=== PATIENT | male | born 1940 | race Caucasian/White ===

== ENCOUNTER 2016-11-08 19:07 | Inpatient (IN) ==
[2016-11-08] MEDS ORDERED: GI Cocktail 40 ML EACH PO ONE (19:20)
[2016-11-08] MEDS ORDERED: Aspirin 325 MG TABLET PO ONE (19:20)
--- NOTE | 2016-11-08 19:23 | Emergency Department Note ---
Disposition Clinical Impression: Epigastric pain, Diabetes mellitus, new onset, Acute kidney injury Chest pain Qualifiers: Chest pain type: unspecified Qualified Code(s): R07.9 - Chest pain, unspecified DKA (diabetic ketoacidoses) Qualifiers: Diabetes mellitus type: type 2 Diabetes mellitus complication detail: without coma Qualified Code(s): E13.10 - Other specified diabetes mellitus with ketoacidosis without coma Disposition: Admitted As Inpatient Condition: Serious Time of Disposition: 21:02 Chest Pain HPI - General Chief Complaint: ED Chest Pain Stated Complaint: CP Time Seen by Provider: 11/08/16 19:14 Source: patient, EMS Mode of arrival: ambulatory Limitations: no limitations Vital Signs Reviewed: Yes Nursing Notes Reviewed: Yes - History of Present Illness HPI Narrative: Patient is a 76-year-old male with past medical history of CVA, 2 previous MIs, previous bypass, previous stenting 4, skin cancer with mets and on chemo. He presents today due to 2 different complaints. First complaint is chest pain that has been occurring for the past 2-3 weeks. He states that it is left sided , sharp in nature, occurs for maybe 1-2 minutes and then goes away. It happens while at rest. Does not occur during exertion. He also complains of some mild right-sided jaw pain at the same time the left chest pain occurs. He has a second complaint of epigastric pain and burning. He said that this began today , he has mild burning pain in the epigastric region that radiates up into his chest. Denies having any history of GERD. Has not taken any medication home, has not taken aspirin, nitroglycerin, and antacids. As any other nausea, vomiting, fevers, change in bowel or bladder habits. Severity scale (1-10): 0 - Related Data Home Medications Medication Instructions Recorded Confirmed Clopidogrel [Plavix] 75 mg PO DAILY 07/23/15 11/08/16 Cyclobenzaprine [Flexeril] 10 mg PO HS 07/23/15 11/08/16 Metoprolol [Lopressor] 50 mg PO BID 07/23/15 11/08/16 Simvastatin [Zocor] 40 mg PO HS 07/23/15 11/08/16 Cetirizine HCl [Zyrtec] 10 mg PO DAILY PRN 06/14/16 11/07/16 Cyanocobalamin (Vitamin B-12) 1,000 mcg PO DAILY 06/14/16 11/07/16 [Vitamin B12] FLUoxetine HCl [Prozac] 20 mg PO DAILY 09/17/16 11/08/16 Albuterol Sulfate [Ventolin Hfa] 2 puff IH Q4H PRN 11/08/16 11/08/16 Isosorbide MONOnitrate (24 HR) 30 mg PO DAILY 11/08/16 11/08/16 [Imdur] Previous Rx's Medication Instructions Recorded Budesonide/Formoterol 160/4.5 1 puff IH BIDR #1 hfa.aer.ad 07/23/15 [Symbicort] Lidocaine/Prilocaine CREAM [Emla] 1 appl TP AD PRN #1 tube 04/12/16 Prochlorperazine Maleate 10 mg PO Q6HR PRN #60 tablet 04/12/16 [Compazine] Magic Mouthwash 5 ml PO Q4H PRN #240 ml 05/14/16 Megestrol Acetate [Megace] 10 ml PO BID #400 mls 11/07/16 Allergies Allergy/AdvReac Type Severity Reaction Status Date / Time shellfish derived Allergy Rash Verified 10/05/16 13:36 tree and shrub pollen Allergy Rash Verified 10/05/16 13:36 All systems ED: reviewed and negative except as stated. Chest Pain PMH - Past Medical History Medical history: Reports: arthritis, cancer, COPD, coronary artery disease, CVA , GERD, hyperlipidemia, hypertension, malignancy, myocardial infarction, osteoporosis, TIA Surgical history: Reports: cancer surgery, coronary bypass (CABG), other Psychiatric history: Reports: anxiety, depression - Social History Smoking Status: Former smoker Alcohol use: Reports: rarely Drug use: Reports: none Physical Exam - General Limitations: no limitations General appearance: alert, other (Slow speech due to previous CVA) - Head Head exam: atraumatic, normocephalic, normal inspection - Eye Eye exam: Present: normal appearance, PERRL, EOMI - ENT ENT exam: normal exam, normal oropharynx, mucous membranes moist - Neck Neck exam: Present: normal inspection, full ROM, trachea midline - Chest Chest inspection: Present: normal inspection, symmetric chest wall rise. Absent : tenderness, rash - Respiratory Respiratory exam: Present: normal lung sounds bilaterally. Absent: respiratory distress, wheezes, stridor, accessory muscle use - Cardiovascular Cardiovascular exam: Present: regular rate, normal rhythm, normal heart sounds - Abdominal Exam Abdominal exam: Present: soft, tenderness (Mild tenderness in the epigastric region when palpated.). Absent: distention, guarding, rebound, rigidity - Extremities Exam Extremities exam: Present: normal inspection, full ROM. Absent: tenderness, pedal edema - Back Exam Back exam: Present: normal inspection, full ROM. Absent: tenderness - Neurological Exam Neurological exam: Present: alert, oriented X3, CN II-XII intact. Absent: motor sensory deficit - Psychiatric Psychiatric exam: Present: normal affect, normal mood - Skin Skin exam: Present: warm, dry, intact, normal color Course Course Narrative: Mildly hypertensive on presentation. Rest of vitals within normal limits. Physical exam shows no chest tenderness, lungs clear to auscultation, epigastric tenderness that is mild when palpated. Patient currently denies any left-sided chest pain. He does admit to some mild burning and epigastric region. We will give the patient aspirin, GI cocktail, obtain cardiac workup, obtain lipase. Concern for GERD versus pancreatitis. Also concern for ME due to previous cardiac history. 20:58 . Patient had blood sugars and 700s. Sodium and chloride are low. Bicarbonate is low. Potassium 5.5. Patient also has acute kidney injury. Patient has no history of diabetes in the past. His fluids started, insulin drip started as well. Additional DKA labs including VBG and a bit abducted butyrate. ABG pending. Beta hydroxybutyrate greater than 2.0. EKG shows normal sinus rhythm with no acute changes, chest x-ray negative, troponin negative. We will admit for new onset diabetes, DKA, acute kidney injury, chest pain rule out. 21:16 Dr. Coker accepted and requested blood cultures and a flu A, B, H1N1. Vital Signs Temperature 97.5 F L 11/08/16 19:10 Pulse Rate 91 11/08/16 19:10 Respiratory Rate 18 11/08/16 19:10 Blood Pressure 153/75 11/08/16 19:10 O2 Sat by Pulse Oximetry 97 11/08/16 19:10 Temperature 97.5 F L 11/08/16 19:10 Pulse Rate 80 11/08/16 20:45 Respiratory Rate 16 11/08/16 20:45 Blood Pressure 137/63 02/02/17 20:45 O2 Sat by Pulse Oximetry 97 11/08/16 20:45 Oxygen Delivery Oxygen Delivery Room Air Chest Pain - MDM Narrative Medical decision making narrative: Mildly hypertensive on presentation. Rest of vitals within normal limits. Physical exam shows no chest tenderness, lungs clear to auscultation, epigastric tenderness that is mild when palpated. Patient currently denies any left-sided chest pain. He does admit to some mild burning and epigastric region. We will give the patient aspirin, GI cocktail, obtain cardiac workup, obtain lipase. Concern for GERD versus pancreatitis. Also concern for ME due to previous cardiac history. 20:58 . Patient had blood sugars and 700s. Sodium and chloride are low. Bicarbonate is low. Potassium 5.5. Patient also has acute kidney injury. Patient has no history of diabetes in the past. His fluids started, insulin drip started as well. Additional DKA labs including VBG and a bit abducted butyrate. ABG pending. Beta hydroxybutyrate greater than 2.0. EKG shows normal sinus rhythm with no acute changes, chest x-ray negative, troponin negative. We will admit for new onset diabetes, DKA, acute kidney injury, chest pain rule out. 21:16 Dr. Coker accepted and requested blood cultures and a flu A, B, H1N1. - Medical Records Medical records reviewed: Yes I reviewed the patient's medical records. - Lab Data Lab results reviewed: Yes I reviewed the patient's lab results. Result diagrams: 11/08/16 19:43 11/08/16 19:43 Lab Results 11/08/16 11/08/16 11/08/16 Range/Units 19:43 19:43 19:43 WBC 17.6 H (4.3-11.1) K/mcL RBC 5.54 H (4.19-5.50) M/mcL Hgb 17.0 H (12.9-16.9) g/dL Hct 51.1 H (37.5-50.1) % MCV 92.2 (83.0-100.0) fL MCH 30.7 (28.0-33.3) pg MCHC 33.3 (31.6-35.5) g/dL RDW 12.3 (11.5-14.5) % Plt Count 300 (140-400) K/mcL MPV 10.2 (9.4-12.4) fL Immature Gran % 0.6 (0-4) % Seg Neutrophils % 87.9 % Lymphocytes % 4.5 % Monocytes % 6.8 % Eosinophils % 0.0 % Basophils % 0.2 % Neutrophils # 15.5 H (1.6-8.9) K/mcL Lymphocytes # 0.8 (0.6-4.6) K/mcL Monocytes # 1.2 (0.0-1.3) K/mcL Eosinophils # 0.0 (0.0-0.6) K/mcL Basophils # 0.0 (0.0-0.2) K/mcL PT 10.7 (9.4-12.1) Seconds INR 1.0 APTT 25.7 L (26.0-36.0) Seconds VBG pH (7.32-7.42) pH Units VBG pCO2 (41-51) mmHg VBG pO2 (25-40) mmHg VBG HCO3 (21-27) mEq/L Sodium (136-145) mEq/L Potassium (3.5-4.5) mEq/L Chloride (98-109) mEq/L Carbon Dioxide (19-29) mEq/L BUN (8-26) mg/dL Creatinine (0.72-1.25) mg/dL Est GFR ( Amer) (> 60) Est GFR (Non-Af Amer) (> 60) BUN/Creatinine Ratio (6-26) Glucose (70-99) mg/dL Calculated Osmolality (280-300) Calcium (8.6-10.8) mg/dL Phosphorus (2.3-4.7) mg/dL Magnesium (1.6-2.6) mg/dL Troponin I (0-0.03) ng/mL Lipase 25 (8-78) Units/L Beta-Hydroxybutyric Acd (0.02-0.27) mmol/L Urine Color (Yellow) Urine Clarity (Clear) Urine pH (5.0-8.0) pH Units Ur Specific [place] (1.010-1.025) Urine Protein (Neg-Trace) mg/dL Urine Glucose (UA) (Normal) mg/dL Urine Ketones (Negative) mg/dL Urine Blood (Negative) Urine Nitrite (Negative) Urine Bilirubin (Negative) Urine Urobilinogen (Normal) mg/dL Ur Leukocyte Esterase (Negative) Urine Microscopic RBC (0-3) per hpf Urine Microscopic WBC (0-3) per hpf Ur Squamous Epith Cells (None-Few) per lpf Urine Bacteria (None-Few) per hpf Hyaline Casts (None-Few) per lpf Ur Culture Indicated? (NO) 11/08/16 11/08/16 11/08/16 Range/Units 19:43 19:43 19:43 WBC (4.3-11.1) K/mcL RBC (4.19-5.50) M/mcL Hgb (12.9-16.9) g/dL Hct (37.5-50.1) % MCV (83.0-100.0) fL MCH (28.0-33.3) pg MCHC (31.6-35.5) g/dL RDW (11.5-14.5) % Plt Count (140-400) K/mcL MPV (9.4-12.4) fL Immature Gran % (0-4) % Seg Neutrophils % % Lymphocytes % % Monocytes % % Eosinophils % % Basophils % % Neutrophils # (1.6-8.9) K/mcL Lymphocytes # (0.6-4.6) K/mcL Monocytes # (0.0-1.3) K/mcL Eosinophils # (0.0-0.6) K/mcL Basophils # (0.0-0.2) K/mcL PT (9.4-12.1) Seconds INR APTT (26.0-36.0) Seconds VBG pH (7.32-7.42) pH Units VBG pCO2 (41-51) mmHg VBG pO2 (25-40) mmHg VBG HCO3 (21-27) mEq/L Sodium 128 L (136-145) mEq/L Potassium 5.5 H (3.5-4.5) mEq/L Chloride 94 L (98-109) mEq/L Carbon Dioxide 7 L* (19-29) mEq/L BUN 29 H (8-26) mg/dL Creatinine 1.92 H (0.72-1.25) mg/dL Est GFR ( Amer) 41 L (> 60) Est GFR (Non-Af Amer) 34 L (> 60) BUN/Creatinine Ratio 15 (6-26) Glucose 778 H* (70-99) mg/dL Calculated Osmolality 310 H (280-300) Calcium 10.0 (8.6-10.8) mg/dL Phosphorus 5.5 H (2.3-4.7) mg/dL Magnesium 2.2 (1.6-2.6) mg/dL Troponin I 0.00 (0-0.03) ng/mL Lipase (8-78) Units/L Beta-Hydroxybutyric Acd > 2.00 H (0.02-0.27) mmol/L Urine Color (Yellow) Urine Clarity (Clear) Urine pH (5.0-8.0) pH Units Ur Specific [place] (1.010-1.025) Urine Protein (Neg-Trace) mg/dL Urine Glucose (UA) (Normal) mg/dL Urine Ketones (Negative) mg/dL Urine Blood (Negative) Urine Nitrite (Negative) Urine Bilirubin (Negative) Urine Urobilinogen (Normal) mg/dL Ur Leukocyte Esterase (Negative) Urine Microscopic RBC (0-3) per hpf Urine Microscopic WBC (0-3) per hpf Ur Squamous Epith Cells (None-Few) per lpf Urine Bacteria (None-Few) per hpf Hyaline Casts (None-Few) per lpf Ur Culture Indicated? (NO) 11/08/16 11/08/16 Range/Units 20:32 20:51 WBC (4.3-11.1) K/mcL RBC (4.19-5.50) M/mcL Hgb (12.9-16.9) g/dL Hct (37.5-50.1) % MCV (83.0-100.0) fL MCH (28.0-33.3) pg MCHC (31.6-35.5) g/dL RDW (11.5-14.5) % Plt Count (140-400) K/mcL MPV (9.4-12.4) fL Immature Gran % (0-4) % Seg Neutrophils % % Lymphocytes % % Monocytes % % Eosinophils % % Basophils % % Neutrophils # (1.6-8.9) K/mcL Lymphocytes # (0.6-4.6) K/mcL Monocytes # (0.0-1.3) K/mcL Eosinophils # (0.0-0.6) K/mcL Basophils # (0.0-0.2) K/mcL PT (9.4-12.1) Seconds INR APTT (26.0-36.0) Seconds VBG pH 7.10 L* (7.32-7.42) pH Units VBG pCO2 37 L (41-51) mmHg VBG pO2 26 (25-40) mmHg VBG HCO3 11.5 L (21-27) mEq/L Sodium (136-145) mEq/L Potassium (3.5-4.5) mEq/L Chloride (98-109) mEq/L Carbon Dioxide (19-29) mEq/L BUN (8-26) mg/dL Creatinine (0.72-1.25) mg/dL Est GFR ( Amer) (> 60) Est GFR (Non-Af Amer) (> 60) BUN/Creatinine Ratio (6-26) Glucose (70-99) mg/dL Calculated Osmolality (280-300) Calcium (8.6-10.8) mg/dL Phosphorus (2.3-4.7) mg/dL Magnesium (1.6-2.6) mg/dL Troponin I (0-0.03) ng/mL Lipase (8-78) Units/L Beta-Hydroxybutyric Acd (0.02-0.27) mmol/L Urine Color Yellow (Yellow) Urine Clarity Clear (Clear) Urine pH 5.5 (5.0-8.0) pH Units Ur Specific [place] 1.030 H (1.010-1.025) Urine Protein 30 H (Neg-Trace) mg/dL Urine Glucose (UA) >=1000 H (Normal) mg/dL Urine Ketones 80 H (Negative) mg/dL Urine Blood Small H (Negative) Urine Nitrite Negative (Negative) Urine Bilirubin Negative (Negative) Urine Urobilinogen Normal (Normal) mg/dL Ur Leukocyte Esterase Negative (Negative) Urine Microscopic RBC 0-3 (0-3) per hpf Urine Microscopic WBC 0-3 (0-3) per hpf Ur Squamous Epith Cells Many H (None-Few) per lpf Urine Bacteria None Seen (None-Few) per hpf Hyaline Casts None Seen (None-Few) per lpf Ur Culture Indicated? NO (NO) - Radiology Data Radiology results reviewed: Yes I reviewed the patient's radiology results. Chest X-Ray 11/08/16 19:20 IMPRESSION: 1. No focal airspace disease. D/ / Vidal Gonzalez MD / Vidal Gonzalez MD Interpreting Provider: Vidal Gonzalez MD - EKG Data EKG attestation: Yes I reviewed and interpreted this EKG. EKG results narrative: 11/08/2016 at 19:12. Normal sinus rhythm. Rate 89. QTC 402. Normal axis. T- wave inversions in aVR, V1. No acute ST elevation or depression. Q waves in 2 , 3, aVF from old ME. No acute changes from previous EKG on 09/16/2016 Heart Score - Score History: Moderately Suspicious EKG: Normal Age: Greater than 65 Risk Factors: Equal/Greater than 3 risk factor or history of atherosclerotic disease Troponin: Less than normal limit HEART Score Total: 5
[2016-11-08 20:02] LABS: Basophils % 0.2 %; Hematocrit 51.1 % (37.5-50.1); Immature Granulocytes % 0.6 % (0-4); Lymphocytes # 0.8 K/mcL (0.6-4.6); Lymphocytes % 4.5 %; Mean Corpuscular HGB Conc 33.3 g/dL (31.6-35.5); Mean Corpuscular Hemoglobin 30.7 pg (28.0-33.3); Mean Corpuscular Volume 92.2 fL (83.0-100.0); Mean Platelet Volume 10.2 fL (9.4-12.4); Monocytes # 1.2 K/mcL (0.0-1.3); Monocytes % 6.8 %; Neutrophils # 15.5 K/mcL (1.6-8.9); Platelet Count 300 K/mcL (140-400); Red Blood Count 5.54 M/mcL (4.19-5.50); Red Cell Distribution Width 12.3 % (11.5-14.5); Segmented Neutrophils % 87.9 %
[2016-11-08 20:08] LABS: Prothrombin Time 10.7 Seconds (9.4-12.1)
[2016-11-08 20:11] LABS: Activated Partial Thrombo Time 25.7 Seconds (26.0-36.0)
[2016-11-08 20:15] LABS: Potassium 5.5 mEq/L (3.5-4.5)
[2016-11-08] MEDS ORDERED: 0.9 % Sodium Chloride 1,000 ML IVC ONE ×2 (20:26→20:29)
[2016-11-08] MEDS ORDERED: *HR* Dextrose 50 % in Water (Syg) 50 ML SYRINGE IVP PRN ×2 (20:30→21:40)
[2016-11-08] MEDS ORDERED: Insulin Human Regular 100 UNIT in 0.9 % Sodium Chloride 100 ML IVC SCH ×2 (20:30→21:45)
[2016-11-08 20:46] LABS: Bilirubin,Urine Negative (Negative); Blood,Urine Small (Negative); Clarity,Urine Clear (Clear); Color,Urine Yellow (Yellow); Glucose,Urine (UA) >=1000 mg/dL (Normal); Ketones,Urine 80 mg/dL (Negative); Leukocyte Esterase,Urine Negative (Negative); Nitrite,Urine Negative (Negative); PH,Urine 5.5 pH Units (5.0-8.0); Protein,Urine 30 mg/dL (Neg-Trace); Urobilinogen,Urine Normal (Normal)
[2016-11-08 20:46] LABS: Magnesium 2.2 mg/dL (1.6-2.6); Phosphorous 5.5 mg/dL (2.3-4.7)
[2016-11-08 20:49] LABS: Bacteria,Urine None Seen per hpf (None-Few); Hyaline Casts,Urine None Seen per lpf (None-Few); RBC,Urine 0-3 per hpf (0-3); Squamous Epithelial Cell,Urine Many per lpf (None-Few); WBC,Urine 0-3 per hpf (0-3)
[2016-11-08 20:59] LABS: VBG HCO3 11.5 mEq/L (21-27)
[2016-11-08 21:01] LABS: VBG PH 7.1 pH Units (7.32-7.42)
--- NOTE | 2016-11-08 21:13 | Emergency Department Note ---
Disposition Clinical Impression: Epigastric pain, Diabetes mellitus, new onset, Acute kidney injury Chest pain Qualifiers: Chest pain type: unspecified Qualified Code(s): R07.9 - Chest pain, unspecified DKA (diabetic ketoacidoses) Qualifiers: Diabetes mellitus type: type 2 Diabetes mellitus complication detail: without coma Qualified Code(s): E13.10 - Other specified diabetes mellitus with ketoacidosis without coma Disposition: Admitted As Inpatient Condition: Serious General Adult HPI - General Chief complaint: ED Chest Pain Stated complaint: CP Time Seen by Provider: 11/08/16 19:14 Source: patient, EMS Mode of arrival: ambulatory Limitations: no limitations - History of Present Illness Pain Scale: 0 - Related Data Home Medications Medication Instructions Recorded Confirmed Clopidogrel [Plavix] 75 mg PO DAILY 07/23/15 11/08/16 Cyclobenzaprine [Flexeril] 10 mg PO HS 07/23/15 11/08/16 Metoprolol [Lopressor] 50 mg PO BID 07/23/15 11/08/16 Simvastatin [Zocor] 40 mg PO HS 07/23/15 11/08/16 Cetirizine HCl [Zyrtec] 10 mg PO DAILY PRN 06/14/16 11/07/16 Cyanocobalamin (Vitamin B-12) 1,000 mcg PO DAILY 06/14/16 11/07/16 [Vitamin B12] FLUoxetine HCl [Prozac] 20 mg PO DAILY 09/17/16 11/08/16 Albuterol Sulfate [Ventolin Hfa] 2 puff IH Q4H PRN 11/08/16 11/08/16 Isosorbide MONOnitrate (24 HR) 30 mg PO DAILY 11/08/16 11/08/16 [Imdur] Previous Rx's Medication Instructions Recorded Budesonide/Formoterol 160/4.5 1 puff IH BIDR #1 hfa.aer.ad 07/23/15 [Symbicort] Lidocaine/Prilocaine CREAM [Emla] 1 appl TP AD PRN #1 tube 04/12/16 Prochlorperazine Maleate 10 mg PO Q6HR PRN #60 tablet 04/12/16 [Compazine] Magic Mouthwash 5 ml PO Q4H PRN #240 ml 05/14/16 Megestrol Acetate [Megace] 10 ml PO BID #400 mls 11/07/16 Allergies Allergy/AdvReac Type Severity Reaction Status Date / Time shellfish derived Allergy Rash Verified 10/05/16 13:36 tree and shrub pollen Allergy Rash Verified 10/05/16 13:36 Past Medical History - Past Medical History Medical history: Reports: arthritis, cancer, COPD, coronary artery disease, CVA , GERD, hyperlipidemia, hypertension, malignancy, myocardial infarction, osteoporosis, TIA Surgical history: Reports: cancer surgery, coronary bypass (CABG), other Psychiatric history: Reports: anxiety, depression - Social History Smoking Status: Former smoker Smokeless Tobacco Status: No Alcohol use: Reports: rarely Drug use: Reports: none Physical Exam - General Limitations: no limitations General appearance: alert, other (Slow speech due to previous CVA) Course - Reevaluation(s) Reevaluation #1: I saw the patient with the resident, Dr. Chan. Patient presents with 2-3 days of weakness and nausea. He has also been coughing over the past 24 hours. He is had no appetite and is not eating. On examination he has a frequent cough that produces a thick sputum. Lab workup shows diabetic ketoacidosis with a glucose of 700 and a bicarbonate of 7. We are hydrating the patient and will get an insulin drip started. He will need to be admitted to the hospital. Time: 21:12 Vital Signs Temperature 97.5 F L 11/08/16 19:10 Pulse Rate 91 11/08/16 19:10 Respiratory Rate 18 11/08/16 19:10 Blood Pressure 153/75 11/08/16 19:10 O2 Sat by Pulse Oximetry 97 11/08/16 19:10 Temperature 97.5 F L 11/08/16 19:10 Pulse Rate 80 11/08/16 20:45 Respiratory Rate 16 11/08/16 20:45 Blood Pressure 137/63 11/08/16 20:45 O2 Sat by Pulse Oximetry 97 11/08/16 20:45 Oxygen Delivery Oxygen Delivery Room Air Medical Decision Making - Lab Data Result diagrams: 11/08/16 19:43 11/08/16 19:43 Lab Results 11/08/16 11/08/16 11/08/16 Range/Units 19:43 19:43 19:43 WBC 17.6 H (4.3-11.1) K/mcL RBC 5.54 H (4.19-5.50) M/mcL Hgb 17.0 H (12.9-16.9) g/dL Hct 51.1 H (37.5-50.1) % MCV 92.2 (83.0-100.0) fL MCH 30.7 (28.0-33.3) pg MCHC 33.3 (31.6-35.5) g/dL RDW 12.3 (11.5-14.5) % Plt Count 300 (140-400) K/mcL MPV 10.2 (9.4-12.4) fL Immature Gran % 0.6 (0-4) % Seg Neutrophils % 87.9 % Lymphocytes % 4.5 % Monocytes % 6.8 % Eosinophils % 0.0 % Basophils % 0.2 % Neutrophils # 15.5 H (1.6-8.9) K/mcL Lymphocytes # 0.8 (0.6-4.6) K/mcL Monocytes # 1.2 (0.0-1.3) K/mcL Eosinophils # 0.0 (0.0-0.6) K/mcL Basophils # 0.0 (0.0-0.2) K/mcL PT 10.7 (9.4-12.1) Seconds INR 1.0 APTT 25.7 L (26.0-36.0) Seconds VBG pH (7.32-7.42) pH Units VBG pCO2 (41-51) mmHg VBG pO2 (25-40) mmHg VBG HCO3 (21-27) mEq/L Sodium (136-145) mEq/L Potassium (3.5-4.5) mEq/L Chloride (98-109) mEq/L Carbon Dioxide (19-29) mEq/L BUN (8-26) mg/dL Creatinine (0.72-1.25) mg/dL Est GFR ( Amer) (> 60) Est GFR (Non-Af Amer) (> 60) BUN/Creatinine Ratio (6-26) Glucose (70-99) mg/dL Calculated Osmolality (280-300) Calcium (8.6-10.8) mg/dL Phosphorus (2.3-4.7) mg/dL Magnesium (1.6-2.6) mg/dL Troponin I (0-0.03) ng/mL Lipase 25 (8-78) Units/L Beta-Hydroxybutyric Acd (0.02-0.27) mmol/L Urine Color (Yellow) Urine Clarity (Clear) Urine pH (5.0-8.0) pH Units Ur Specific [place] (1.010-1.025) Urine Protein (Neg-Trace) mg/dL Urine Glucose (UA) (Normal) mg/dL Urine Ketones (Negative) mg/dL Urine Blood (Negative) Urine Nitrite (Negative) Urine Bilirubin (Negative) Urine Urobilinogen (Normal) mg/dL Ur Leukocyte Esterase (Negative) Urine Microscopic RBC (0-3) per hpf Urine Microscopic WBC (0-3) per hpf Ur Squamous Epith Cells (None-Few) per lpf Urine Bacteria (None-Few) per hpf Hyaline Casts (None-Few) per lpf Ur Culture Indicated? (NO) 11/08/16 11/08/16 11/08/16 Range/Units 19:43 19:43 19:43 WBC (4.3-11.1) K/mcL RBC (4.19-5.50) M/mcL Hgb (12.9-16.9) g/dL Hct (37.5-50.1) % MCV (83.0-100.0) fL MCH (28.0-33.3) pg MCHC (31.6-35.5) g/dL RDW (11.5-14.5) % Plt Count (140-400) K/mcL MPV (9.4-12.4) fL Immature Gran % (0-4) % Seg Neutrophils % % Lymphocytes % % Monocytes % % Eosinophils % % Basophils % % Neutrophils # (1.6-8.9) K/mcL Lymphocytes # (0.6-4.6) K/mcL Monocytes # (0.0-1.3) K/mcL Eosinophils # (0.0-0.6) K/mcL Basophils # (0.0-0.2) K/mcL PT (9.4-12.1) Seconds INR APTT (26.0-36.0) Seconds VBG pH (7.32-7.42) pH Units VBG pCO2 (41-51) mmHg VBG pO2 (25-40) mmHg VBG HCO3 (21-27) mEq/L Sodium 128 L (136-145) mEq/L Potassium 5.5 H (3.5-4.5) mEq/L Chloride 94 L (98-109) mEq/L Carbon Dioxide 7 L* (19-29) mEq/L BUN 29 H (8-26) mg/dL Creatinine 1.92 H (0.72-1.25) mg/dL Est GFR ( Amer) 41 L (> 60) Est GFR (Non-Af Amer) 34 L (> 60) BUN/Creatinine Ratio 15 (6-26) Glucose 778 H* (70-99) mg/dL Calculated Osmolality 310 H (280-300) Calcium 10.0 (8.6-10.8) mg/dL Phosphorus 5.5 H (2.3-4.7) mg/dL Magnesium 2.2 (1.6-2.6) mg/dL Troponin I 0.00 (0-0.03) ng/mL Lipase (8-78) Units/L Beta-Hydroxybutyric Acd > 2.00 H (0.02-0.27) mmol/L Urine Color (Yellow) Urine Clarity (Clear) Urine pH (5.0-8.0) pH Units Ur Specific [place] (1.010-1.025) Urine Protein (Neg-Trace) mg/dL Urine Glucose (UA) (Normal) mg/dL Urine Ketones (Negative) mg/dL Urine Blood (Negative) Urine Nitrite (Negative) Urine Bilirubin (Negative) Urine Urobilinogen (Normal) mg/dL Ur Leukocyte Esterase (Negative) Urine Microscopic RBC (0-3) per hpf Urine Microscopic WBC (0-3) per hpf Ur Squamous Epith Cells (None-Few) per lpf Urine Bacteria (None-Few) per hpf Hyaline Casts (None-Few) per lpf Ur Culture Indicated? (NO) 11/08/16 11/08/16 Range/Units 20:32 20:51 WBC (4.3-11.1) K/mcL RBC (4.19-5.50) M/mcL Hgb (12.9-16.9) g/dL Hct (37.5-50.1) % MCV (83.0-100.0) fL MCH (28.0-33.3) pg MCHC (31.6-35.5) g/dL RDW (11.5-14.5) % Plt Count (140-400) K/mcL MPV (9.4-12.4) fL Immature Gran % (0-4) % Seg Neutrophils % % Lymphocytes % % Monocytes % % Eosinophils % % Basophils % % Neutrophils # (1.6-8.9) K/mcL Lymphocytes # (0.6-4.6) K/mcL Monocytes # (0.0-1.3) K/mcL Eosinophils # (0.0-0.6) K/mcL Basophils # (0.0-0.2) K/mcL PT (9.4-12.1) Seconds INR APTT (26.0-36.0) Seconds VBG pH 7.10 L* (7.32-7.42) pH Units VBG pCO2 37 L (41-51) mmHg VBG pO2 26 (25-40) mmHg VBG HCO3 11.5 L (21-27) mEq/L Sodium (136-145) mEq/L Potassium (3.5-4.5) mEq/L Chloride (98-109) mEq/L Carbon Dioxide (19-29) mEq/L BUN (8-26) mg/dL Creatinine (0.72-1.25) mg/dL Est GFR ( Amer) (> 60) Est GFR (Non-Af Amer) (> 60) BUN/Creatinine Ratio (6-26) Glucose (70-99) mg/dL Calculated Osmolality (280-300) Calcium (8.6-10.8) mg/dL Phosphorus (2.3-4.7) mg/dL Magnesium (1.6-2.6) mg/dL Troponin I (0-0.03) ng/mL Lipase (8-78) Units/L Beta-Hydroxybutyric Acd (0.02-0.27) mmol/L Urine Color Yellow (Yellow) Urine Clarity Clear (Clear) Urine pH 5.5 (5.0-8.0) pH Units Ur Specific [place] 1.030 H (1.010-1.025) Urine Protein 30 H (Neg-Trace) mg/dL Urine Glucose (UA) >=1000 H (Normal) mg/dL Urine Ketones 80 H (Negative) mg/dL Urine Blood Small H (Negative) Urine Nitrite Negative (Negative) Urine Bilirubin Negative (Negative) Urine Urobilinogen Normal (Normal) mg/dL Ur Leukocyte Esterase Negative (Negative) Urine Microscopic RBC 0-3 (0-3) per hpf Urine Microscopic WBC 0-3 (0-3) per hpf Ur Squamous Epith Cells Many H (None-Few) per lpf Urine Bacteria None Seen (None-Few) per hpf Hyaline Casts None Seen (None-Few) per lpf Ur Culture Indicated? NO (NO) Attestation Statement - Attestation Attestation: I, Dr. Lackey, examined this patient [id number] and my medical decision- making was reviewed with Dr. Chan, Resident Physician. I agree with the documented findings, disposition and treatment plan as described except to the extent set forth below. Please see my progress notes for details.
[2016-11-08] MEDS ORDERED: D5% in 0.45% NACL 1,000 ML IVC PRN (21:40)
[2016-11-08] MEDS ORDERED: MOM Conc 10 ML UD.LIQ PO PRN (21:40)
[2016-11-08] MEDS ORDERED: Insulin LISPRO 300 UNITS/3 ML VIAL SQ PRN ×2 (21:40)
[2016-11-08] MEDS ORDERED: Ondansetron 4 MG/2 ML VIAL IVP PRN (21:40)
[2016-11-08] MEDS ORDERED: *HR* HYDROmorphone (PF) 1 MG/ML SYRINGE IVP PRN (21:40)
[2016-11-08] MEDS ORDERED: Acetaminophen 325 MG TABLET PO PRN (21:40)
[2016-11-08] MEDS ORDERED: *HR* OxyCODONE Immed Rel 5 MG TABLET PO PRN (21:40)
[2016-11-08] MEDS ORDERED: Insulin LISPRO 300 UNITS/3 ML VIAL SQ ONE (21:40)
[2016-11-08] MEDS ORDERED: Pantoprazole 40 MG VIAL IVP STA (21:40)
[2016-11-08] MEDS ORDERED: Naloxone 0.4 MG/ML INJ IVP PRN (21:40)
[2016-11-08] MEDS ORDERED: Mag Hydrox/Al Hydrox/Simeth 30 ML UDC PO PRN (21:40)
[2016-11-08] MEDS ORDERED: 0.45 % Sodium Chloride w/KCl 20 MEQ/1,000 ML MLS IVC SCH ×2 (21:45)
[2016-11-08] MEDS ORDERED: 0.9 % Sodium Chloride w KCl 20 MEQ/1,000 ML MLS IVC SCH (21:45)
[2016-11-08 23:15] LABS: VBG HCO3 13.6 mEq/L (21-27)
[2016-11-08 23:23] LABS: VBG PH 7.15 pH Units (7.32-7.42)
[2016-11-08 23:26] LABS: Magnesium 2.2 mg/dL (1.6-2.6)
[2016-11-08 23:28] LABS: Calcium 9.1 mg/dL (8.6-10.8); Potassium 4.1 mEq/L (3.5-4.5)
--- NOTE | 2016-11-09 00:20 | Pulmonology History & Physical ---
Date of Encounter: 11/09/16 Time of Encounter: 20:00 History of Present Illness Chief complaint: weakness HPI: PCP: Elmo Nawafselena Mr. Dubon is a 76 year old male with PMHx of lymphoepithelial carcinoma (s/p chemotherapy, in remission), SCC of head and neck, COPD (not on home oxygen), Hx of TIA, HTN, Hx of AK, CAD (s/p CABG x2). History was obtained from patient and his two sisters, who were present at bedside. Patient states that he went to his PCP office today and got blood work done. His blood work showed glucose over 750, but he was not called or informed about the results of his bloodwork until he came to the ED. Patient states he had never been diagnosed with diabetes previously. He complains of polyphagia and polydipsia, polyuria that started back in June, which was also the time he was undergoing chemotherapy. Patient also complains of weakness that started about three days ago. He says he cannot walk across the room properly, and has to move very slowly. He also complains of dry mouth, fatigue, occasional SOB. Family members state that his speech has been a lot more slow than usual and he has been lethargic. He also complains of occasional blurred vision that started yesterday. He reports nausea but denies vomiting, diarrhea, fever, chills. He has a productive cough with white sputum, denies hemoptysis. Patient has had chest pain that radiates to jaw for the past couple weeks that sometimes wakes him up in the middle of the night. He currently denies having chest pain. His sister states he has lost 15 pounds since September. Social Hx: lives by himself at home. His sister lives within one block of him. CUrrent smoker. has smoked about 2.5 PPD for the past 66 years. Denies alcohol or illicit drug use. Family Hx: father of AK at 57, mother at 97 of CHF (also had HTN, uterine cancer, stroke). His siblings have Afib, COPD, DUNN, arthritis. surgical hx: CABGx2 in 1997 and 2002. Mohs procedure for BCC in 1950s. Past Med Surg Social Fam HX - Past Medical History Medical history: arthritis, cancer, COPD, coronary artery disease, CVA, GERD, hyperlipidemia, hypertension, malignancy, myocardial infarction, osteoporosis, TIA Psychiatric history: anxiety, depression - Past Surgical History Surgical History: cancer surgery, coronary bypass (CABG), other - Social History Smoking Status: Current every day smoker Smokeless Tobacco Status: No Alcohol use: rarely Drug use: none - Family History Father Living Status: Age at : 57 Cause of : AK Hx Family Cardiac Disorders: Yes Mother History Unknown: Yes Living Status: Age at : 97 Cause of : stroke Hx Family Neuromuscular Disorders: Yes Hx Family Neurologic Disorders: Yes Medications and Allergies Budesonide/Formoterol 160/4.5 [Symbicort] 1 puff IH BIDR #1 hfa.aer.ad 07/23/15 [Rx] Clopidogrel [Plavix] 75 mg PO DAILY 07/23/15 [History] Cyclobenzaprine [Flexeril] 10 mg PO HS 07/23/15 [History] Metoprolol [Lopressor] 50 mg PO BID 07/23/15 [History] Simvastatin [Zocor] 40 mg PO HS 07/23/15 [History] Lidocaine/Prilocaine CREAM [Emla] 1 appl TP AD PRN #1 tube 04/12/16 [Rx] Prochlorperazine Maleate [Compazine] 10 mg PO Q6HR PRN #60 tablet 04/12/16 [Rx] Magic Mouthwash 5 ml PO Q4H PRN #240 ml 05/14/16 [Rx] Cetirizine HCl [Zyrtec] 10 mg PO DAILY PRN 06/14/16 [History] Cyanocobalamin (Vitamin B-12) [Vitamin B12] 1,000 mcg PO DAILY 06/14/16 [History ] FLUoxetine HCl [Prozac] 20 mg PO DAILY 09/17/16 [History] Megestrol Acetate [Megace] 10 ml PO BID #400 mls 11/07/16 [Rx] Albuterol Sulfate [Ventolin Hfa] 2 puff IH Q4H PRN 11/08/16 [History] Isosorbide MONOnitrate (24 HR) [Imdur] 30 mg PO DAILY 11/08/16 [History] Allergies shellfish derived Allergy (Verified 10/05/16 13:36) Rash tree and shrub pollen Allergy (Verified 10/05/16 13:36) Rash All Systems: A 10-system review of systems was performed and is negative for pertinent findings except as documented above in the HPI. - Constitutional Constitutional: chills, fever(s), lethargy, weakness, weight loss (15 pound weight loss since September. ), no anorexia, no frequent falls - Cardiovascular Cardiovascular: chest pain, dyspnea, radiating jaw, neck or arm pain (reports chest pain that radiates to the jaw), no leg edema, no lightheadedness, no syncope - Respiratory Respiratory: cough (with white sputum production. ), dyspnea on exertion, no hemoptysis - Gastrointestinal Gastrointestinal: nausea, no diarrhea, no vomiting - Genitourinary Genitourinary: urinary frequency - Neurological Neurological: abnormal gait, abnormal speech, no burning sensations Physical Examination Vital Signs: Vital Signs, Last 4 Hours Temp Pulse Resp BP Pulse Ox 11/08/16 23:34 97.6 F 67 18 126/62 98 Results - Laboratory Findings CBC and BMP: 11/08/16 19:43 11/08/16 22:58 PT/INR, D-dimer PT 10.7 Seconds (9.4-12.1) 11/08/16 19:43 Abnormal lab findings: Abnormal lab results WBC 17.6 K/mcL (4.3-11.1) H 11/08/16 19:43 RBC 5.54 M/mcL (4.19-5.50) H 11/08/16 19:43 Hgb 17.0 g/dL (12.9-16.9) H 11/08/16 19:43 Hct 51.1 % (37.5-50.1) H 11/08/16 19:43 Neutrophils # 15.5 K/mcL (1.6-8.9) H 11/08/16 19:43 APTT 25.7 Seconds (26.0-36.0) L 11/08/16 19:43 VBG pH 7.15 pH Units (7.32-7.42) L* 11/08/16 22:58 VBG pCO2 39 mmHg (41-51) L 11/08/16 22:58 VBG pO2 22 mmHg (25-40) L 11/08/16 22:58 VBG HCO3 13.6 mEq/L (21-27) L 11/08/16 22:58 Sodium 132 mEq/L (136-145) L 11/08/16 22:58 Carbon Dioxide 11 mEq/L (19-29) L 11/08/16 22:58 BUN 29 mg/dL (8-26) H 11/08/16 22:58 Creatinine 1.64 mg/dL (0.72-1.25) H 11/08/16 22:58 Est GFR ( Amer) 49 (> 60) L 11/08/16 22:58 Est GFR (Non-Af Amer) 41 (> 60) L 11/08/16 22:58 Glucose 530 mg/dL (70-99) H* 11/08/16 22:58 Serum Osmolality 321 mOsm/kg (280-300) H 11/08/16 22:58 Calculated Osmolality 304 (280-300) H 11/08/16 22:58 Beta-Hydroxybutyric Acd > 2.00 mmol/L (0.02-0.27) H 11/08/16 19:43 Ur Specific [place] 1.030 (1.010-1.025) H 11/08/16 20:32 Urine Protein 30 mg/dL (Neg-Trace) H 11/08/16 20:32 Urine Glucose (UA) >=1000 mg/dL (Normal) H 11/08/16 20:32 Urine Ketones 80 mg/dL (Negative) H 11/08/16 20:32 Urine Blood Small (Negative) H 11/08/16 20:32 Ur Squamous Epith Cells Many per lpf (None-Few) H 11/08/16 20:32
[2016-11-09] MEDS: 0.9 % Sodium Chloride w KCl 20 MEQ/1,000 ML MLS IVC SCH ×3 (00:38→06:36)
--- NOTE | 2016-11-09 01:03 | Internal Med History&Physical ---
<Luis Antonio Young - Last Filed: 11/09/16 01:44> Date of Encounter: 11/09/16 Time of Encounter: 21:00 Assessment and Plan (1) DKA (diabetic ketoacidoses) Status: Acute patient came in complaining of weakness and fatigue x3 days, with hx of polyphagia, polydipsia, numbness and tingling of LE bilaterally. He states that he is not on any home medications for diabetes, and that he has never been diagnosed with it before. blood glucose on presentation was 778, with presence of ketones, chemistry positive for beta hydroxybutyric acid. Patient had anion gap metabolic acidosis with GAP of 27 Following DKA protocol. Patient's sugars have improved to 370. Will slowly transition to SQ insulin once sugars below 250 and gap closes. Consult to diabetes clinical manager A1C pending consult to PT/OT, consult to nutrition Strongly recommend regular follow up with PCP after discharge for newly diagnosed DM. Qualifiers: Diabetes mellitus type: type 2 Diabetes mellitus complication detail: without coma Qualified Code(s): E13.10 - Other specified diabetes mellitus with ketoacidosis without coma (2) Diabetes mellitus, new onset Status: Acute plan as above. (3) SIRS (systemic inflammatory response syndrome) Status: Acute Patient has white count of 17.6, HR 91 CXR showed no acute process, but inconclusive in setting of dehydration. Source of infection unclear at this time. CT chest pending lactate pending blood and sputum cultures pending. influenza swab pending. (4) Chest pain Status: Acute Patient has hx of CAD s/p CABG x2 patient complains of intermittent chest pain with radiation to the jaw. He denies chest pain during exam. EKG did not show any sT elevation or depression, some t wave inversions noted. Tropes x2 negative. Consider stress test outpatient. Qualifiers: Chest pain type: unspecified Qualified Code(s): R07.9 - Chest pain, unspecified; R07.8 - Other chest pain (5) COPD (chronic obstructive pulmonary disease) Status: Chronic DuoNebs scheduled with albuterol prn methylprednisolone daily. EKG consistent with chronic lung disease. consider six minute walk test before discharge. Qualifiers: COPD type: unspecified COPD Qualified Code(s): J44.9 - Chronic obstructive pulmonary disease, unspecified (6) CAD (coronary artery disease) Status: Chronic s/p CABG x2. Continue home med statin, BB, Imdur, plavix Qualifiers: Coronary Disease-Associated Artery/Lesion type: unspecified vessel or lesion type [place] vs. transplanted heart: unspecified whether [place] or transplanted heart Associated angina: with unspecified angina Qualified Code (s): I25.119 - Atherosclerotic heart disease of [place] coronary artery with unspecified angina pectoris (7) Weakness Status: Acute likely due to DKA Continue to monitor. (8) Tobacco use Status: Chronic nicotine patch PRN (9) Hypertension Status: Acute continue lopressor, Qualifiers: Hypertension type: essential hypertension Qualified Code(s): I10 - Essential (primary) hypertension (10) DVT prophylaxis Status: Acute Heparin 5,000 units SQ BID Internal Medicine - H&P: HPI Chief complaint: weakness Admitted From: Emergency Dept Plans for Post Hospital Care: Home History of present illness: PCP: Elmo Arriaga Mr. Dubon is a 76 year old male with PMHx of lymphoepithelial carcinoma (s/p chemotherapy, in remission), SCC of head and neck, COPD (not on home oxygen), Hx of TIA, HTN, Hx of [place], CAD (s/p CABG x2). History was obtained from patient and his two sisters, who were present at bedside. Patient states that he went to his PCP office today and got blood work done. His blood work showed glucose over 750, but he was not called or informed about the results of his bloodwork until he came to the ED. Patient states he had never been diagnosed with diabetes previously. He complains of polyphagia and polydipsia, polyuria that started back in June, which was also the time he was undergoing chemotherapy. Patient also complains of weakness that started about three days ago. He says he cannot walk across the room properly, and has to move very slowly. He also complains of dry mouth, fatigue, occasional SOB. Family members state that his speech has been a lot more slow than usual and he has been lethargic. He also complains of occasional blurred vision that started yesterday. He reports nausea but denies vomiting, diarrhea, fever, chills. He has a productive cough with white sputum, denies hemoptysis. Patient has had chest pain that radiates to jaw for the past couple weeks that sometimes wakes him up in the middle of the night. He currently denies having chest pain. His sister states he has lost 15 pounds since September. Social Hx: lives by himself at home. His sister lives within one block of him. CUrrent smoker. has smoked about 2.5 PPD for the past 66 years. Denies alcohol or illicit drug use. Family Hx: father of NV at 57, mother at 97 of CHF (also had HTN, uterine cancer, stroke). His siblings have Afib, COPD, DUNN, arthritis. surgical hx: CABGx2 in 1997 and 2002. 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 Past Med Surg Social Fam HX - Past Medical History Medical history: arthritis, cancer, COPD, coronary artery disease, CVA, GERD, hyperlipidemia, hypertension, malignancy, myocardial infarction, osteoporosis, TIA Psychiatric history: anxiety, depression - Past Surgical History Surgical History: cancer surgery, coronary bypass (CABG), other - Social History Smoking Status: Current every day smoker Smokeless Tobacco Status: No Alcohol use: rarely Drug use: none - Family History Father Living Status: Age at : 57 Cause of : NV Hx Family Cardiac Disorders: Yes Mother History Unknown: Yes Living Status: Age at : 97 Cause of : stroke Hx Family Neuromuscular Disorders: Yes Hx Family Neurologic Disorders: Yes Internal Medicine - H&P: Meds Budesonide/Formoterol 160/4.5 [Symbicort] 1 puff IH BIDR #1 hfa.aer.ad 07/23/15 [Rx] Clopidogrel [Plavix] 75 mg PO DAILY 07/23/15 [History] Cyclobenzaprine [Flexeril] 10 mg PO HS 07/23/15 [History] Metoprolol [Lopressor] 50 mg PO BID 07/23/15 [History] Simvastatin [Zocor] 40 mg PO HS 07/23/15 [History] Lidocaine/Prilocaine CREAM [Emla] 1 appl TP AD PRN #1 tube 04/12/16 [Rx] Prochlorperazine Maleate [Compazine] 10 mg PO Q6HR PRN #60 tablet 04/12/16 [Rx] Magic Mouthwash 5 ml PO Q4H PRN #240 ml 05/14/16 [Rx] Cetirizine HCl [Zyrtec] 10 mg PO DAILY PRN 06/14/16 [History] Cyanocobalamin (Vitamin B-12) [Vitamin B12] 1,000 mcg PO DAILY 06/14/16 [History ] FLUoxetine HCl [Prozac] 20 mg PO DAILY 09/17/16 [History] Megestrol Acetate [Megace] 10 ml PO BID #400 mls 11/07/16 [Rx] Albuterol Sulfate [Ventolin Hfa] 2 puff IH Q4H PRN 11/08/16 [History] Isosorbide MONOnitrate (24 HR) [Imdur] 30 mg PO DAILY 11/08/16 [History] Blood Sugar Diagnostic [Glucose Test Strip] 1 each ACHS #180 strip 11/11/16 [ Rx] Blood-Glucose Meter, Drum-Type [Accu-Chek] 1 each ACHS #1 kit 11/11/16 [Rx] Insulin ASPART [Novolog Flexpen] 5 unit SQ TIDAC #1 insuln.pen 11/11/16 [Rx] Insulin DETEMIR [Levemir Flextouch] 20 unit SQ BID #1 insuln.pen 11/11/16 [Rx] Lancets [Accu-Chek Safe-T-Pro] 1 each ACHS #180 each 11/11/16 [Rx] Metformin [Glucophage] 500 mg PO BIDWM #60 tablet 11/11/16 [Rx] Allergies shellfish derived Allergy (Verified 10/05/16 13:36) Rash tree and shrub pollen Allergy (Verified 10/05/16 13:36) Rash All Systems PM: A 10-system review of systems was performed and is negative for pertinent findings except as documented above in the HPI. - Constitutional Constitutional: fatigue, lethargy, weakness, weight loss (fifteen pound weight loss since September. ), no chills, no falls - EENT Eyes: change in vision - Cardiovascular Cardiovascular ROS IM: chest pain (had intermittent chest pain the past couple weeks that radiates to his jaw. ) - Respiratory Respiratory: cough (cough with white sputum production) - Gastrointestinal Gastrointestinal: abdominal pain, no vomiting - Genitourinary Genitourinary ROS male: no hematuria - Neurological Neurological ROS: weakness, no focal weakness, no frequent falls, no headache(s) - Endocrine Endocrine IM: fatigue, polydipsia, polyuria - Constitutional Vitals: Temp Pulse Resp BP Pulse Ox 97.6 F 67 18 126/62 98 11/08/16 23:34 11/08/16 23:34 11/08/16 23:34 11/08/16 23:34 11/08/16 23:34 General appearance: Present: A&O X 3, pleasant, no acute distress, answers questions appropriately - Head Head exam: Present: atraumatic, normocephalic - Cardiovascular Cardiovascular exam: Present: distant heart sounds. Absent: JVD - GI/Abdominal GI/Abdominal exam: Present: normal bowel sounds, soft, tenderness (left lower quadrant tenderness. ). Absent: distended, guarding - Extremities Exam Extremities exam: Present: radial pulses palpable and symetrical. Absent: cyanotic, pedal edema Additional comments: clubbing noted on upper extremities. No diabetic ulcers noted on foot exam. - Neurological Exam Neurological exam: Present: alert, oriented X3, no focal deficits Internal Med - H&P Results - Labs CBC & Chem 7: 11/08/16 19:43 11/08/16 22:58 <Daquan Harris - Last Filed: 11/14/16 00:39> Date of Encounter: 11/08/16 Internal Medicine - H&P: HPI History of present illness: Mr. Dubon is a 76 year old male admitted to [facility] with a chief complaint of generalized weakness of uncertain etiology. The patient was visited and interviewed and examined. I examined this patient and my medical decision-making was reviewed with the Resident Physician. I agree with the documented findings, disposition and treatment plan as described except to the extent set forth below. Cumulative laboratory and radiographic database was reviewed and considered and discussed. Pertinent ancillary medical records including ECW and PCI documentation when available was reviewed and considered. Given the patient's presenting concerns, past medical history, clinical findings and symptoms, he is admitted this time to undergo further evaluation and disposition. Orders were written as per the computerized physician order worker system.............................. All Systems PM: A 10-system review of systems was performed and is negative for pertinent findings except as documented above in the HPI. - Constitutional Vitals: Temp Pulse Resp BP Pulse Ox 97.5 F L 66 18 128/92 97 11/11/16 11:24 11/11/16 12:15 11/11/16 11:24 11/11/16 11:24 11/11/16 11:24 Internal Med - H&P Results - Labs CBC & Chem 7: 11/11/16 06:58 11/11/16 06:58 - ABG Interpretation ABG results: 11/09/16 11/09/16 11/09/16 01:38 06:06 11:06 VBG pH 7.17 L* 7.27 L 7.23 L VBG pCO2 42 38 L 45 VBG pO2 28 33 24 L VBG HCO3 15.3 L 17.4 L 18.8 L - Impressions ITS Impressions Chest CT 11/09/16 09:45 IMPRESSION: Increased interstitial markings at both lung bases which may be seen with interstitial lung disease or interstitial infiltrate. Stable pulmonary nodules which may represent metastatic disease Stable possible skeletal metastasis in the left 5th rib COPD D/ / Jomar Diana MD / Jomar Diana MD Interpreting Provider: Jomar Diana MD Abnormal lab results RBC 4.09 M/mcL (4.19-5.50) L 11/11/16 06:58 Hgb 12.6 g/dL (12.9-16.9) L 11/11/16 06:58 Hct 35.7 % (37.5-50.1) L 11/11/16 06:58 APTT 25.7 Seconds (26.0-36.0) L 11/08/16 19:43 VBG pH 7.23 pH Units (7.32-7.42) L 11/09/16 11:06 VBG pO2 24 mmHg (25-40) L 11/09/16 11:06 VBG HCO3 18.8 mEq/L (21-27) L 11/09/16 11:06 Sodium 131 mEq/L (136-145) L 11/11/16 06:58 Glucose 325 mg/dL (70-99) H 11/11/16 06:58 POC Glucose 180 (58-89) H 11/11/16 11:26 Hemoglobin A1c 8.3 % (-5.6) H 11/09/16 01:38 C-Peptide 0.2 ng/mL (0.8-3.5) L 11/08/16 22:58 Serum Osmolality 321 mOsm/kg (280-300) H 11/08/16 22:58 Calcium 8.3 mg/dL (8.6-10.8) L 11/11/16 06:58 Magnesium 1.5 mg/dL (1.6-2.6) L 11/10/16 05:06 Alkaline Phosphatase 156 Units/L (38-126) H 11/09/16 01:38 Serum Total Protein 5.3 g/dL (6.0-8.3) L D 11/09/16 01:38 Albumin 3.4 g/dL (3.5-5.0) L D 11/09/16 01:38 Globulin 1.9 g/dL (2.4-3.5) L 11/09/16 01:38 HDL Cholesterol 22 mg/dL (40-59) L 11/09/16 01:38 Amylase 15 Units/L (25-125) L 11/09/16 01:38 Beta-Hydroxybutyric Acd > 2.00 mmol/L (0.02-0.27) H 11/09/16 01:38 Free T3 1.21 pg/mL (1.71-3.71) L 11/09/16 01:38 Ur Specific [place] 1.030 (1.010-1.025) H 11/08/16 20:32 Urine Protein 30 mg/dL (Neg-Trace) H 11/08/16 20:32 Urine Glucose (UA) >=1000 mg/dL (Normal) H 11/08/16 20:32 Urine Ketones 80 mg/dL (Negative) H 11/08/16 20:32 Urine Blood Small (Negative) H 11/08/16 20:32 Ur Squamous Epith Cells Many per lpf (None-Few) H 11/08/16 20:32 Laboratory Results WBC 6.2 K/mcL (4.3-11.1) D 11/11/16 06:58 RBC 4.09 M/mcL (4.19-5.50) L 11/11/16 06:58 Hgb 12.6 g/dL (12.9-16.9) L 11/11/16 06:58 Hct 35.7 % (37.5-50.1) L 11/11/16 06:58 MCV 87.3 fL (83.0-100.0) 11/11/16 06:58 MCH 30.8 pg (28.0-33.3) 11/11/16 06:58 MCHC 35.3 g/dL (31.6-35.5) 11/11/16 06:58 RDW 12.5 % (11.5-14.5) 11/11/16 06:58 Plt Count 155 K/mcL (140-400) 11/11/16 06:58 MPV 10.6 fL (9.4-12.4) 11/11/16 06:58 Immature Gran % 0.3 % (0-4) 11/11/16 06:58 Seg Neutrophils % 66.0 % 11/11/16 06:58 Lymphocytes % 21.0 % 11/11/16 06:58 Monocytes % 12.2 % 11/11/16 06:58 Eosinophils % 0.2 % 11/11/16 06:58 Basophils % 0.3 % 11/11/16 06:58 Neutrophils # 4.1 K/mcL (1.6-8.9) 11/11/16 06:58 Lymphocytes # 1.3 K/mcL (0.6-4.6) 11/11/16 06:58 Monocytes # 0.8 K/mcL (0.0-1.3) 11/11/16 06:58 Eosinophils # 0.0 K/mcL (0.0-0.6) 11/11/16 06:58 Basophils # 0.0 K/mcL (0.0-0.2) 11/11/16 06:58 Immature Plt Fraction 4.3 % (1.1-6.1) 11/09/16 01:38 PT 10.7 Seconds (9.4-12.1) 11/08/16 19:43 INR 1.0 11/08/16 19:43 APTT 25.7 Seconds (26.0-36.0) L 11/08/16 19:43 VBG pH 7.23 pH Units (7.32-7.42) L 11/09/16 11:06 VBG pCO2 45 mmHg (41-51) 11/09/16 11:06 VBG pO2 24 mmHg (25-40) L 11/09/16 11:06 VBG HCO3 18.8 mEq/L (21-27) L 11/09/16 11:06 Sodium 131 mEq/L (136-145) L 11/11/16 06:58 Potassium 3.7 mEq/L (3.5-4.5) 11/11/16 06:58 Chloride 102 mEq/L (98-109) 11/11/16 06:58 Carbon Dioxide 19 mEq/L (19-29) 11/11/16 06:58 BUN 10 mg/dL (8-26) 11/11/16 06:58 Creatinine 0.77 mg/dL (0.72-1.25) 11/11/16 06:58 Est GFR ( Amer) > 60 (> 60) 11/11/16 06:58 Est GFR (Non-Af Amer) > 60 (> 60) 11/11/16 06:58 BUN/Creatinine Ratio 13 (6-26) 11/11/16 06:58 Glucose 325 mg/dL (70-99) H 11/11/16 06:58 POC Glucose 180 (58-89) H 11/11/16 11:26 Est Mean Plasma Glucose 192 mg/dl 11/09/16 01:38 Hemoglobin A1c 8.3 % (-5.6) H 11/09/16 01:38 C-Peptide 0.2 ng/mL (0.8-3.5) L 11/08/16 22:58 Serum Osmolality 321 mOsm/kg (280-300) H 11/08/16 22:58 Calculated Osmolality 284 (280-300) 11/11/16 06:58 Lactic Acid 1.2 mmol/L (0.5-2.2) 11/09/16 01:38 Calcium 8.3 mg/dL (8.6-10.8) L 11/11/16 06:58 Phosphorus 2.3 mg/dL (2.3-4.7) D 11/10/16 05:06 Magnesium 1.5 mg/dL (1.6-2.6) L 11/10/16 05:06 Total Bilirubin 0.4 mg/dL (0.2-1.2) 11/09/16 01:38 AST 20 Units/L (5-34) 11/09/16 01:38 ALT 25 Units/L (0-55) 11/09/16 01:38 Alkaline Phosphatase 156 Units/L (38-126) H 11/09/16 01:38 Troponin I 0.01 ng/mL (0-0.03) 11/09/16 11:06 Serum Total Protein 5.3 g/dL (6.0-8.3) L D 11/09/16 01:38 Albumin 3.4 g/dL (3.5-5.0) L D 11/09/16 01:38 Globulin 1.9 g/dL (2.4-3.5) L 11/09/16 01:38 Albumin/Globulin Ratio 1.8 (1.1-2.2) 11/09/16 01:38 Triglycerides 95 mg/dL (< 150) 11/09/16 01:38 Cholesterol 76 mg/dL (< 200) 11/09/16 01:38 LDL Cholesterol, Calc 35 mg/dL (0-99) 11/09/16 01:38 VLDL Cholesterol, Calc 19 mg/dL (< 31) 11/09/16 01:38 HDL Cholesterol 22 mg/dL (40-59) L 11/09/16 01:38 Cholesterol/HDL Ratio 3.5 (0-4.9) 11/09/16 01:38 Amylase 15 Units/L (25-125) L 11/09/16 01:38 Lipase 25 Units/L (8-78) 11/08/16 19:43 Beta-Hydroxybutyric Acd > 2.00 mmol/L (0.02-0.27) H 11/09/16 01:38 TSH 0.372 mcIU/mL (0.350-4.840) 11/08/16 22:58 Free T4 1.03 ng/dl (0.70-1.48) 11/09/16 01:38 Free T3 1.21 pg/mL (1.71-3.71) L 11/09/16 01:38 Urine Color Yellow (Yellow) 11/08/16 20:32 Urine Clarity Clear (Clear) 11/08/16 20:32 Urine pH 5.5 pH Units (5.0-8.0) 11/08/16 20:32 Ur Specific [place] 1.030 (1.010-1.025) H 11/08/16 20:32 Urine Protein 30 mg/dL (Neg-Trace) H 11/08/16 20:32 Urine Glucose (UA) >=1000 mg/dL (Normal) H 11/08/16 20:32 Urine Ketones 80 mg/dL (Negative) H 11/08/16 20:32 Urine Blood Small (Negative) H 11/08/16 20:32 Urine Nitrite Negative (Negative) 11/08/16 20:32 Urine Bilirubin Negative (Negative) 11/08/16 20:32 Urine Urobilinogen Normal mg/dL (Normal) 11/08/16 20:32 Ur Leukocyte Esterase Negative (Negative) 11/08/16 20:32 Urine Microscopic RBC 0-3 per hpf (0-3) 11/08/16 20:32 Urine Microscopic WBC 0-3 per hpf (0-3) 11/08/16 20:32 Ur Squamous Epith Cells Many per lpf (None-Few) H 11/08/16 20:32 Urine Bacteria None Seen per hpf (None-Few) 11/08/16 20:32 Hyaline Casts None Seen per lpf (None-Few) 11/08/16 20:32 Ur Culture Indicated? NO (NO) 11/08/16 20:32 Impressions Chest X-Ray 11/08/16 19:20 IMPRESSION: 1. No focal airspace disease. D/ / Vidal Gonzalez MD / Vidal Gonzalez MD Interpreting Provider: Vidal Gonzalez MD Chest CT 11/09/16 09:45 IMPRESSION: Increased interstitial markings at both lung bases which may be seen with interstitial lung disease or interstitial infiltrate. Stable pulmonary nodules which may represent metastatic disease Stable possible skeletal metastasis in the left 5th rib COPD D/ / Jomar Diana MD / Jomar Diana MD Interpreting Provider: Jomar Diana MD - Attending Attestation My signature below is to certify that this patient is under my care and that I, or the Resident Physician working with me, has had a [id number] encounter with this patient. Plan of care has been reviewed and discussed in detail with the patient. Questions addressed. Advance care directive discussion briefly addressed. The patient does not declare any healthcare restrictions at this time. Outpatient medications schedules will be reviewed and confirmed and facilitated as appropriate. Reconciliation of home treatments including adjustments, substitutions and reintroduction into the treatment regimen as necessary maintenance therapies for chronic pre-existing medical conditions. Smoke cessation counseling briefly addressed. The patient accepts nicotine substitution during this hospitalization. Hospital course will be dependent on clinical findings, treatment response and potential consultative interventions. The patient is at risk for acute clinical decline and morbidity given the presenting chief complaint, findings and associated comorbidities. Condition is serious. Prognosis is guarded. CODE STATUS is full.
[2016-11-09] MEDS ORDERED: Nicotine 14 MG PATCH.TD24 TD PRN (01:33)
[2016-11-09] MEDS ORDERED: Ipratropium/Albuterol Neb 3 ML IH PRN (01:49)
[2016-11-09 01:53] LABS: Basophils % 0.2 %; Hematocrit 39.9 % (37.5-50.1); Hemoglobin 13.5 g/dL (12.9-16.9); Immature Granulocytes % 0.7 % (0-4); Immature Platelets 4.3 % (1.1-6.1); Lymphocytes % 7.9 %; Mean Corpuscular HGB Conc 33.8 g/dL (31.6-35.5); Mean Corpuscular Hemoglobin 30.4 pg (28.0-33.3); Mean Corpuscular Volume 89.9 fL (83.0-100.0); Mean Platelet Volume 9.7 fL (9.4-12.4); Monocytes # 1.3 K/mcL (0.0-1.3); Monocytes % 10.1 %; Neutrophils # 10.2 K/mcL (1.6-8.9); Platelet Count 226 K/mcL (140-400); Red Blood Count 4.44 M/mcL (4.19-5.50); Red Cell Distribution Width 12.2 % (11.5-14.5); Segmented Neutrophils % 81.1 %
[2016-11-09 01:55] LABS: VBG HCO3 15.3 mEq/L (21-27)
[2016-11-09 02:01] LABS: VBG PH 7.17 pH Units (7.32-7.42)
[2016-11-09 02:06] LABS: Beta-Hydroxybutyric Acid > 2.00 mmol/L (0.02-0.27)
[2016-11-09 02:08] LABS: Hemoglobin A1C 8.3 %
[2016-11-09 02:13] LABS: Alanine Aminotransferase 25 Units/L (0-55); Albumin/Globulin Ratio 1.8 (1.1-2.2); Alkaline Phosphatase 156 Units/L (38-126); Aspartate Amino Transferase 20 Units/L (5-34); BUN/Creatinine Ratio 18 (6-26); BUN/Creatinine Ratio 19 (6-26); Bilirubin,Total 0.4 mg/dL (0.2-1.2); Blood Urea Nitrogen 25 mg/dL (8-26); Blood Urea Nitrogen 26 mg/dL (8-26); Calcium 8.4 mg/dL (8.6-10.8); Calcium 8.5 mg/dL (8.6-10.8); Carbon Dioxide 14 mEq/L (19-29); Chloride 104 mEq/L (98-109); Chloride 105 mEq/L (98-109); Chol/HDL Ratio 3.5 (0-4.9); Globulin 1.9 g/dL (2.4-3.5); Glucose 394 mg/dL (70-99); Glucose 396 mg/dL (70-99); HDL Cholesterol 22 mg/dL (40-59); LDL Cholesterol,Calculated 35 mg/dL (0-99); Osmolality,Calculated 291 (280-300); Osmolality,Calculated 293 (280-300); Potassium 4.2 mEq/L (3.5-4.5); Potassium 4.3 mEq/L (3.5-4.5); Sodium 130 mEq/L (136-145); Sodium 131 mEq/L (136-145); Triglycerides 95 mg/dL (< 150); eGFR For African Americans 59 (> 60); eGFR For African Americans > 60 (> 60); eGFR For Non-African Americans 49 (> 60); eGFR For Non-African Americans 52 (> 60)
[2016-11-09 02:15] LABS: Magnesium 1.9 mg/dL (1.6-2.6); Phosphorous 2.7 mg/dL (2.3-4.7)
[2016-11-09 02:21] LABS: Albumin 3.4 g/dL (3.5-5.0); Cholesterol 76 mg/dL (< 200); Total Protein 5.3 g/dL (6.0-8.3)
[2016-11-09 02:29] LABS: Triiodothyronine (T3) Free 1.21 pg/mL (1.71-3.71)
[2016-11-09] MEDS: Ipratropium/Albuterol Neb 3 ML IH SCH ×4 (04:26→23:06)
[2016-11-09] MEDS: D5% in 0.45% NACL w KCl 20 MEQ/1,000 ML MLS IVC PRN ×2 (04:50→10:10)
[2016-11-09] MEDS: *HR* Heparin 5,000 UNIT/ML VIAL SQ SCH ×2 (06:39→17:04)
[2016-11-09 06:47] LABS: VBG HCO3 17.4 mEq/L (21-27); VBG PH 7.27 pH Units (7.32-7.42)
[2016-11-09 07:02] LABS: BUN/Creatinine Ratio 19 (6-26); Blood Urea Nitrogen 21 mg/dL (8-26); Calcium 8.1 mg/dL (8.6-10.8); Carbon Dioxide 16 mEq/L (19-29); Chloride 111 mEq/L (98-109); Glucose 240 mg/dL (70-99); Magnesium 1.6 mg/dL (1.6-2.6); Osmolality,Calculated 287 (280-300); Potassium 3.7 mEq/L (3.5-4.5); Sodium 133 mEq/L (136-145); eGFR For African Americans > 60 (> 60); eGFR For Non-African Americans > 60 (> 60)
[2016-11-09 07:05] LABS: Phosphorous 1.1 mg/dL (2.3-4.7)
[2016-11-09] MEDS: Insulin Human Regular 100 UNIT in 0.9 % Sodium Chloride 100 ML IVC SCH ×2 (07:52→12:34)
[2016-11-09] MEDS: FLUoxetine 20 MG CAPSULE PO SCH (08:01)
[2016-11-09] MEDS: Isosorbide MONOnitrate (24 HR) 30 MG TAB.ER.24H PO SCH (08:02)
[2016-11-09] MEDS: Famotidine 20 MG TABLET PO SCH ×2 (08:02→21:36)
[2016-11-09] MEDS: MethylPREDNISolone 40 MG/ML VIAL IVP SCH (08:03)
[2016-11-09] MEDS: Megestrol Acetate 400 MG/10 ML UDC PO SCH ×2 (08:08→21:35)
--- NOTE | 2016-11-09 11:06 | Internal Med Progress Note ---
Date of Encounter: 11/09/16 Time of Encounter: 09:50 - Assessment and plan (1) DKA (diabetic ketoacidoses) Current Visit: Yes Status: Acute Assessment and plan: Improving. Continue IV hydration and insulin. Follow BMP. High risk for complications Qualifiers: Diabetes mellitus type: type 2 Diabetes mellitus complication detail: without coma Qualified Code(s): E13.10 - Other specified diabetes mellitus with ketoacidosis without coma (2) Chest pain Current Visit: Yes Status: Acute Assessment and plan: Intermittent. Improved. Troponins are negative. Qualifiers: Chest pain type: other chest pain Qualified Code(s): R07.89 - Other chest pain; R07.8 - Other chest pain (3) DVT prophylaxis Current Visit: Yes Status: Acute (4) Diabetes mellitus, new onset Current Visit: Yes Status: Acute Assessment and plan: Diabetes education. Will start diabetic diet once DKA resolves. (5) Hypertension Current Visit: Yes Status: Acute Assessment and plan: Controlled Qualifiers: Hypertension type: essential hypertension Qualified Code(s): I10 - Essential (primary) hypertension (6) CAD (coronary artery disease) Current Visit: Yes Status: Chronic Assessment and plan: Continue Plavix, statin and beta debbie. Qualifiers: Coronary Disease-Associated Artery/Lesion type: [place] artery [place] vs. transplanted heart: unspecified whether [place] or transplanted heart Associated angina: with unspecified angina Qualified Code(s): I25.119 - Atherosclerotic heart disease of [place] coronary artery with unspecified angina pectoris - Subjective Interval history: Patient is feeling better today. Has been having cough which is chronic. Denies any abdominal pain. No fevers or chills reported overnight. - Constitutional Vitals: Temp Pulse Resp BP Pulse Ox 97.5 F L 68 18 115/49 98 11/09/16 07:50 11/09/16 07:50 11/09/16 07:50 11/09/16 07:50 11/09/16 07:50 General appearance: Present: cooperative, A&O X 3, pleasant, no acute distress, answers questions appropriately - Neck Neck exam general surgery: Present: supple, trachea midline. Absent: lymphadenopathy - Respiratory Respiratory exam: Present: CTAB. Absent: accessory muscle use, rales, rhonchi, wheezes - Cardiovascular Cardiovascular exam: Present: RRR, +S1, +S2. Absent: diastolic murmur, gallop, rubs, systolic murmur - GI/Abdominal GI/Abdominal exam: Present: normal bowel sounds, soft, no peritoneal signs. Absent: distended, tenderness - Neurological Exam Neurological exam: Present: alert, oriented X3, no focal deficits. Absent: facial droop, speech deficit Internal Medicine: Result - Labs CBC & Chem 7: 11/09/16 01:38 11/09/16 06:06 Labs: Short CBC 11/09/16 Range/Units 01:38 WBC 12.6 H (4.3-11.1) K/mcL Hgb 13.5 D (12.9-16.9) g/dL Hct 39.9 (37.5-50.1) % Plt Count 226 (140-400) K/mcL Neutrophils # 10.2 H (1.6-8.9) K/mcL BMP 11/09/16 11/09/16 11/09/16 01:38 01:38 06:06 Sodium 131 L 130 L 133 L Potassium 4.3 4.2 3.7 Chloride 105 104 111 H Carbon Dioxide 14 L 14 L 16 L BUN 26 25 21 Creatinine 1.41 H 1.32 H 1.09 Glucose 396 H 394 H 240 H Calcium 8.5 L 8.4 L 8.1 L Cardiac Enzymes 11/09/16 Range/Units 01:38 Troponin I 0.01 (0-0.03) ng/mL Liver Function 11/09/16 Range/Units 01:38 Total Bilirubin 0.4 (0.2-1.2) mg/dL AST 20 (5-34) Units/L ALT 25 (0-55) Units/L Alkaline Phosphatase 156 H (38-126) Units/L Albumin 3.4 L D (3.5-5.0) g/dL - ABG Interpretation ABG results: PT/INR, D-dimer PT 10.7 Seconds (9.4-12.1) 11/08/16 19:43 - Impressions Impressions Chest CT 11/09/16 09:45 IMPRESSION: Increased interstitial markings at both lung bases which may be seen with interstitial lung disease or interstitial infiltrate. Stable pulmonary nodules which may represent metastatic disease Stable possible skeletal metastasis in the left 5th rib COPD D/ / Jomar Diana MD / Jomar Diana MD Interpreting Provider: Jomar Diana MD - VTE Documentation of Mechanical Device: Intermittent pneumatic compression device Consult Discharge Plan - Plan Referrals: Elmo Arriaga Jr, MD [Primary Care Provider] - Michaela Ruiz CNP [Advanced Practice Nurse] - 11/13/16 9:40 am - Attending Attestation This document has been at least partially created by [employer] recognition technology by Dr. Wooten. Errors in grammar, wording or other phrases may exist. If errors are found after the documentation is signed, they will be addressed individually in the addendum section of this document when appropriate.
[2016-11-09 11:22] LABS: VBG HCO3 18.8 mEq/L (21-27); VBG PH 7.23 pH Units (7.32-7.42)
[2016-11-09 11:33] LABS: BUN/Creatinine Ratio 19 (6-26); Blood Urea Nitrogen 17 mg/dL (8-26); Calcium 8.6 mg/dL (8.6-10.8); Carbon Dioxide 17 mEq/L (19-29); Chloride 111 mEq/L (98-109); Glucose 89 mg/dL (70-99); Magnesium 1.4 mg/dL (1.6-2.6); Osmolality,Calculated 277 (280-300); Potassium 3.4 mEq/L (3.5-4.5); Sodium 133 mEq/L (136-145); eGFR For African Americans > 60 (> 60); eGFR For Non-African Americans > 60 (> 60)
[2016-11-09 11:39] LABS: Phosphorous 0.7 mg/dL (2.3-4.7)
[2016-11-09] MEDS ORDERED: D5% in Water 1,000 ML IV PRN (12:15)
[2016-11-09] MEDS ORDERED: Dextrose Gel 15 GM PO PRN ×2 (12:15)
[2016-11-09] MEDS ORDERED: Insulin DETEMIR 100 UNIT/ML X5UNITS SQ SCH (12:30)
[2016-11-09] MEDS: 0.45 % Sodium Chloride w/KCl 20 MEQ/1,000 ML MLS IVC SCH ×2 (12:53→21:39)
--- NOTE | 2016-11-09 14:57 | Electrocardiograph Report ---
[place] [id number] Test Date: 2016-11-08 Pat Name: José Miguel Dubon Department: 103 Room: 2N13 Gender: M A P Supervisor: : [id number] Requested By: Primo Chan Order Number: [id number] Reading MD: Yamilex Bazan Measurements Intervals [place] Rate: 89 P: 75 LA: 179 QRS: 105 QRSD: 101 T: 60 QT: 355 QTc: 402 Interpretive Statements SINUS RHYTHM PATTERN CONSISTENT WITH PULMONARY DISEASE Electronically Signed On 11-09-2016 14:55:19 EST by Yamilex Bazan
[2016-11-09 15:57] LABS: BUN/Creatinine Ratio 16 (6-26); Blood Urea Nitrogen 15 mg/dL (8-26); Calcium 8.7 mg/dL (8.6-10.8); Carbon Dioxide 17 mEq/L (19-29); Chloride 109 mEq/L (98-109); Glucose 187 mg/dL (70-99); Osmolality,Calculated 282 (280-300); Potassium 4.1 mEq/L (3.5-4.5); Sodium 133 mEq/L (136-145); eGFR For African Americans > 60 (> 60); eGFR For Non-African Americans > 60 (> 60)
[2016-11-09] MEDS ORDERED: Insulin LISPRO 300 UNITS/3 ML VIAL SQ SCH ×2 (16:30→21:00)
[2016-11-10] MEDS: Ipratropium/Albuterol Neb 3 ML IH SCH ×4 (04:30→22:03)
[2016-11-10 05:52] LABS: BUN/Creatinine Ratio 13 (6-26); Blood Urea Nitrogen 12 mg/dL (8-26); Calcium 8.5 mg/dL (8.6-10.8); Carbon Dioxide 13 mEq/L (19-29); Chloride 105 mEq/L (98-109); Glucose 290 mg/dL (70-99); Magnesium 1.5 mg/dL (1.6-2.6); Osmolality,Calculated 278 (280-300); Potassium 4.5 mEq/L (3.5-4.5); Sodium 129 mEq/L (136-145); eGFR For African Americans > 60 (> 60); eGFR For Non-African Americans > 60 (> 60)
[2016-11-10 06:02] LABS: Phosphorous 2.3 mg/dL (2.3-4.7)
[2016-11-10] MEDS: *HR* Heparin 5,000 UNIT/ML VIAL SQ SCH ×2 (06:48→17:30)
[2016-11-10] MEDS ORDERED: Insulin LISPRO 300 UNITS/3 ML VIAL SQ SCH ×2 (07:47)
[2016-11-10] MEDS: Megestrol Acetate 400 MG/10 ML UDC PO SCH ×2 (08:03→21:43)
[2016-11-10] MEDS: Famotidine 20 MG TABLET PO SCH ×2 (08:04→21:45)
[2016-11-10] MEDS: FLUoxetine 20 MG CAPSULE PO SCH (08:05)
[2016-11-10] MEDS: Isosorbide MONOnitrate (24 HR) 30 MG TAB.ER.24H PO SCH (08:06)
[2016-11-10] MEDS: MethylPREDNISolone 40 MG/ML VIAL IVP SCH (08:08)
[2016-11-10] MEDS: Insulin DETEMIR 100 UNIT/ML X5UNITS SQ SCH ×2 (08:15→21:43)
[2016-11-10] MEDS: Insulin LISPRO 300 UNITS/3 ML VIAL SQ SCH ×6 (08:15→17:31)
[2016-11-10] MEDS ORDERED: *HR* Labetalol 20 MG/4 ML SYRINGE IVP PRN (09:06)
--- NOTE | 2016-11-10 14:08 | Internal Med Progress Note ---
Date of Encounter: 11/10/16 Time of Encounter: 14:05 - Assessment and plan (1) DKA (diabetic ketoacidoses) Current Visit: Yes Status: Acute Assessment and plan: Blood sugars are better controlled. Patient's bicarbonate is low today. We will gently hydrate. If persistently low, patient will need oral bicarbonate supplements. Qualifiers: Diabetes mellitus type: type 2 Diabetes mellitus complication detail: without coma Qualified Code(s): E13.10 - Other specified diabetes mellitus with ketoacidosis without coma (2) Chest pain Current Visit: Yes Status: Acute Assessment and plan: Related to cough. This is improved. Qualifiers: Chest pain type: other chest pain Qualified Code(s): R07.89 - Other chest pain; R07.8 - Other chest pain (3) Diabetes mellitus, new onset Current Visit: Yes Status: Acute Assessment and plan: Remains uncontrolled. Blood sugars were well controlled yesterday but since last night there have been severely elevated. Increased insulin regimen. Likely due to IV steroid use. Stopped IV steroids. We will continue to monitor blood sugars closely. Will start metformin. Moderate risk for complications due to uncontrolled diabetes. (4) Hypertension Current Visit: Yes Status: Acute Assessment and plan: This is well controlled. Qualifiers: Hypertension type: essential hypertension Qualified Code(s): I10 - Essential (primary) hypertension (5) CAD (coronary artery disease) Current Visit: Yes Status: Chronic Assessment and plan: Continue Plavix, metoprolol. Qualifiers: Coronary Disease-Associated Artery/Lesion type: [place] artery [place] vs. transplanted heart: unspecified whether [place] or transplanted heart Associated angina: with unspecified angina Qualified Code(s): I25.119 - Atherosclerotic heart disease of [place] coronary artery with unspecified angina pectoris (6) DVT prophylaxis Current Visit: Yes Status: Acute Assessment and plan: On subcutaneous heparin - Subjective Interval history: Patient continues to do well. Tolerating diet well. Denies any headaches. No nausea or vomiting. - Constitutional Vitals: Temp Pulse Resp BP Pulse Ox 97.4 F L 78 18 121/61 98 11/10/16 11:42 11/10/16 12:00 11/10/16 11:42 11/10/16 11:42 11/10/16 11:42 General appearance: Present: cooperative, A&O X 3, pleasant, no acute distress, answers questions appropriately - Respiratory Respiratory exam: Present: CTAB. Absent: accessory muscle use, rales, rhonchi, wheezes - Cardiovascular Cardiovascular exam: Present: RRR, +S1, +S2. Absent: diastolic murmur, gallop, rubs, systolic murmur - GI/Abdominal GI/Abdominal exam: Present: normal bowel sounds, soft, no peritoneal signs. Absent: distended, tenderness - Extremities Exam Extremities exam: Present: warm, radial pulses palpable and symetrical. Absent : calf tenderness, cyanotic, pedal edema - Neurological Exam Neurological exam: Present: alert, oriented X3, no focal deficits. Absent: pronater drift, facial droop, speech deficit Internal Medicine: Result - Labs CBC & Chem 7: 11/09/16 01:38 11/10/16 05:06 Labs: BMP 11/09/16 11/10/16 15:34 05:06 Sodium 133 L 129 L Potassium 4.1 4.5 Chloride 109 105 Carbon Dioxide 17 L 13 L BUN 15 12 Creatinine 0.94 0.91 Glucose 187 H 290 H Calcium 8.7 8.5 L - ABG Interpretation ABG results: PT/INR, D-dimer PT 10.7 Seconds (9.4-12.1) 11/08/16 19:43 - VTE Documentation of Mechanical Device: Intermittent pneumatic compression device Consult Discharge Plan - Plan Referrals: Elmo Arriaga Jr, MD [Primary Care Provider] - Michaela Ruiz CNP [Advanced Practice Nurse] - 11/13/16 9:40 am - Attending Attestation This document has been at least partially created by [employer] voice recognition technology by Dr. Wooten. Errors in grammar, wording or other phrases may exist. If errors are found after the documentation is signed, they will be addressed individually in the addendum section of this document when appropriate.
[2016-11-10] MEDS: 0.9 % Sodium Chloride 1,000 ML IVC SCH (14:36)
[2016-11-10] MEDS: *HR* Metformin 500 MG TABLET PO SCH (17:27)
[2016-11-11] MEDS: 0.9 % Sodium Chloride 1,000 ML IVC SCH (04:00)
[2016-11-11] MEDS: Ipratropium/Albuterol Neb 3 ML IH SCH ×2 (04:57→10:54)
[2016-11-11] MEDS: *HR* Heparin 5,000 UNIT/ML VIAL SQ SCH (06:22)
[2016-11-11 07:29] LABS: Basophils % 0.3 %; Eosinophils % 0.2 %; Hematocrit 35.7 % (37.5-50.1); Hemoglobin 12.6 g/dL (12.9-16.9); Immature Granulocytes % 0.3 % (0-4); Lymphocytes # 1.3 K/mcL (0.6-4.6); Mean Corpuscular HGB Conc 35.3 g/dL (31.6-35.5); Mean Corpuscular Hemoglobin 30.8 pg (28.0-33.3); Mean Corpuscular Volume 87.3 fL (83.0-100.0); Mean Platelet Volume 10.6 fL (9.4-12.4); Monocytes # 0.8 K/mcL (0.0-1.3); Monocytes % 12.2 %; Neutrophils # 4.1 K/mcL (1.6-8.9); Platelet Count 155 K/mcL (140-400); Red Blood Count 4.09 M/mcL (4.19-5.50); Red Cell Distribution Width 12.5 % (11.5-14.5)
[2016-11-11 07:43] LABS: BUN/Creatinine Ratio 13 (6-26); Blood Urea Nitrogen 10 mg/dL (8-26); Calcium 8.3 mg/dL (8.6-10.8); Carbon Dioxide 19 mEq/L (19-29); Chloride 102 mEq/L (98-109); Glucose 325 mg/dL (70-99); Osmolality,Calculated 284 (280-300); Potassium 3.7 mEq/L (3.5-4.5); Sodium 131 mEq/L (136-145); eGFR For African Americans > 60 (> 60); eGFR For Non-African Americans > 60 (> 60)
[2016-11-11] MEDS: Famotidine 20 MG TABLET PO SCH (07:58)
[2016-11-11] MEDS: *HR* Metformin 500 MG TABLET PO SCH (07:58)
[2016-11-11] MEDS: Isosorbide MONOnitrate (24 HR) 30 MG TAB.ER.24H PO SCH (07:59)
[2016-11-11] MEDS: FLUoxetine 20 MG CAPSULE PO SCH (07:59)
[2016-11-11] MEDS: Megestrol Acetate 400 MG/10 ML UDC PO SCH (08:00)
[2016-11-11] MEDS: Insulin LISPRO 300 UNITS/3 ML VIAL SQ SCH ×4 (08:01→12:09)
[2016-11-11] MEDS: Insulin DETEMIR 100 UNIT/ML X5UNITS SQ SCH (08:01)
[2016-11-11] MEDS ORDERED: Insulin DETEMIR 100 UNIT/ML X5UNITS SQ ONE (08:20)
[2016-11-11 11:27] VITALS: BP 128/92
--- NOTE | 2016-11-11 11:45 | Discharge Summary ---
Date of Encounter: 11/11/16 Time of Encounter: 11:38 - Discharge Diagnosis (1) DKA (diabetic ketoacidoses) Priority: Primary Status: Acute Qualifiers: Diabetes mellitus type: type 2 Diabetes mellitus complication detail: without coma Qualified Code(s): E13.10 - Other specified diabetes mellitus with ketoacidosis without coma (2) Chest pain Priority: Secondary Status: Acute Qualifiers: Chest pain type: other chest pain Qualified Code(s): R07.89 - Other chest pain; R07.8 - Other chest pain (3) Diabetes mellitus, new onset Priority: Secondary Status: Acute (4) Hypertension Priority: Secondary Status: Acute Qualifiers: Hypertension type: essential hypertension Qualified Code(s): I10 - Essential (primary) hypertension (5) CAD (coronary artery disease) Priority: Secondary Status: Chronic Qualifiers: Coronary Disease-Associated Artery/Lesion type: [place] artery [place] vs. transplanted heart: unspecified whether [place] or transplanted heart Associated angina: with unspecified angina Qualified Code(s): I25.119 - Atherosclerotic heart disease of [place] coronary artery with unspecified angina pectoris (6) DVT prophylaxis Priority: Secondary Status: Acute - Discharge Medications Prescriptions: Blood Sugar Diagnostic [Glucose Test Strip] 1 each ACHS #180 strip Blood-Glucose Meter, Drum-Type [Accu-Chek] 1 each ACHS #1 kit Insulin ASPART [Novolog Flexpen] 5 unit SQ TIDAC #1 insuln.pen Insulin DETEMIR [Levemir Flextouch] 20 unit SQ BID #1 insuln.pen Lancets [Accu-Chek Safe-T-Pro] 1 each ACHS #180 each Metformin [Glucophage] 500 mg PO BIDWM #60 tablet Home Medications: Budesonide/Formoterol 160/4.5 [Symbicort] 1 puff IH BIDR #1 hfa.aer.ad 07/23/15 [Rx] Clopidogrel [Plavix] 75 mg PO DAILY 07/23/15 [History] Cyclobenzaprine [Flexeril] 10 mg PO HS 07/23/15 [History] Metoprolol [Lopressor] 50 mg PO BID 07/23/15 [History] Simvastatin [Zocor] 40 mg PO HS 07/23/15 [History] Lidocaine/Prilocaine CREAM [Emla] 1 appl TP AD PRN #1 tube 04/12/16 [Rx] Prochlorperazine Maleate [Compazine] 10 mg PO Q6HR PRN #60 tablet 04/12/16 [Rx] Magic Mouthwash 5 ml PO Q4H PRN #240 ml 05/14/16 [Rx] Cetirizine HCl [Zyrtec] 10 mg PO DAILY PRN 06/14/16 [History] Cyanocobalamin (Vitamin B-12) [Vitamin B12] 1,000 mcg PO DAILY 06/14/16 [History ] FLUoxetine HCl [Prozac] 20 mg PO DAILY 09/17/16 [History] Megestrol Acetate [Megace] 10 ml PO BID #400 mls 11/07/16 [Rx] Albuterol Sulfate [Ventolin Hfa] 2 puff IH Q4H PRN 11/08/16 [History] Isosorbide MONOnitrate (24 HR) [Imdur] 30 mg PO DAILY 11/08/16 [History] Blood Sugar Diagnostic [Glucose Test Strip] 1 each [facility] #180 strip 11/11/16 [ Rx] Blood-Glucose Meter, Drum-Type [Accu-Chek] 1 each ACHS #1 kit 11/11/16 [Rx] Insulin ASPART [Novolog Flexpen] 5 unit SQ TIDAC #1 insuln.pen 11/11/16 [Rx] Insulin DETEMIR [Levemir Flextouch] 20 unit SQ BID #1 insuln.pen 11/11/16 [Rx] Lancets [Accu-Chek Safe-T-Pro] 1 each ACHS #180 each 11/11/16 [Rx] Metformin [Glucophage] 500 mg PO BIDWM #60 tablet 11/11/16 [Rx] Allergies/Adverse Reactions: Allergies shellfish derived Allergy (Verified 10/05/16 13:36) Rash tree and shrub pollen Allergy (Verified 10/05/16 13:36) Rash Procedures/tests Complete & Pending: Procedures Performed prior 72 hours Category Date Time Status CT chest wo con [CT] Routine Cat Scan 11/09/16 09:45 Completed Date of admission: 11/08/16 23:11 Primary care physician: Elmo Arriaga Jr, MD Consults: 11/09/16 06:00 Consult to Telemarketer Supervisor [CONS] Routine Reason for SW Consult: newly diagnosed diabetic. may need assistance at home. 11/09/16 10:25 Consult to Upholsterer Inside [CONS] Routine Comment: Discharging clinician: Meagan Wooten Anticipated date of discharge: 11/11/16 - Patient Status Disposition: Home, Self-Care Condition: Good Functional capacity at discharge: independent ambulation Overall status at discharge: patient is progressing back to baseline - Discharge Instructions Instructions: Diabetes Mellitus Type 2 in Adults (DC) Follow Up With: Michaela Ruiz CNP [Advanced Practice Nurse] - 11/13/16 9:40 am Elmo Arriaga Jr, MD [Primary Care Provider] - - Diet and Activity Activity: resume usual activities as tolerated Diet: diabetic diet, low fat, low cholesterol, low salt diet Hospital course: Mr. Dubon is a 76 year old male with history of lymphoid epithelial carcinoma , squamous cell carcinoma., COPD, [place] and CAD was admitted here with diabetic ketoacidosis. No previous diagnosis of diabetes. He was started on treatment for this with intravenous insulin and IV fluids and his acidosis was corrected. Since then he has been tolerating more alert and has been on a diabetic diet. He has been receiving subcutaneous insulin. His blood sugars have been difficult to control but are not much better. At this time, his going to be discharged home on Levemir 20 units twice daily and NovoLog 5 units 3 times a day before meals. His hemoglobin A1c level was 8.3. He did receive intravenous Solu-Medrol during his stay here initially but this has now been stopped. He does not require a steroid taper. He is stable to be discharged home and will follow up with his primary care provider for further management of diabetes. He received diabetes education here and will be on a diabetic diet. He did have some chest pain on presentation but that has improved. A CT scan of the chest was done which showed some increased interstitial markings and stable pulmonary nodules. Patient did not have any signs or symptoms of pneumonia. As such he did not receive any IV antibiotics. He did have leukocytosis on presentation but this has since improved. Most likely this was due to his diabetic ketoacidosis. His blood cultures have been negative here. - Time Spent with Patient Total time spent providing and/or coordinating discharge services: - Constitutional Vitals: Temp Pulse Resp BP Pulse Ox 97.5 F L 71 18 128/92 97 11/11/16 11:24 11/11/16 11:24 11/11/16 11:24 11/11/16 11:24 11/11/16 11:24 General appearance: Present: cooperative, A&O X 3, pleasant, no acute distress, answers questions appropriately - Respiratory Respiratory exam: Present: CTAB. Absent: accessory muscle use, rales, rhonchi, wheezes - Cardiovascular Cardiovascular exam: Present: RRR, +S1, +S2. Absent: diastolic murmur, gallop, rubs, systolic murmur - GI/Abdominal GI/Abdominal exam: Present: normal bowel sounds, soft, no peritoneal signs. Absent: distended, tenderness - Extremities Exam Extremities exam: Present: warm, radial pulses palpable and symetrical. Absent : calf tenderness, cyanotic, pedal edema - VTE Documentation of Mechanical Device: Intermittent pneumatic compression device - Attending Attestation This document has been at least partially created by [employer] recognition technology by Dr. Wooten. Errors in grammar, wording or other phrases may exist. If errors are found after the documentation is signed, they will be addressed individually in the addendum section of this document when appropriate.
[2016-11-11] MEDS ORDERED: Insulin DETEMIR 100 UNIT/ML X5UNITS SQ SCH (21:00)
== END 2016-11-11 15:22 | disposition home or self-care (01) | DRG 638 ==
LOC: EMEROO 19:07 → 2NNU 19:07 → SUATTDRO 23:11
PROVIDERS: ADMIT Internal Medicine; ATTEND Internal Medicine

== ENCOUNTER 2016-12-19 12:20 | Observation (INO) ==
--- NOTE | 2016-12-19 12:37 | Emergency Department Note ---
Disposition Clinical Impression: Frail elderly, Head injury, Syncope and collapse, CAD (coronary artery disease) , Abrasion, Diabetes, Lactic acidosis, Neck injury Disposition: Admitted As Inpatient Referrals: Elmo Arriaga Jr, MD [Primary Care Provider] - Forms: ED Satisfaction Letter General Adult HPI - General Chief complaint: ED Syncope Stated complaint: Syncopal episode/ Time Seen by Provider: 12/19/16 12:27 Source: family Limitations: no limitations - History of Present Illness HPI Narrative: 76-year-old male comes in by EMS with concerns for passing out. The patient was sitting down. He got up to answer the phone. Once he got the phone he reports he passed out. There are concerns that the patient hit his head and hurt his neck. The patient damaged the wall and there is "a hole" in the wall where he hit his head. The patient reports he was in his usual state of health prior to the event was feeling well, he did note a high blood sugar but did not seem to have symptoms at that time. He denies chest pain before after the event no abdominal pain vomiting or diarrhea. No shortness of breath or coughing of blood no leg swelling or pain no upper or lower extremity pain described. No back pain. He does report neck pain associated with movement and head pain. The patient takes Plavix but no other blood thinning medication. He reports he was recently diagnosed with diabetes and takes oral and injectable medication. He reports his sugar was somewhat high this morning and the 470 range. There is no history of fever or cough. No leg swelling or pain. Patient is not sure exactly when his last tetanus shot was. Onset (ago): Just [employer] Pain Scale: 4 - Related Data Home Medications Medication Instructions Recorded Confirmed Clopidogrel [Plavix] 75 mg PO DAILY 07/23/15 12/19/16 Cyclobenzaprine [Flexeril] 10 mg PO HS 07/23/15 12/19/16 Metoprolol [Lopressor] 50 mg PO BID 07/23/15 12/19/16 Simvastatin [Zocor] 40 mg PO HS 07/23/15 12/19/16 Cetirizine HCl [Zyrtec] 10 mg PO DAILY PRN 06/14/16 12/19/16 Cyanocobalamin (Vitamin B-12) 1,000 mcg PO DAILY 06/14/16 12/19/16 [Vitamin B12] FLUoxetine HCl [Prozac] 20 mg PO DAILY 09/17/16 12/19/16 Albuterol Sulfate [Ventolin Hfa] 2 puff IH Q4H PRN 11/08/16 12/19/16 Isosorbide MONOnitrate (24 HR) 30 mg PO DAILY 11/08/16 12/19/16 [Imdur] Insulin ASPART [Novolog Flexpen] 8 - 12 unit SQ TIDAC 12/17/16 12/19/16 Previous Rx's Medication Instructions Recorded Budesonide/Formoterol 160/4.5 1 puff IH BIDR #1 hfa.aer.ad 07/23/15 [Symbicort] Lidocaine/Prilocaine CREAM [Emla] 1 appl TP AD PRN #1 tube 04/12/16 Prochlorperazine Maleate 10 mg PO Q6HR PRN #60 tablet 04/12/16 [Compazine] Magic Mouthwash 5 ml PO Q4H PRN #240 ml 05/14/16 Insulin DETEMIR [Levemir Flextouch] 20 unit SQ BID #1 insuln.pen 11/11/16 Metformin [Glucophage] 500 mg PO BIDWM #60 tablet 11/11/16 Allergies Allergy/AdvReac Type Severity Reaction Status Date / Time shellfish derived Allergy Rash Verified 12/17/16 13:29 tree and shrub pollen Allergy Rash Verified 12/17/16 13:29 All systems ED: reviewed and negative except as stated. Past Medical History - Past Medical History Medical history: Reports: cancer, diabetes, hypertension, myocardial infarction Surgical history: Reports: cancer surgery, coronary bypass (CABG), other Psychiatric history: Reports: anxiety, depression - Social History Smoking Status: Current every day smoker Smokeless Tobacco Status: No Alcohol use: Reports: rarely Drug use: Reports: none Physical Exam - General Limitations: no limitations General appearance: alert, in no apparent distress - Head Head exam: other (There are abrasions on the right temporal right upper eyelid and forehead area. No depressed skull fracture the head neck and face are otherwise intact without evidence of trauma.) - Eye Eye exam: Present: normal appearance, PERRL, EOMI. Absent: conjunctival injection, miosis, mydriasis - ENT ENT exam: normal exam, normal oropharynx, mucous membranes moist, TM's normal bilaterally, normal external ear exam - Neck Neck exam: Present: normal inspection, full ROM, trachea midline, tenderness - Chest Chest inspection: Present: normal inspection, symmetric chest wall rise. Absent : tenderness - Respiratory Respiratory exam: Present: normal lung sounds bilaterally. Absent: respiratory distress - Cardiovascular Cardiovascular exam: Present: regular rate, normal rhythm, normal heart sounds - Abdominal Exam Abdominal exam: Present: soft, Non-Tender, normal bowel sounds. Absent: tenderness, distention, guarding, rebound, rigidity, trauma, pulsatile mass - Extremities Exam Extremities exam: Present: normal inspection, full ROM, normal capillary refill. Absent: tenderness, pedal edema, joint swelling, calf tenderness - Expanded Lower Extremity Exam Lower leg exam: Absent: Homans' sign Neurovascular/Tendon exam: Absent: motor deficit, sensory deficit, tendon deficit, extremity cold to touch, pallor - Back Exam Back exam: Present: normal inspection, full ROM. Absent: tenderness, CVA tenderness (R), CVA tenderness (L), vertebral tenderness - Neurological Exam Neurological exam: Present: alert, oriented X3, CN II-XII intact. Absent: motor sensory deficit - Psychiatric Psychiatric exam: Present: normal affect, normal mood - Skin Skin exam: Present: warm, dry, intact, normal color. Absent: rash, cyanosis, diaphoresis, erythema, pallor, mottled Course Vital Signs Temperature 97.4 F L 12/19/16 12:28 Pulse Rate 64 12/19/16 12:28 Respiratory Rate 16 12/19/16 12:28 Blood Pressure 123/72 12/19/16 12:28 O2 Sat by Pulse Oximetry 97 12/19/16 12:28 Temperature 97.4 F L 12/19/16 12:28 Pulse Rate 56 12/19/16 14:41 Respiratory Rate 14 12/19/16 14:41 Blood Pressure 131/73 12/19/16 14:41 O2 Sat by Pulse Oximetry 94 L 12/19/16 14:41 Oxygen Delivery Oxygen Delivery Room Air Medical Decision Making - MDM Narrative Medical decision making narrative: The patient's testing shows no evidence of acute intracranial or cervical pathology. The patient describes a syncopal event, the family showed us pictures of the wall of the house where the patient had struck his head. The pictures clearly demonstrate a significant mechanism of injury, the drywall it shattered through out and is shaped the size of a human skull with damage below that as well. The patient does not recall the event. His [place] Coma Scale is 15. The patient is elderly, frail, and on antiplatelet agents, has external evidence of trauma to the head, and had a significant mechanism of injury. Based on his age, comorbidities, antiplatelet medications, and demonstrated physical injury as well as picture evidence of significant wall damage indicating more than a minor head injury, I felt CT scan of the head was certainly indicated. The patient had a syncopal event, he has a history of coronary disease, diabetes, and is frail and elderly at age 76, he has demonstrated injuries, based on multiple comorbidities and significant acute event, I thought the patient would be best served being admitted to the hospital. I discussed case with the hospitalist on-call who is except the patient to his care. - Lab Data Lab results reviewed: Yes I reviewed the patient's lab results. Result diagrams: 12/19/16 12:49 12/19/16 12:49 Lab Results 12/19/16 12/19/16 12/19/16 Range/Units 12:49 12:49 12:49 WBC 12.5 H (4.3-11.1) K/mcL RBC 4.73 (4.19-5.50) M/mcL Hgb 14.5 (12.9-16.9) g/dL Hct 42.9 (37.5-50.1) % MCV 90.7 (83.0-100.0) fL MCH 30.7 (28.0-33.3) pg MCHC 33.8 (31.6-35.5) g/dL RDW 12.7 (11.5-14.5) % Plt Count 323 (140-400) K/mcL MPV 9.5 (9.4-12.4) fL Immature Gran % 1.4 (0-4) % Seg Neutrophils % 76.8 % Lymphocytes % 10.3 % Monocytes % 10.7 % Eosinophils % 0.3 % Basophils % 0.5 % Neutrophils # 9.6 H (1.6-8.9) K/mcL Lymphocytes # 1.3 (0.6-4.6) K/mcL Monocytes # 1.3 (0.0-1.3) K/mcL Eosinophils # 0.0 (0.0-0.6) K/mcL Basophils # 0.1 (0.0-0.2) K/mcL PT 11.4 (9.4-12.1) Seconds INR 1.1 APTT 28.9 (26.0-36.0) Seconds Sodium 131 L (136-145) mEq/L Potassium 4.5 (3.5-4.5) mEq/L Chloride 96 L (98-109) mEq/L Carbon Dioxide 23 (19-29) mEq/L BUN 22 (8-26) mg/dL Creatinine 0.93 (0.72-1.25) mg/dL Est GFR ( Amer) > 60 (> 60) Est GFR (Non-Af Amer) > 60 (> 60) BUN/Creatinine Ratio 24 (6-26) Glucose 236 H (70-99) mg/dL Calculated Osmolality 283 (280-300) Lactic Acid (0.5-2.2) mmol/L Calcium 9.2 (8.6-10.8) mg/dL Total Bilirubin (0.2-1.2) mg/dL Direct Bilirubin (0.0-0.5) mg/dL Indirect Bilirubin (0.0-1.2) mg/dL AST (5-34) Units/L ALT (0-55) Units/L Alkaline Phosphatase (38-126) Units/L Creatine Kinase 138 (30-200) Units/L Troponin I (0-0.03) ng/mL C-Reactive Protein (Less than 5) mg/L Serum Total Protein (6.0-8.3) g/dL Albumin (3.5-5.0) g/dL Globulin (2.4-3.5) g/dL Albumin/Globulin Ratio (1.1-2.2) Urine Color (Yellow) Urine Clarity (Clear) Urine pH (5.0-8.0) pH Units Ur Specific [place] (1.010-1.025) Urine Protein (Neg-Trace) mg/dL Urine Glucose (UA) (Normal) mg/dL Urine Ketones (Negative) mg/dL Urine Blood (Negative) Urine Nitrite (Negative) Urine Bilirubin (Negative) Urine Urobilinogen (Normal) mg/dL Ur Leukocyte Esterase (Negative) 12/19/16 12/19/16 12/19/16 Range/Units 12:49 12:49 12:49 WBC (4.3-11.1) K/mcL RBC (4.19-5.50) M/mcL Hgb (12.9-16.9) g/dL Hct (37.5-50.1) % MCV (83.0-100.0) fL MCH (28.0-33.3) pg MCHC (31.6-35.5) g/dL RDW (11.5-14.5) % Plt Count (140-400) K/mcL MPV (9.4-12.4) fL Immature Gran % (0-4) % Seg Neutrophils % % Lymphocytes % % Monocytes % % Eosinophils % % Basophils % % Neutrophils # (1.6-8.9) K/mcL Lymphocytes # (0.6-4.6) K/mcL Monocytes # (0.0-1.3) K/mcL Eosinophils # (0.0-0.6) K/mcL Basophils # (0.0-0.2) K/mcL PT (9.4-12.1) Seconds INR APTT (26.0-36.0) Seconds Sodium (136-145) mEq/L Potassium (3.5-4.5) mEq/L Chloride (98-109) mEq/L Carbon Dioxide (19-29) mEq/L BUN (8-26) mg/dL Creatinine (0.72-1.25) mg/dL Est GFR ( Amer) (> 60) Est GFR (Non-Af Amer) (> 60) BUN/Creatinine Ratio (6-26) Glucose (70-99) mg/dL Calculated Osmolality (280-300) Lactic Acid 2.5 H (0.5-2.2) mmol/L Calcium (8.6-10.8) mg/dL Total Bilirubin (0.2-1.2) mg/dL Direct Bilirubin (0.0-0.5) mg/dL Indirect Bilirubin (0.0-1.2) mg/dL AST (5-34) Units/L ALT (0-55) Units/L Alkaline Phosphatase (38-126) Units/L Creatine Kinase (30-200) Units/L Troponin I 0.00 (0-0.03) ng/mL C-Reactive Protein 2 (Less than 5) mg/L Serum Total Protein (6.0-8.3) g/dL Albumin (3.5-5.0) g/dL Globulin (2.4-3.5) g/dL Albumin/Globulin Ratio (1.1-2.2) Urine Color (Yellow) Urine Clarity (Clear) Urine pH (5.0-8.0) pH Units Ur Specific [place] (1.010-1.025) Urine Protein (Neg-Trace) mg/dL Urine Glucose (UA) (Normal) mg/dL Urine Ketones (Negative) mg/dL Urine Blood (Negative) Urine Nitrite (Negative) Urine Bilirubin (Negative) Urine Urobilinogen (Normal) mg/dL Ur Leukocyte Esterase (Negative) 12/19/16 12/19/16 Range/Units 12:49 15:42 WBC (4.3-11.1) K/mcL RBC (4.19-5.50) M/mcL Hgb (12.9-16.9) g/dL Hct (37.5-50.1) % MCV (83.0-100.0) fL MCH (28.0-33.3) pg MCHC (31.6-35.5) g/dL RDW (11.5-14.5) % Plt Count (140-400) K/mcL MPV (9.4-12.4) fL Immature Gran % (0-4) % Seg Neutrophils % % Lymphocytes % % Monocytes % % Eosinophils % % Basophils % % Neutrophils # (1.6-8.9) K/mcL Lymphocytes # (0.6-4.6) K/mcL Monocytes # (0.0-1.3) K/mcL Eosinophils # (0.0-0.6) K/mcL Basophils # (0.0-0.2) K/mcL PT (9.4-12.1) Seconds INR APTT (26.0-36.0) Seconds Sodium (136-145) mEq/L Potassium (3.5-4.5) mEq/L Chloride (98-109) mEq/L Carbon Dioxide (19-29) mEq/L BUN (8-26) mg/dL Creatinine (0.72-1.25) mg/dL Est GFR ( Amer) (> 60) Est GFR (Non-Af Amer) (> 60) BUN/Creatinine Ratio (6-26) Glucose (70-99) mg/dL Calculated Osmolality (280-300) Lactic Acid (0.5-2.2) mmol/L Calcium (8.6-10.8) mg/dL Total Bilirubin 1.0 (0.2-1.2) mg/dL Direct Bilirubin 0.4 (0.0-0.5) mg/dL Indirect Bilirubin 0.6 (0.0-1.2) mg/dL AST 24 (5-34) Units/L ALT 27 (0-55) Units/L Alkaline Phosphatase 115 (38-126) Units/L Creatine Kinase (30-200) Units/L Troponin I (0-0.03) ng/mL C-Reactive Protein (Less than 5) mg/L Serum Total Protein 7.0 (6.0-8.3) g/dL Albumin 3.9 (3.5-5.0) g/dL Globulin 3.1 (2.4-3.5) g/dL Albumin/Globulin Ratio 1.3 (1.1-2.2) Urine Color Yellow (Yellow) Urine Clarity Clear (Clear) Urine pH 7.0 (5.0-8.0) pH Units Ur Specific [place] 1.025 (1.010-1.025) Urine Protein Negative (Neg-Trace) mg/dL Urine Glucose (UA) >=1000 H (Normal) mg/dL Urine Ketones 15 H (Negative) mg/dL Urine Blood Negative (Negative) Urine Nitrite Negative (Negative) Urine Bilirubin Negative (Negative) Urine Urobilinogen Normal (Normal) mg/dL Ur Leukocyte Esterase Negative (Negative) - Radiology Data Radiology results reviewed: Yes I reviewed the patient's radiology results.
[2016-12-19] MEDS ORDERED: Tdap (Boostrix) Vaccine 0.5 ML SYRINGE IM ONE (12:51)
[2016-12-19 13:02] LABS: Basophils # 0.1 K/mcL (0.0-0.2); Basophils % 0.5 %; Eosinophils % 0.3 %; Hematocrit 42.9 % (37.5-50.1); Hemoglobin 14.5 g/dL (12.9-16.9); Immature Granulocytes % 1.4 % (0-4); Lymphocytes # 1.3 K/mcL (0.6-4.6); Lymphocytes % 10.3 %; Mean Corpuscular HGB Conc 33.8 g/dL (31.6-35.5); Mean Corpuscular Hemoglobin 30.7 pg (28.0-33.3); Mean Corpuscular Volume 90.7 fL (83.0-100.0); Mean Platelet Volume 9.5 fL (9.4-12.4); Monocytes # 1.3 K/mcL (0.0-1.3); Monocytes % 10.7 %; Neutrophils # 9.6 K/mcL (1.6-8.9); Platelet Count 323 K/mcL (140-400); Red Blood Count 4.73 M/mcL (4.19-5.50); Red Cell Distribution Width 12.7 % (11.5-14.5); Segmented Neutrophils % 76.8 %
[2016-12-19 13:07] LABS: INR 1.1; Prothrombin Time 11.4 Seconds (9.4-12.1)
[2016-12-19 13:10] LABS: Activated Partial Thrombo Time 28.9 Seconds (26.0-36.0)
[2016-12-19 13:25] LABS: Albumin 3.9 g/dL (3.5-5.0); Albumin/Globulin Ratio 1.3 (1.1-2.2); BUN/Creatinine Ratio 24 (6-26); Bilirubin,Direct 0.4 mg/dL (0.0-0.5); Bilirubin,Indirect 0.6 mg/dL (0.0-1.2); Blood Urea Nitrogen 22 mg/dL (8-26); Calcium 9.2 mg/dL (8.6-10.8); Carbon Dioxide 23 mEq/L (19-29); Chloride 96 mEq/L (98-109); Creatine Kinase 138 Units/L (30-200); Globulin 3.1 g/dL (2.4-3.5); Glucose 236 mg/dL (70-99); Osmolality,Calculated 283 (280-300); Potassium 4.5 mEq/L (3.5-4.5); Sodium 131 mEq/L (136-145); eGFR For African Americans > 60 (> 60); eGFR For Non-African Americans > 60 (> 60)
[2016-12-19 15:58] LABS: Bilirubin,Urine Negative (Negative); Blood,Urine Negative (Negative); Clarity,Urine Clear (Clear); Color,Urine Yellow (Yellow); Glucose,Urine (UA) >=1000 mg/dL (Normal); Ketones,Urine 15 mg/dL (Negative); Leukocyte Esterase,Urine Negative (Negative); Nitrite,Urine Negative (Negative); Protein,Urine Negative (Neg-Trace); Specific Gravity,Urine 1.025 (1.010-1.025); Urobilinogen,Urine Normal (Normal)
[2016-12-19] MEDS ORDERED: 0.9 % Sodium Chloride 1,000 ML IVC ONE (16:04)
[2016-12-19] MEDS ORDERED: Naloxone 0.4 MG/ML INJ IVP PRN (20:34)
[2016-12-19] MEDS ORDERED: Ondansetron 4 MG/2 ML VIAL IVP PRN (20:34)
[2016-12-19] MEDS ORDERED: *HR* OxyCODONE Immed Rel 5 MG TABLET PO PRN (20:34)
[2016-12-19] MEDS ORDERED: Acetaminophen 325 MG TABLET PO PRN (20:34)
[2016-12-19] MEDS ORDERED: Dextrose Gel 15 GM PO PRN ×6 (20:34→22:09)
[2016-12-19] MEDS ORDERED: *HR* Dextrose 50 % in Water (Syg) 50 ML SYRINGE IVP PRN ×3 (20:34→22:09)
[2016-12-19] MEDS ORDERED: D5% in Water 1,000 ML IV PRN ×3 (20:34→22:09)
[2016-12-19] MEDS ORDERED: Loratadine 10 MG TABLET PO PRN (20:38)
--- NOTE | 2016-12-19 20:46 | Internal Med History&Physical ---
Date of Encounter: 12/19/16 Time of Encounter: 19:55 Assessment and Plan (1) Syncope and collapse Current visit: Yes Status: Acute 1. I suspect this is due to symptomatic bradycardia. 2. Decrease Metoprolol dose and start it in the morning with hold parameters. 3. Will cycle troponins, EKG's, Check ECHO, and carotid Dopplers. 4. Monitor glucose closely for hypoglycemia. 5. Neurochecks. (2) IDDM (insulin dependent diabetes mellitus) Current visit: Yes Status: Chronic 1. Hold Metformin. 2. Continue basal insulin and SSI. 3. Monitor glucose closely and adjust as necessary. (3) Lactic acidosis Current visit: Yes Status: Acute 1. I suspect this is due to syncope, bradycardia, and Metformin. 2. Recheck Lactacte level. 3. Hydrate with IVF. 4. Do not suspect sepsis based upon history and exam. (4) DVT prophylaxis Current visit: Yes Status: Acute 1. Heparin SQ. Internal Medicine - H&P: HPI Chief complaint: syncope Admitted From: Emergency Dept Plans for Post Hospital Care: Home History of present illness: Mr. Dubon is a 76 year old male who presents to the ER today with complaints of passing out. He lives at home alone and cares for himself. He was in his usual state of health and feeling well today. He stood up suddenly to answer the phone that was ringing and then he passed out, hitting his forehead on the drywall. He does not remember the event, but he remembers waking up on the ground. He was brought to ER and worked up. Other than some bradycardia, he had no significant findings. CT of the head and neck were negative. He did sustain a contusion to his right frontal forehead area. He was subsequently admitted to hospitalist service. I saw patient in the ER, and he was feeling well and had no complaints at the present time. He denies any chest pain, shortness of breath, shakes, jitteriness, vomiting, nausea, or diarrhea. He states he was feeling well and had no complaints prior to the syncopal event. His 2 sisters are present and confirm the history. He has never had a syncopal event before. He has coronary disease and has had CABG twice before. 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 He denies any chest pain, angina, exertional dyspnea, or ongoing cardiac symptoms prior to today's event. Presently he feels well and has no complaints. Past Med Surg Social Fam HX - Past Medical History Attestation: Yes The following information was validated with the patient. Source: patient, old records reviewed, obtained from family Medical history: cancer, coronary artery disease, diabetes, hypertension, myocardial infarction Psychiatric history: anxiety, depression - Past Surgical History Surgical History: cancer surgery, coronary bypass (CABG), other - Social History Smoking Status: Current every day smoker Smokeless Tobacco Status: No Alcohol use: rarely Drug use: none Current living situation: Home - Independent Activity Level: Independent ambulation Recent Out of Country Travel Within the Last 8 Weeks: No - Family History Father Living Status: Hx Family Cardiac Disorders: Yes Mother Living Status: Hx Family Neuromuscular Disorders: Yes Hx Family Neurologic Disorders: Yes Internal Medicine - H&P: Meds Budesonide/Formoterol 160/4.5 [Symbicort] 1 puff IH BIDR #1 hfa.aer.ad 07/23/15 [Rx] Clopidogrel [Plavix] 75 mg PO DAILY 07/23/15 [History] Cyclobenzaprine [Flexeril] 10 mg PO HS 07/23/15 [History] Metoprolol [Lopressor] 50 mg PO BID 07/23/15 [History] Simvastatin [Zocor] 40 mg PO HS 07/23/15 [History] Lidocaine/Prilocaine CREAM [Emla] 1 appl TP AD PRN #1 tube 04/12/16 [Rx] Prochlorperazine Maleate [Compazine] 10 mg PO Q6HR PRN #60 tablet 04/12/16 [Rx] Magic Mouthwash 5 ml PO Q4H PRN #240 ml 05/14/16 [Rx] Cetirizine HCl [Zyrtec] 10 mg PO DAILY PRN 06/14/16 [History] Cyanocobalamin (Vitamin B-12) [Vitamin B12] 1,000 mcg PO DAILY 06/14/16 [History ] FLUoxetine HCl [Prozac] 20 mg PO DAILY 09/17/16 [History] Albuterol Sulfate [Ventolin Hfa] 2 puff IH Q4H PRN 11/08/16 [History] Isosorbide MONOnitrate (24 HR) [Imdur] 30 mg PO DAILY 11/08/16 [History] Insulin DETEMIR [Levemir Flextouch] 20 unit SQ BID #1 insuln.pen 11/11/16 [Rx] Metformin [Glucophage] 500 mg PO BIDWM #60 tablet 11/11/16 [Rx] Insulin ASPART [Novolog Flexpen] 8 - 12 unit SQ TIDAC 12/17/16 [History] Allergies shellfish derived Allergy (Verified 12/17/16 13:29) Rash tree and shrub pollen Allergy (Verified 12/17/16 13:29) Rash - Constitutional Constitutional: no chills, no fever(s), no night sweats - EENT Eyes: no blurry vision, no change in vision, no diplopia Ears: no ear pain, no tinnitus Nose, mouth and throat: no nasal congestion, no sinus pain, no sinus pressure, no sore throat - Cardiovascular Cardiovascular ROS IM: syncope, no chest pain, no dyspnea, no dyspnea on exertion, no edema, no irregular heart rhythm, no lightheadedness, no orthopnea , no palpitations - Respiratory Respiratory: no cough, no dyspnea, no hemoptysis, no dyspnea on exertion, no wheezing, no chest congestion, no excessive phlegm production, no change in phlegm color - Gastrointestinal Gastrointestinal: no abdominal pain, no diarrhea, no hematemesis, no hematochezia, no melena, no nausea, no vomiting - Genitourinary Genitourinary ROS male: no dysuria, no flank pain, no hematuria - Musculoskeletal Musculoskeletal ROS IM: no arthralgias, no back pain - Integumentary Integumentary IM: no rash, no jaundice - Neurological Neurological ROS: no disequilibrium, no dizziness, no focal weakness, no frequent falls, no headache(s), no loss of vision, no vertigo, no weakness, no other visual disturbances - Psychiatric Psychiatric: no anxiety, no depression - Endocrine Endocrine IM: no cold intolerance, no heat intolerance, no polydipsia, no polyphagia, no polyuria - Hematologic/Lymphatic Hematologic/Lymphatic: easy bruising (Plavix), no lymphadenopathy - Allergic/Immunologic Allergic/Immunologic: no wheezing, no GI upset with certain foods - Constitutional Vitals: Temp Pulse Resp BP Pulse Ox 97.4 F L 68 16 117/60 90 L 12/19/16 12:28 12/19/16 18:08 12/19/16 18:23 12/19/16 18:23 12/19/16 18:08 General appearance: Present: cooperative, A&O X 3, pleasant, no acute distress, answers questions appropriately - Head Head exam: Absent: atraumatic (forhead contusion on right side just above his orbit), normal inspection - Expanded Head Exam Head exam expanded: Present: contusion (right forehead). Absent: general tenderness, raccoon eyes - Eye Eye exam: Present: EOMI, normal appearance, PERRL. Absent: scleral icterus Pupils: Present: normal accommodation - ENT ENT exam: Present: mucous membranes dry, normal exam, normal oropharynx - Neck Neck exam general surgery: Present: full ROM, supple, trachea midline. Absent: lymphadenopathy, tenderness, thyromegaly - Expanded Neck Exam Neck exam: Absent: carotid bruit - Respiratory Respiratory exam: Present: CTAB, prolonged expiratory phase. Absent: chest wall tenderness, rales, respiratory distress, rhonchi, wheezes - Cardiovascular Cardiovascular exam: Present: distant heart sounds, RRR, +S1, +S2. Absent: diastolic murmur, systolic murmur Additional comments: HR currently in the 60's; previously it was in the 50's. - GI/Abdominal GI/Abdominal exam: Present: soft. Absent: guarding, hepatomegaly, mass, rebound , splenomegaly, tenderness - Extremities Exam Extremities exam: Present: full ROM, warm. Absent: calf tenderness, joint swelling, pedal edema - Back Exam Back exam: Present: normal inspection. Absent: CVA tenderness (L), CVA tenderness (R) - Neurological Exam Neurological exam: Present: alert, CN II-XII intact, oriented X3, no focal deficits, strengths equal and symetr throughout - Psychiatric Psychiatric exam: Present: normal affect, normal mood - Skin Skin exam: Present: abrasion (right forehead), dry, warm Internal Med - H&P Results - Labs CBC & Chem 7: 12/19/16 12:49 12/19/16 12:49 - EKG Data -: EKG Interpreted by Myself EKG shows normal: sinus rhythm Rate: bradycardia - EKG Data Prior EKG available for review: no EKG comments: 12/19/16 20:54 HR 50's; bradycardic; otherwise no acute changes. - Diagnostic Studies Chest x-ray Status: image reviewed by me (negative)
[2016-12-19] MEDS ORDERED: NON-FORMULARY MEDICATION 1 EACH EACH (Insulin Detemir [Levemir Flextouch] 20 UNIT) SQ SCH (21:00)
[2016-12-19] MEDS ORDERED: Insulin LISPRO 300 UNITS/3 ML VIAL SQ SCH ×2 (21:15→21:45)
[2016-12-19 22:09] LABS: Hemoglobin A1C 9.7 %
[2016-12-19] MEDS: Insulin LISPRO 300 UNITS/3 ML VIAL SQ SCH (22:27)
[2016-12-19] MEDS: Insulin DETEMIR 100 UNIT/ML X5UNITS SQ SCH (22:27)
[2016-12-19] MEDS: 0.9 % Sodium Chloride 1,000 ML IVC SCH (22:28)
[2016-12-19] MEDS: Budesonide/Formoterol 160/4.5 MDI IH SCH (22:40)
[2016-12-20] MEDS: *HR* Heparin 5,000 UNIT/ML VIAL SQ SCH ×2 (05:38→17:38)
[2016-12-20] MEDS: 0.9 % Sodium Chloride 1,000 ML IVC SCH ×3 (05:44→23:38)
[2016-12-20 06:54] LABS: Basophils # 0.1 K/mcL (0.0-0.2); Basophils % 0.5 %; Eosinophils # 0.1 K/mcL (0.0-0.6); Eosinophils % 0.6 %; Hematocrit 36.6 % (37.5-50.1); Immature Granulocytes % 1.6 % (0-4); Immature Platelets 3.3 % (1.1-6.1); Lymphocytes # 1.8 K/mcL (0.6-4.6); Lymphocytes % 17.2 %; Mean Corpuscular HGB Conc 34.7 g/dL (31.6-35.5); Mean Corpuscular Hemoglobin 31.4 pg (28.0-33.3); Mean Corpuscular Volume 90.6 fL (83.0-100.0); Mean Platelet Volume 9.5 fL (9.4-12.4); Monocytes # 1.7 K/mcL (0.0-1.3); Monocytes % 15.6 %; Neutrophils # 6.8 K/mcL (1.6-8.9); Platelet Count 270 K/mcL (140-400); Red Blood Count 4.04 M/mcL (4.19-5.50); Red Cell Distribution Width 12.7 % (11.5-14.5); Segmented Neutrophils % 64.5 %
[2016-12-20 06:55] LABS: Hemoglobin 12.7 g/dL (12.9-16.9)
[2016-12-20 07:08] LABS: Alanine Aminotransferase 20 Units/L (0-55); Albumin 3.3 g/dL (3.5-5.0); Albumin/Globulin Ratio 1.3 (1.1-2.2); Alkaline Phosphatase 87 Units/L (38-126); Aspartate Amino Transferase 22 Units/L (5-34); BUN/Creatinine Ratio 17 (6-26); Bilirubin,Total 0.6 mg/dL (0.2-1.2); Blood Urea Nitrogen 14 mg/dL (8-26); Calcium 8.1 mg/dL (8.6-10.8); Carbon Dioxide 27 mEq/L (19-29); Chloride 101 mEq/L (98-109); Chol/HDL Ratio 4.3 (0-4.9); Cholesterol 121 mg/dL (< 200); Globulin 2.5 g/dL (2.4-3.5); Glucose 77 mg/dL (70-99); HDL Cholesterol 28 mg/dL (40-59); LDL Cholesterol,Calculated 68 mg/dL (0-99); Magnesium 1.6 mg/dL (1.6-2.6); Osmolality,Calculated 275 (280-300); Potassium 3.8 mEq/L (3.5-4.5); Sodium 133 mEq/L (136-145); Total Protein 5.8 g/dL (6.0-8.3); Triglycerides 123 mg/dL (< 150); eGFR For African Americans > 60 (> 60); eGFR For Non-African Americans > 60 (> 60)
[2016-12-20] MEDS: Isosorbide MONOnitrate (24 HR) 30 MG TAB.ER.24H PO SCH (08:10)
[2016-12-20] MEDS: Insulin LISPRO 300 UNITS/3 ML VIAL SQ SCH ×4 (08:13→21:29)
[2016-12-20] MEDS ORDERED: Perflutren Lipid Microsphere 1.3 ML in 0.9 % Sodium Chloride 8.7 ML IVP ONE (09:09)
[2016-12-20] MEDS: Insulin DETEMIR 100 UNIT/ML X5UNITS SQ SCH (10:19)
--- NOTE | 2016-12-20 10:33 | ECHO - Doppler Report ---
Echo with Imaging Enhancement Agent Name: José Miguel Dubon Date of Study: 12/20/2016 Date: 1940 Ht: 70.0 in Medical Record#: [id number] Age: 76 Wt: 153.0 lb Gender: Male BSA: 1.86 Order #: [id number] Location: [facility] Room #: 2A32 Reading Physician: Latesha Hall DO Batch Room Technician: Franky Kerns RN Ordering Physician: Noah Coker MD Primary Physician: Elmo Arriaga MD Indications: Syncope Impressions: LVEF 60%. Normal left ventricular size and systolic function. There is evidence of mild diastolic dysfunction of the left ventricle. RV is not well visualized. No significant valvular dysfunction. No pulmonary hypertension. Left Ventricular Wall Motion: Rest Echo Findings All wall segments showed normal motion. Findings: Study Quality * Technically adequate exam. ECG Findings * Normal sinus rhythm. Left Ventricle * LVEF 60%. * Normal LV chamber size, wall thickness and function. * Mild left ventricular diastolic dysfunction. * Definity echo contrast was used. Aortic Valve * No aortic regurgitation. * Aortic valve not well visualized. * No aortic stenosis. Mitral Valve * Normal mitral valve structure. * No mitral regurgitation. * No mitral stenosis. Tricuspid Valve * Tricuspid valve not well visualized. * No tricuspid regurgitation. * Estimated RA pressure is 3 mmHg. Pulmonic Valve * Pulmonic valve is not well visualized. * No pulmonic stenosis. * No pulmonic regurgitation. Pulmonary Artery * Pulmonary artery not well visualized. Left Atrium * Normal left atrial size. Right Ventricle * RV is not well visualized. Right Atrium * Right atrium is not well visualized. Interatrial Septum * No evidence of PFO by color Doppler. IVC * Normal IVC dimensions and inspiratory collapse. Pericardium * There is no pericardial effusion present. Aorta * Not well visualized. History Hypertension Diabetes Hypercholesteremia History of Smoking Years 66 Packs 1 Family History of CAD History of CAD/PTCA Myocardial Infarction Coronary Artery Bypass Graft Congestive Heart Failure Contrast: Definity 1.3 ml in 8.7 ml of saline 2 ml. Measurements: BP: 135/ 67 2D Normal Values IVSd: .90 cm 0.6 - 1.0 cm LVIDd: 4.30 cm 3.7 - 5.6 cm LVPWd: .90 cm 0.6 - 1.1 cm LVIDs: 2.50 cm 1.5 - 3.6 cm LA: 3.10 cm 2.0 - 4.0cm %FS: 41.90 cm >25 % LVOT Diam: 2.00 cm LA volume: 52 Mitral Valve Peak E:.86 m/sec Peak A:.79 m/sec E/A Ratio:1.1 Peak E' Lat Jose:10.3 cm/s Peak E' Med Jose:12.3 cm/s E/E' Lat Ratio:8.3 E/E' Med Ratio:7 Updated by Latesha Hall on 12/20/2016 10:26:55 AM electronically signed on 12/20/2016 10:27:48 AM with status of Final Wall Motion [place]: 1=Normal, 2=Hypokinesis, 3=Akinesis, 4=Dyskinesis, 5=Aneurysmal, 6=Hyperkinetic, X=Not Visualized (Blank)=Missing
[2016-12-20] MEDS: Budesonide/Formoterol 160/4.5 MDI IH SCH ×2 (10:50→20:24)
--- NOTE | 2016-12-20 12:10 | Electrocardiograph Report ---
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
[2016-12-20] MEDS: Cyanocobalamin (B-12) 1,000 MCG TABLET PO SCH (15:27)
[2016-12-20] MEDS: FLUoxetine 20 MG CAPSULE PO SCH (15:27)
--- NOTE | 2016-12-20 16:23 | Internal Med Progress Note ---
<Raul Curiel - Last Filed: 12/20/16 16:16> Date of Encounter: 12/20/16 Time of Encounter: 09:30 - Assessment and plan (1) Syncope and collapse Current Visit: Yes Status: Acute Assessment and plan: Acute onset syncopal episode. No previous episodes of syncope. No significant cardiac history. Patient denies history of arrhythmias or cardiology follow- ups. Relevant history: recently treated for metastatic skin cancer with completion of chemotherapy in September. Chest x-ray demonstrates no acute cardiac or pulmonary disease. Cervical CT demonstrates severe degenerative changes, osteopenia with mild mottled appearance of vertebral bodies. No acute abnormality of the cervical spine. Head CT demonstrates stable appearance of brain with no acute intracranial abnormality. Echocardiogram demonstrates LVEF 60%, normal left ventricular size and systolic function. Mild diastolic dysfunction of left ventricle. RV is not well visualized. No significant valvular dysfunction. No pulmonary hypertension. Preliminary bilateral carotid duplex showed nonstenotic plaques Cardiology consulted for cardiac evaluation of syncopal event. Patient may need outpatient holter monitor if work up is negative. Troponin levels not elevated. Given patient's history syncopal event may be secondary to hypoglycemia. Plan: - Final carotid duplex scan results pending - Orthostatics - Continue cardiac monitoring - Cardiology follow-up. (2) Diabetes mellitus, new onset Current Visit: No Status: Acute Assessment and plan: Patient was diagnosed with type 2 diabetes in November of this year. Suspect onset secondary to chemotherapy. Patient's echo episode may be secondary to hypoglycemic events. Plan: - Continue inpatient monitoring of glucose levels - Continue Levemir 10 units subcutaneous at bedtime, Levemir 20 units subcutaneous daily - Continue medium dose inpatient sliding scale - Consult to diabetic education placed. (3) Squamous cell carcinoma of head and neck Current Visit: No Status: Chronic Assessment and plan: History of squamous cell carcinoma. Patient recently completed chemotherapy in September. Continues to have port in right upper chest. (4) DVT prophylaxis Current Visit: No Status: Acute Assessment and plan: Subcutaneous heparin 5000 units every 12 hours. - Subjective Interval history: Mr. Dubon 76 yo male has been seen and evaluated at patient bedside this am. In re discussing the events that led up to his syncopal episode he said that he woke up and his glucoses were in the upper 400s he took his Levemir, preprandial insulin and metformin and then decided not to eat breakfast and drinking coffee because he wanted his glucoses to improve. He was talking on the phone with his sister when he had the feeling that he is going to pass out and then woke up on the floor. He said he rechecked his glucose was 350. He said at some point he fell and put his head into the wall. He denies any trouble thinking, headaches, change in vision or loss of vision, weakness, chest pain, palpitations, diaphoresis or fevers. He denies any abdominal pains , nausea, vomiting, diarrhea or constipation. He denies any episodes of chest pain, palpitations leading up to the syncopal event. He denies any history of syncopal events. Significant medical history he recently completed chemotherapy in September and continues to have a poor access in his right upper thorax. He denies any significant cardiac history, neurologic history or orthostatic history. - Constitutional Vitals: Temp Pulse Resp BP Pulse Ox 97.5 F L 61 18 127/56 90 L 12/20/16 11:31 12/20/16 11:31 12/20/16 11:31 12/20/16 11:31 12/20/16 11:31 General appearance: Present: cooperative, A&O X 3, pleasant, no acute distress, answers questions appropriately - Head Head exam: Present: atraumatic, normocephalic - Eye Eye exam: Present: PERRL, conjuntiva pink, sclera anicteric Pupils: Present: PERRL - ENT ENT exam: Present: mucous membranes moist - Neck Neck exam general surgery: Present: supple, trachea midline. Absent: lymphadenopathy - Respiratory Respiratory exam: Present: CTAB. Absent: accessory muscle use, rales, rhonchi, wheezes Additional comments: Chemotherapy port in right upper thorax, surrounding skin is without erythema or edema. - Cardiovascular Cardiovascular exam: Present: RRR, +S1, +S2. Absent: diastolic murmur, gallop, rubs, systolic murmur - GI/Abdominal GI/Abdominal exam: Present: normal bowel sounds, soft, no peritoneal signs. Absent: distended, tenderness - Extremities Exam Extremities exam: Present: warm, radial pulses palpable and symetrical. Absent : calf tenderness, cyanotic, pedal edema - Neurological Exam Neurological exam: Present: alert, CN II-XII intact, oriented X3, no focal deficits, strengths equal and symetr throughout. Absent: pronater drift, facial droop, speech deficit - Psychiatric Psychiatric exam: Present: normal affect, normal mood Internal Medicine: Result - Labs CBC & Chem 7: 12/20/16 06:28 12/20/16 06:28 Labs: Short CBC 12/20/16 Range/Units 06:28 WBC 10.6 (4.3-11.1) K/mcL Hgb 12.7 L D (12.9-16.9) g/dL Hct 36.6 L (37.5-50.1) % Plt Count 270 (140-400) K/mcL Neutrophils # 6.8 (1.6-8.9) K/mcL BMP 12/20/16 06:28 Sodium 133 L Potassium 3.8 Chloride 101 Carbon Dioxide 27 BUN 14 Creatinine 0.82 Glucose 77 Calcium 8.1 L Cardiac Enzymes 12/19/16 12/20/16 12/20/16 Range/Units 21:41 06:28 12:51 Troponin I 0.00 0.00 0.00 (0-0.03) ng/mL Liver Function 12/20/16 Range/Units 06:28 Total Bilirubin 0.6 (0.2-1.2) mg/dL AST 22 (5-34) Units/L ALT 20 (0-55) Units/L Alkaline Phosphatase 87 (38-126) Units/L Albumin 3.3 L (3.5-5.0) g/dL - ABG Interpretation ABG results: PT/INR, D-dimer PT 11.4 Seconds (9.4-12.1) 12/19/16 12:49 Consult Discharge Plan - Plan Referrals: Elmo Arriaga Jr, MD [Primary Care Provider] - (web request sent on 12/20/16 ) <Manav Lentz - Last Filed: 12/20/16 19:20> - Assessment and plan (1) Syncope and collapse Current Visit: Yes Status: Acute (2) Diabetes Current Visit: Yes Status: Acute Assessment and plan: Monitoring blood glucose and adjusting medications. Blood sugars very labile. 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 transplanted heart: [place] heart Associated angina: without angina Qualified Code(s): I25.10 - Atherosclerotic heart disease of [place] coronary artery without angina pectoris (4) Hypertension Current Visit: No Status: Acute Assessment and plan: Continue home meds and monitoring. Qualifiers: Hypertension type: essential hypertension Qualified Code(s): I10 - Essential (primary) hypertension (5) Tobacco use Current Visit: No Status: Chronic Assessment and plan: Cessation counselling. (6) Squamous cell carcinoma of head and neck Current Visit: No Status: Chronic - Constitutional Vitals: Temp Pulse Resp BP Pulse Ox 98.0 F 69 16 115/58 90 L 12/20/16 16:52 12/20/16 16:52 12/20/16 16:52 12/20/16 16:52 12/20/16 16:52 Internal Medicine: Result - Labs CBC & Chem 7: 12/20/16 06:28 12/20/16 06:28 Labs: Short CBC 12/20/16 Range/Units 06:28 WBC 10.6 (4.3-11.1) K/mcL Hgb 12.7 L D (12.9-16.9) g/dL Hct 36.6 L (37.5-50.1) % Plt Count 270 (140-400) K/mcL Neutrophils # 6.8 (1.6-8.9) K/mcL BMP 12/20/16 06:28 Sodium 133 L Potassium 3.8 Chloride 101 Carbon Dioxide 27 BUN 14 Creatinine 0.82 Glucose 77 Calcium 8.1 L Cardiac Enzymes 12/19/16 12/20/16 12/20/16 Range/Units 21:41 06:28 12:51 Troponin I 0.00 0.00 0.00 (0-0.03) ng/mL Liver Function 12/20/16 Range/Units 06:28 Total Bilirubin 0.6 (0.2-1.2) mg/dL AST 22 (5-34) Units/L ALT 20 (0-55) Units/L Alkaline Phosphatase 87 (38-126) Units/L Albumin 3.3 L (3.5-5.0) g/dL - ABG Interpretation ABG results: PT/INR, D-dimer PT 11.4 Seconds (9.4-12.1) 12/19/16 12:49 - Attending Attestation I examined this patient and my medical decision-making was reviewed with the Resident Physician on 12/20/16. I agree with the documented findings, disposition and treatment plan as described except to the extent set forth below. Mr. Dubon is currently in observation due to acute syncopal episode. Mr. Dubon is currently feeling OK. He has had no further symptoms. No dysrhythmia noted. No CP or SOB. BS have been very labile. Exam Alert. Comfortable Heart reg No wheeze Abd soft I/P 1. Syncope - most likley hypoglycemia. Due to significance of event will ask for card input. 2. DM 3. HTN Further diagnoses and plan as above.
[2016-12-20] MEDS ORDERED: Insulin DETEMIR 100 UNIT/ML X5UNITS SQ SCH (21:00)
[2016-12-21 04:56] LABS: Basophils % 0.5 %; Eosinophils # 0.1 K/mcL (0.0-0.6); Eosinophils % 1.2 %; Hematocrit 35.8 % (37.5-50.1); Hemoglobin 12.3 g/dL (12.9-16.9); Immature Granulocytes % 1.3 % (0-4); Lymphocytes # 1.5 K/mcL (0.6-4.6); Lymphocytes % 19.1 %; Mean Corpuscular HGB Conc 34.4 g/dL (31.6-35.5); Mean Corpuscular Hemoglobin 30.7 pg (28.0-33.3); Mean Corpuscular Volume 89.3 fL (83.0-100.0); Mean Platelet Volume 9.6 fL (9.4-12.4); Monocytes # 1.2 K/mcL (0.0-1.3); Monocytes % 15.6 %; Neutrophils # 4.8 K/mcL (1.6-8.9); Platelet Count 216 K/mcL (140-400); Red Blood Count 4.01 M/mcL (4.19-5.50); Red Cell Distribution Width 12.7 % (11.5-14.5); Segmented Neutrophils % 62.3 %
[2016-12-21 04:58] LABS: Alanine Aminotransferase 19 Units/L (0-55); Albumin 3.2 g/dL (3.5-5.0); Albumin/Globulin Ratio 1.2 (1.1-2.2); Alkaline Phosphatase 88 Units/L (38-126); Aspartate Amino Transferase 20 Units/L (5-34); BUN/Creatinine Ratio 13 (6-26); Bilirubin,Total 0.4 mg/dL (0.2-1.2); Blood Urea Nitrogen 9 mg/dL (8-26); Calcium 8.3 mg/dL (8.6-10.8); Carbon Dioxide 25 mEq/L (19-29); Chloride 103 mEq/L (98-109); Globulin 2.6 g/dL (2.4-3.5); Glucose 136 mg/dL (70-99); Osmolality,Calculated 283 (280-300); Potassium 3.6 mEq/L (3.5-4.5); Sodium 136 mEq/L (136-145); Total Protein 5.8 g/dL (6.0-8.3); eGFR For African Americans > 60 (> 60); eGFR For Non-African Americans > 60 (> 60)
[2016-12-21] MEDS: *HR* Heparin 5,000 UNIT/ML VIAL SQ SCH (05:03)
[2016-12-21] MEDS: Budesonide/Formoterol 160/4.5 MDI IH SCH (08:06)
[2016-12-21] MEDS: 0.9 % Sodium Chloride 1,000 ML IVC SCH (08:08)
[2016-12-21] MEDS: FLUoxetine 20 MG CAPSULE PO SCH (08:09)
[2016-12-21] MEDS: Cyanocobalamin (B-12) 1,000 MCG TABLET PO SCH (08:09)
[2016-12-21] MEDS: Insulin LISPRO 300 UNITS/3 ML VIAL SQ SCH ×2 (08:09→11:50)
[2016-12-21] MEDS: Isosorbide MONOnitrate (24 HR) 30 MG TAB.ER.24H PO SCH (08:09)
[2016-12-21] MEDS ORDERED: Insulin DETEMIR 100 UNIT/ML X5UNITS SQ SCH (09:00)
[2016-12-21 11:22] VITALS: BP 128/65
--- NOTE | 2016-12-21 11:28 | Cardiology Consult Note ---
Date of Encounter: 12/21/16 Time of Encounter: 10:00 Assessment and Plan (1) Syncope and collapse Current Visit: Yes Status: Acute Per cadiology: -Patient with one episode of syncope at home that occured from position change from sitting to standing. -One other episode of near syncope, -Denies any other episodes of syncope. -Troponins negative x4. -ECG with sinus bradycardia at 59. -Telemetry reviewed with average HR 70. No significant events noted. -Per discussion with , it is felt that this is most likely due to orthostatic hypotension. Patient encouraged to stay well hydrated and to increased salt intake. Patient states understanding. -Cardiology will sign off and will follow as outpatient. Follow up set up. (DEMETRA) (2) CAD (coronary artery disease) Current Visit: Yes Status: Chronic Per cardiology: -Known history of CAD. -Status post CABG in 2002 at [facility]. Patient states he does not know grafts. -On plavix, imdur, beta debbie, and statin. -Denies chest pain. -Echo 12/20/16 with LVEF 60%, mild diastolic dysfunction, no significant valvular dysfunction, no pulmonary hypertension, all wall segments with normal motion. -Stress 11/21/16 negative for ischemia. Troponins negative x4. -Will add asa. -Will follow as outpatient. (DEMETRA) Qualifiers: Coronary Disease-Associated Artery/Lesion type: [place] artery [place] vs. transplanted heart: [place] heart Associated angina: without angina Qualified Code(s): I25.10 - Atherosclerotic heart disease of [place] coronary artery without angina pectoris (3) IDDM (insulin dependent diabetes mellitus) Current Visit: Yes Status: Chronic Per cardiology: -Recent diagnosis of DM. -Management per primary service. (DEMETRA) Discussion w patient/family: The assessment and plan as outlined above was discussed with the patient who expressed understanding and agreement. All questions were answered. Thank you for involving us in the care of your patient. Please call with any questions. Patient seen and examined with JUANITA Mak Discussed and reviewed with Dr.John Bazan. History of Present Illness Consult date: 12/21/16 Requesting physician: Manav Lentz Consult reason: syncope/collapse Chief complaint: syncope History of present illness: Mr. Dubon is a 76 year old male with a relevant past medical history of hyperlipidemia, HTN, MIx2, COPD, TIA, DM, [place], CABG in 2002. Patient presented to the ER after he "passed out and fell." Patient states that he was sitting at his kitchen table preparing to eat when the phone rang and he got up to answer the phone. He remembers answering the phone and then feeling like he was going to pass out. The patient states the next thing he remembers is he was on the floor and through the phone he could hear his sister asking if he was ok. The patient states he laid there and his sister called other aily members to come check on him. Patient states when family arrived they noticed a large hole in the wall of the kitchen where he had fallen into it. The patient states that before this episode, he had taken all of his diabetic medications. Pateint states that he checked his sugar that morning and it was 457. Patient states he took all of his diabetic medications and did not eat anything. Patient reports he has had episodes of hypoglycemia, but this episode was different. Patient states he has also had one other episode of near syncope. Patient states this one was in August, but he was able to lay down and not pass out. Patient states he came to the ER then was sent home. Patient states he went to his PCP and his PCP said he had a TIA. (DEMETRA) Past Med Surg Social Fam HX - Past Medical History Attestation: Yes The following information was validated with the patient. Source: patient, old records reviewed Medical history: cancer, coronary artery disease, diabetes, hypertension, myocardial infarction Psychiatric history: depression - Past Surgical History Surgical History: coronary bypass (CABG) - Social History Smoking Status: Current every day smoker Packs per day: 1 Smokeless Tobacco Status: No Alcohol use: rarely Drug use: none - Family History Father Living Status: Hx Family Cardiac Disorders: Yes Mother Living Status: Hx Family Neuromuscular Disorders: Yes Hx Family Neurologic Disorders: Yes Medications and Allergies Budesonide/Formoterol 160/4.5 [Symbicort] 1 puff IH BIDR #1 hfa.aer.ad 07/23/15 [Rx] Clopidogrel [Plavix] 75 mg PO DAILY 07/23/15 [History] Cyclobenzaprine [Flexeril] 10 mg PO HS 07/23/15 [History] Metoprolol [Lopressor] 50 mg PO BID 07/23/15 [History] Simvastatin [Zocor] 40 mg PO HS 07/23/15 [History] Lidocaine/Prilocaine CREAM [Emla] 1 appl TP AD PRN #1 tube 04/12/16 [Rx] Prochlorperazine Maleate [Compazine] 10 mg PO Q6HR PRN #60 tablet 04/12/16 [Rx] Magic Mouthwash 5 ml PO Q4H PRN #240 ml 05/14/16 [Rx] Cetirizine HCl [Zyrtec] 10 mg PO DAILY PRN 06/14/16 [History] Cyanocobalamin (Vitamin B-12) [Vitamin B12] 1,000 mcg PO DAILY 06/14/16 [History ] FLUoxetine HCl [Prozac] 20 mg PO DAILY 09/17/16 [History] Albuterol Sulfate [Ventolin Hfa] 2 puff IH Q4H PRN 11/08/16 [History] Isosorbide MONOnitrate (24 HR) [Imdur] 30 mg PO DAILY 11/08/16 [History] Insulin DETEMIR [Levemir Flextouch] 20 unit SQ BID #1 insuln.pen 11/11/16 [Rx] Metformin [Glucophage] 500 mg PO BIDWM #60 tablet 11/11/16 [Rx] Insulin ASPART [Novolog Flexpen] 8 - 12 unit SQ TIDAC 12/17/16 [History] Allergies shellfish derived Allergy (Verified 12/17/16 13:29) Rash tree and shrub pollen Allergy (Verified 12/17/16 13:29) Rash All Systems Review: A 10-system review of systems was performed and is negative for pertinent findings except as documented above in the HPI. - Cardiovascular Cardiovascular: as per HPI, syncope Physical Examination Vital Signs, Last 4 Hours Temp Pulse Resp BP Pulse Ox 12/21/16 10:54 97.5 F L 60 18 128/65 95 12/21/16 07:24 98.2 F 69 16 145/65 95 General: Conversant, No Apparent Distress HEENT: Normocephaly, Mucus Membranes Moist, Other (Rght eye noted with ecchymosis. ) Cardiac: Reg Rate and Rhythm, Normal S1 and S2, No Murmur Lungs: Normal Breath Sounds, No Wheeze, Rales, Rhonchi Neuro: Alert and responsive, No focal deficits noted Abdomen: Soft, Non-Tender Skin: No rashes noted on visualized skin Musculoskeletal: No Chest Wall Tenderness Extremities: No Clubbing, No Cyanosis, No Edema, Normal Pulses Results 12/21/16 04:00 12/21/16 04:00 Active Medications Acetaminophen (Tylenol) 650 mg PO Q6HR PRN PRN Reason: Mild Pain (1-3) Stop: 06/20/17 20:35 Albuterol Sulfate (Albuterol Inhaler) 2 puff IH Q4H PRN PRN Reason: Shortness Of Breath Stop: 06/20/17 20:39 Budesonide/Formoterol Fumarate (Symbicort) 1 puff IH BIDR [facility] PRN Reason: Protocol Stop: 06/20/17 22:01 Last Admin: 12/21/16 08:06 Dose: 1 puff Clopidogrel Bisulfate (Plavix) 75 mg PO DAILY [facility] Stop: 06/21/17 09:01 Last Admin: 12/21/16 08:09 Dose: 75 mg Cyanocobalamin (Vitamin B12) 1,000 mcg PO DAILY [facility] Stop: 06/21/17 13:07 Last Admin: 12/21/16 08:09 Dose: 1,000 mcg Dextrose/Water (Dextrose 50% (Syg)) 25 ml IVP AD PRN PRN Reason: Hypoglycemia Stop: 06/20/17 22:10 Fluoxetine HCl (Prozac) 20 mg PO DAILY [facility] PRN Reason: Protocol Stop: 06/21/17 13:07 Last Admin: 12/21/16 08:09 Dose: 20 mg Glucagon (Glucagen) 1 mg IM ONCE PRN PRN Reason: Hypoglycemia Stop: 06/20/17 22:10 Glucose (Gluctose) 30 gm PO ONCE PRN PRN Reason: Hypoglycemia Stop: 06/20/17 22:02 Glucose (Gluctose) 15 gm PO ONCE PRN PRN Reason: Hypoglycemia Stop: 06/20/17 22:10 Heparin Sodium (Porcine) (Heparin) 5,000 unit SQ Q12HCO [facility] Stop: 06/21/17 06:01 Last Admin: 12/21/16 05:03 Dose: 5,000 unit Sodium Chloride (0.9 % Sodium Chloride) 1,000 mls @ 125 mls/hr IVC .Q8H [facility] Stop: 06/20/17 20:46 Last Admin: 12/21/16 08:08 Dose: 125 mls/hr Dextrose (Dextrose 5%) 1,000 mls @ 100 mls/hr IV CONT PRN PRN Reason: HYPOGLYCEMIA Stop: 06/20/17 22:10 Insulin Detemir (Levemir) 10 unit SQ HS [facility] Stop: 06/21/17 21:01 Last Admin: 12/20/16 21:30 Dose: 10 unit Insulin Detemir (Levemir) 20 unit SQ DAILY [facility] Stop: 06/22/17 09:01 Last Admin: 12/21/16 08:09 Dose: 20 unit Insulin Human Lispro (Humalog) 0 units SQ HS [facility] PRN Reason: Protocol Stop: 06/20/17 22:16 Last Admin: 12/20/16 21:29 Dose: 3 units Insulin Human Lispro (Humalog) 0 units SQ TIDAC [facility] PRN Reason: Protocol Stop: 06/21/17 07:31 Last Admin: 12/21/16 08:09 Dose: Not Given Isosorbide Mononitrate (Imdur) 30 mg PO DAILY [facility] Stop: 06/21/17 09:01 Last Admin: 12/21/16 08:09 Dose: 30 mg Loratadine (Claritin) 10 mg PO DAILY PRN PRN Reason: Allergic Symptoms Metoprolol Tartrate (Lopressor) 25 mg PO BID [facility] Stop: 06/21/17 08:01 Last Admin: 12/21/16 08:09 Dose: 25 mg Naloxone HCl (Narcan) 0.4 mg IVP Q2MIN PRN PRN Reason: Opioid Reversal Stop: 06/20/17 20:35 Ondansetron HCl (Zofran) 4 mg IVP Q8HR PRN PRN Reason: Nausea And Vomiting Stop: 06/20/17 20:35 Oxycodone HCl (Roxicodone) 5 mg PO Q6HR PRN PRN Reason: Moderate Pain (4-6) Stop: 06/20/17 20:35 Simvastatin (Zocor) 40 mg PO HS [facility] PRN Reason: Protocol Stop: 06/20/17 21:01 Last Admin: 12/20/16 21:29 Dose: 40 mg Laboratory Tests 12/19/16 12/19/16 12/19/16 12:49 12:49 21:41 Hgb Hct Creatinine Glucose 236 H Troponin I 0.00 0.00 03/16/17 03/16/17 03/17/17 06:28 12:51 04:00 Hgb 12.3 L Hct 35.8 L Creatinine Glucose Troponin I 0.00 0.00 12/21/16 04:00 Hgb Hct Creatinine 0.69 L Glucose Troponin I - Imaging and Cardiology Chest Xray: report reviewed Stress Test: report reviewed Echo: report reviewed - EKG Interpretation EKG results cardiology: personally reviewed (ECG with sinus bradycardia, heart rate 59. Artifact noted.), other (Telemetry reviewed with average heart rate 70 , minumum HR 56 at 0851. Occasional PVCs and PACs noted.) Consult Discharge Plan - Plan Referrals: Elmo Arriaga Jr, MD [Primary Care Provider] - (web request sent on 12/20/16 )
--- NOTE | 2016-12-21 14:56 | Discharge Summary ---
<Raul Curiel - Last Filed: 12/21/16 14:54> Date of Encounter: 12/21/16 Time of Encounter: 14:54 - Discharge Diagnosis (1) Syncope and collapse Priority: Primary Status: Acute (2) Diabetes mellitus, new onset Priority: Secondary Status: Acute (3) Squamous cell carcinoma of head and neck Priority: Secondary Status: Chronic (4) DVT prophylaxis Priority: Secondary Status: Acute - Discharge Medications Home Medications: Budesonide/Formoterol 160/4.5 [Symbicort] 1 puff IH BIDR #1 hfa.aer.ad 07/23/15 [Rx] Clopidogrel [Plavix] 75 mg PO DAILY 07/23/15 [History] Cyclobenzaprine [Flexeril] 10 mg PO HS 07/23/15 [History] Metoprolol [Lopressor] 50 mg PO BID 07/23/15 [History] Simvastatin [Zocor] 40 mg PO HS 07/23/15 [History] Lidocaine/Prilocaine CREAM [Emla] 1 appl TP AD PRN #1 tube 04/12/16 [Rx] Prochlorperazine Maleate [Compazine] 10 mg PO Q6HR PRN #60 tablet 04/12/16 [Rx] Magic Mouthwash 5 ml PO Q4H PRN #240 ml 05/14/16 [Rx] Cetirizine HCl [Zyrtec] 10 mg PO DAILY PRN 06/14/16 [History] Cyanocobalamin (Vitamin B-12) [Vitamin B12] 1,000 mcg PO DAILY 06/14/16 [History ] FLUoxetine HCl [Prozac] 20 mg PO DAILY 09/17/16 [History] Albuterol Sulfate [Ventolin Hfa] 2 puff IH Q4H PRN 11/08/16 [History] Isosorbide MONOnitrate (24 HR) [Imdur] 30 mg PO DAILY 11/08/16 [History] Insulin DETEMIR [Levemir Flextouch] 20 unit SQ BID #1 insuln.pen 11/11/16 [Rx] Metformin [Glucophage] 500 mg PO BIDWM #60 tablet 11/11/16 [Rx] Insulin ASPART [Novolog Flexpen] 8 - 12 unit SQ TIDAC 12/17/16 [History] Allergies/Adverse Reactions: Allergies shellfish derived Allergy (Verified 12/17/16 13:29) Rash tree and shrub pollen Allergy (Verified 12/17/16 13:29) Rash Procedures/tests Complete & Pending: Procedures Performed prior 72 hours Category Date Time Status ECG 12 lead ECG [ECG] AM 0600 Y 12/20/16 06:00 Ordered EV carotid duplex imaging BI Routine Y 12/20/16 20:34 Completed EV echocardiogram w enhance Routine Y 12/20/16 20:34 Completed Date of admission: 12/19/16 18:11 Primary care physician: Elmo Arriaga Jr, MD Consults: 12/19/16 20:34 Consult to Operations And Maintenance Supervisor [CONS] Routine Comment: 12/19/16 23:08 Consult to Auto Tune Up Mechanic [CONS] Routine Reason for SW Consult: Discharge planning 12/21/16 08:28 Consult to Cardiology [CONS] Routine Comment: Consulting Provider: Cardiology Sari Reason for Consult: sycope/ collapse Call Completed: No Discharging clinician: Raul Curiel Anticipated date of discharge: 12/21/16 - Patient Status Disposition: Home, Self-Care Condition: Good Functional capacity at discharge: independent ambulation Overall status at discharge: patient is back to baseline - Discharge Instructions Instructions: Syncope (DC), Diabetes Mellitus Type 2 in Adults (DC), Head Injury (DC) Follow Up With: Elmo Arriaga Jr, MD [Primary Care Provider] - (web request sent on 12/20/16 ) Additional Instructions: I recommend taking medications as prescribed. Follow-up with primary care physician in the next to 5 days Orthostatic hypotension, patient should take time to steady self from laying to sitting and sitting to standing. - Diet and Activity Activity: increase activity as tolerated Diet: diabetic diet Interval History: Mr. Dubon 76-year-old male with a recent diagnosis of type 2 diabetes and recently completed chemotherapy for metastatic cancer was admitted after a syncopal events. He was admitted to general medical floor placed on telemetry, initial glucose was slightly elevated in the 200s, no other significant findings on laboratory results. chest x-ray did not demonstrate any acute process, electrocardiogram demonstrates normal sinus rhythm, head CT performed does not demonstrate any acute process. Cervical spine CT demonstrates severe degenerative changes, osteopenia with mild mottled appearance of vertebral bodies. Emphysema. No acute abnormality of the cervical spine. Echocardiogram demonstrates LVEF of 60%, normal left ventricular size and systolic function. There is evidence of mild diastolic dysfunction of left ventricle. RV is not well visualized. No significant valvular dysfunction. No pulmonary hypertension. Bilateral carotid duplex shows nonstenotic plaques bilateral. Telemetry monitoring had no acute events. Patient received IV rehydration for acute kidney injury likely secondary to dehydration. Orthostatic blood pressures demonstrated orthostatic hypotension, blood pressure lying 144/64, blood pressure sitting 128/63, blood pressure standing 94 /57. Cardiology was consulted in agreement with likely orthostatic hypotension. On 12/21/2016 patient received IV rehydration completed around 1700 and was deemed stable for discharge home with close follow-up with his primary care physician. Prior to discharge there was extensive discussion regarding orthostatic hypotension and steading self prior to ambulating. Hospital course: Mr. Dubon is a 76 year old male - Time Spent with Patient Total time spent providing and/or coordinating discharge services: - Constitutional Vitals: Temp Pulse Resp BP Pulse Ox 97.5 F L 60 18 128/65 95 12/21/16 10:54 12/21/16 10:54 12/21/16 10:54 12/21/16 10:54 12/21/16 10:54 General appearance: Present: cooperative, A&O X 3, pleasant, no acute distress, answers questions appropriately - Head Head exam: Present: atraumatic, normocephalic - Eye Eye exam: Present: conjuntiva pink, sclera anicteric - Neck Neck exam general surgery: Present: supple, trachea midline. Absent: lymphadenopathy - Respiratory Respiratory exam: Present: CTAB. Absent: accessory muscle use, rales, rhonchi, wheezes - Cardiovascular Cardiovascular exam: Present: RRR, +S1, +S2. Absent: diastolic murmur, gallop, rubs, systolic murmur - GI/Abdominal GI/Abdominal exam: Present: normal bowel sounds, soft, no peritoneal signs. Absent: distended, tenderness - Extremities Exam Extremities exam: Present: warm, radial pulses palpable and symetrical. Absent : calf tenderness, cyanotic, pedal edema - Neurological Exam Neurological exam: Present: CN II-XII intact, oriented X3, no focal deficits. 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 transplanted heart: [place] heart Associated angina: without angina Qualified Code(s): I25.10 - Atherosclerotic heart disease of [place] coronary artery without angina pectoris (5) Hypertension Priority: Secondary Status: Acute Qualifiers: Hypertension type: essential hypertension Qualified Code(s): I10 - Essential (primary) hypertension (6) Tobacco use Priority: Secondary Status: Chronic (7) Squamous cell carcinoma of head and neck Status: Chronic Procedures/tests Complete & Pending: Procedures Performed prior 72 hours Category Date Time Status ECG 12 lead ECG [ECG] AM 0600 Y 12/20/16 06:00 Ordered EV carotid duplex imaging BI Routine Y 12/20/16 20:34 Completed EV echocardiogram w enhance Routine Y 12/20/16 20:34 Completed Date of admission: 12/19/16 18:11 Primary care physician: Elmo Arriaga Jr, MD Consults: 12/19/16 20:34 Consult to Operations And Maintenance Supervisor [CONS] Routine Comment: 12/19/16 23:08 Consult to Auto Tune Up Mechanic [CONS] Routine Reason for SW Consult: Discharge planning 12/21/16 08:28 Consult to Cardiology [CONS] Routine Comment: Consulting Provider: Cardiology Sari Reason for Consult: sycope/ collapse Call Completed: No Hospital course: Mr. Dubon is a 76 year old male - Time Spent with Patient Total time spent providing and/or coordinating discharge services: - Constitutional Vitals: Temp Pulse Resp BP Pulse Ox 97.5 F L 60 18 128/65 95 12/21/16 10:54 12/21/16 10:54 12/21/16 10:54 12/21/16 10:54 03/17/17 10:54 - Attending Attestation I examined this patient and my medical decision-making was reviewed with the Resident Physician on 12/21/16. I agree with the documented findings, disposition and treatment plan as described except to the extent set forth below. Mr. Dubon is feeling OK at this time. His orthostatics were positive today. Has received IV fluids. He is afebrile at this time. Denies pain. Exam Alert. Comfortable Heart reg Lungs clear Abd soft Plan Fluid bolus Reassess orthostatics Anticipate d/c later today.
[2016-12-22] MEDS ORDERED: Aspirin 81 MG TAB.CHEW PO SCH (09:00)
--- NOTE | 2016-12-23 16:06 | Carotid Imaging Report ---
Carotid Duplex Patient Name:José Miguel Dubon Order Number:[id number] Procedure Date:12/20/2016 Date:8Age:76 yrs Gender:Male Lt BP:115 / 73 mmHg Rt.BP:135 / 67 mmHgHeart Rate: Location:[facility] Room #: 2A32 Online Journalist:Franky Kerns RN Referring MD:Noah Coker MD logistics manager:Elmo Arriaga MD Reading MD:Malcolm Goode MD Primary Indications:Syncope Risk Factors Yes/No Smoking Current Yes Hypertension Yes Hypercholesterolemia Yes Anticoagulants Yes Hx of CAD/PTCA Yes Diabetes Yes Hx of TIA Yes Impressions: Findings: Bilateral carotid system has nonstenotic plaque. Recommendations: Test completed on 12/20/2016 at 9:45:00 am. Findings Carotid Duplex: Right: The right proximal common carotid artery has a PSV of 101 cm/s and a EDV of 19 cm/s. The right mid common carotid artery has a PSV of 134 cm/s and a EDV of 22 cm/s. There is nonstenotic plaque in the right distal common carotid artery with a PSV of 128 cm/s and a EDV of 25 cm/s. There is smooth heterogeneous plaque. There is nonstenotic plaque in the right bifurcation with a PSV of 105 cm/s and a EDV of 22 cm/s. There is smooth heterogeneous plaque. There is nonstenotic plaque in the right proximal internal carotid artery with a PSV of 87 cm/s and a EDV of 20 cm/s. There is smooth heterogeneous plaque. The right mid internal carotid artery has a PSV of 94 cm/s and a EDV of 33 cm/s. The right distal internal carotid artery has a PSV of 98 cm/s and a EDV of 26 cm/s. The right eca has a PSV of 135 cm/s and a EDV of 21 cm/s. The right vertebral artery has a PSV of 59 cm/s and a EDV of 17 cm/s. Left: The left proximal common carotid artery has a PSV of 99 cm/s and a EDV of 21 cm/s. There is nonstenotic plaque in the left mid common carotid artery with a PSV of 99 cm/s and a EDV of 22 cm/s. There is smooth heterogeneous plaque. There is nonstenotic plaque in the left distal common carotid artery with a PSV of 95 cm/s and a EDV of 22 cm/s. There is smooth heterogeneous plaque. There is nonstenotic plaque in the left bifurcation with a PSV of 78 cm/s and a EDV of 14 cm/s. There is smooth heterogeneous plaque. The left proximal internal carotid artery has a PSV of 88 cm/s and a EDV of 17 cm/s. The left mid internal carotid artery has a PSV of 96 cm/s and a EDV of 28 cm/s. The left distal internal carotid artery has a PSV of 94 cm/s and a EDV of 29 cm/s. The left eca has a PSV of 110 cm/s and a EDV of 14 cm/s. The left vertebral artery has a PSV of 41 cm/s and a EDV of 8 cm/s. Prior Study: No significant change compared to prior study dated: 08/15/2015. Carotid Results Right PSV EDV Assessment Proximal CCA 101 19 Normal Mid CCA 134 22 Normal Distal CCA 128 25 Non Stenotic Plaque Bifurcation 105 22 Non Stenotic Plaque Proximal ICA 87 20 Non Stenotic Plaque Mid ICA 94 33 Normal Distal ICA 98 26 Normal ECA 135 21 Normal Vertebral Artery 59 17 Normal Left PSV EDV Assessment Proximal CCA 99 21 Normal Mid CCA 99 22 Non Stenotic Plaque Distal CCA 95 22 Non Stenotic Plaque Bifurcation 78 14 Non Stenotic Plaque Proximal ICA 88 17 Normal Mid ICA 96 28 Normal Distal ICA 94 29 Normal ECA 110 14 Normal Vertebral Artery 41 8 Normal Ratio's Right ICA/CCA Ratio: 0.73 ICA/CCA Values: 98/134 Left ICA/CCA Ratio: 0.97 ICA/CCA Values: 96/99 Updated by Malcolm Goode MD on 12/23/2016 4:02:49 PM electronically signed on 12/23/2016 4:03:00 PM with status of Final
== END 2016-12-21 16:30 | disposition home or self-care (01) ==
LOC: 2ANU 12:20 → EMEROO 12:20 → 2ANU 20:20
PROVIDERS: ADMIT Internal Medicine; ATTEND Internal Medicine

== ENCOUNTER 2019-08-27 21:51 | Inpatient (IN) ==
[2019-08-27] MEDS ORDERED: Isovue-370 500 ML BOTTLE IVP ONE (22:13)
[2019-08-27] MEDS ORDERED: 0.9 % Sodium Chloride 1,000 ML IVC ONE (22:13)
[2019-08-27 22:50] LABS: Basophils % 0.2 %; Segmented Neutrophils % 88.7 %
[2019-08-27 22:51] LABS: Basophils # 0.1 K/mcL (0.0-0.2); Hematocrit 43.8 % (37.5-50.1); Hemoglobin 15.1 g/dL (12.9-16.9); Lymphocytes # 1.2 K/mcL (0.6-4.6); Mean Corpuscular HGB Conc 34.5 g/dL (31.6-35.5); Mean Corpuscular Hemoglobin 30.2 pg (28.0-33.3); Mean Corpuscular Volume 87.6 fL (83.0-100.0); Mean Platelet Volume 9.7 fL (9.4-12.4); Monocytes # 2.8 K/mcL (0.0-1.3); Monocytes % 7.1 %; Neutrophils # 34.4 K/mcL (1.6-8.9); Platelet Count 269 K/mcL (140-400); Red Cell Distribution Width 14.2 % (11.5-14.5)
[2019-08-27] MEDS ORDERED: Piperacillin/Tazobactam 3.375 GM in 0.9 % Sodium Chloride Mini Bag 100 ML IVPB ONE (22:55)
[2019-08-27 23:00] LABS: Prothrombin Time 10.9 Seconds (9.4-12.1); White Blood Count 38.8 K/mcL (4.3-11.1)
[2019-08-27 23:03] LABS: Activated Partial Thrombo Time 29.1 Seconds (26.0-36.0)
[2019-08-27] MEDS ORDERED: Azithromycin 500 MG in 0.9 % Sodium Chloride 250 ML IVPB ONE (23:03)
[2019-08-27 23:16] LABS: Alanine Aminotransferase 27 Units/L (7-52); Albumin 3.9 g/dL (3.5-5.7); Albumin/Globulin Ratio 1.6 (1.1-2.2); Alkaline Phosphatase 105 Units/L (34-104); Aspartate Amino Transferase 19 Units/L (13-39); BUN/Creatinine Ratio 22 (6-26); Bilirubin,Direct 0.2 mg/dL (0.0-0.2); Bilirubin,Indirect 0.8 mg/dL (0.0-1.0); Blood Urea Nitrogen 20 mg/dL (8-23); Calcium 9.2 mg/dL (8.6-10.3); Carbon Dioxide 23 mEq/L (23-29); Chloride 97 mEq/L (98-107); Globulin 2.4 g/dL (2.4-3.5); Glucose 102 mg/dL (70-105); Magnesium 1.5 mg/dL (1.6-2.6); Osmolality,Calculated 281 (280-300); Potassium 4.1 mEq/L (3.5-5.1); Sodium 134 mEq/L (136-145); Total Protein 6.3 g/dL (6.4-8.9); Troponin I < 0.03 ng/mL (< 0.04); eGFR For African Americans > 60 (> 60); eGFR For Non-African Americans > 60 (> 60)
[2019-08-27 23:28] LABS: Platelet Estimate Normal (Normal)
[2019-08-28] MEDS ORDERED: 0.9 % Sodium Chloride 1,000 ML IVC ONE (01:29)
[2019-08-28] MEDS ORDERED: *HR* Dextrose 50 % in Water (Syg) 50 ML SYRINGE IVP PRN (02:35)
[2019-08-28] MEDS ORDERED: Dextrose Gel 15 GM/37.5 ML TUBE PO PRN ×2 (02:35)
[2019-08-28] MEDS ORDERED: Acetaminophen 325 MG TABLET PO PRN (02:36)
[2019-08-28] MEDS ORDERED: Ipratropium/Albuterol Neb 3 ML IH PRN (02:36)
[2019-08-28 04:15] LABS: Basophils % 0.2 %; Immature Granulocytes % 0.9 % (0-4); Lymphocytes % 2.8 %
[2019-08-28 04:16] LABS: Basophils # 0.1 K/mcL (0.0-0.2); Hematocrit 40.5 % (37.5-50.1); Hemoglobin 13.1 g/dL (12.9-16.9); Lymphocytes # 1.3 K/mcL (0.6-4.6); Mean Corpuscular HGB Conc 32.3 g/dL (31.6-35.5); Mean Corpuscular Hemoglobin 29.8 pg (28.0-33.3); Mean Corpuscular Volume 92.3 fL (83.0-100.0); Mean Platelet Volume 9.7 fL (9.4-12.4); Monocytes # 3.3 K/mcL (0.0-1.3); Monocytes % 7.2 %; Neutrophils # 40.6 K/mcL (1.6-8.9); Platelet Count 250 K/mcL (140-400); Red Blood Count 4.39 M/mcL (4.19-5.50); Red Cell Distribution Width 13.9 % (11.5-14.5); Segmented Neutrophils % 88.9 %
[2019-08-28] MEDS: Ipratropium/Albuterol Neb 3 ML IH SCH ×2 (04:17→07:11)
[2019-08-28 04:24] LABS: BUN/Creatinine Ratio 21 (6-26); Blood Urea Nitrogen 20 mg/dL (8-23); Calcium 8.3 mg/dL (8.6-10.3); Carbon Dioxide 25 mEq/L (23-29); Chloride 102 mEq/L (98-107); Glucose 44 mg/dL (70-105); Osmolality,Calculated 280 (280-300); Potassium 3.8 mEq/L (3.5-5.1); Sodium 135 mEq/L (136-145); eGFR For African Americans > 60 (> 60); eGFR For Non-African Americans > 60 (> 60)
[2019-08-28] MEDS ORDERED: Magic Mouthwash 10 ML UD Cup PO PRN (04:24)
[2019-08-28] MEDS ORDERED: Loratadine 10 MG TABLET PO PRN (04:24)
[2019-08-28 04:26] LABS: White Blood Count 45.7 K/mcL (4.3-11.1)
[2019-08-28 04:45] LABS: Platelet Estimate Normal (Normal)
[2019-08-28] MEDS: Ringers Solution, Lactated 1,000 ML IVC SCH (04:59)
[2019-08-28 05:28] LABS: Adenovirus Not Detected (Not Detect); Bordetella Pertussis Not Detected (Not Detect); Chlamydophila pneumoniae Not Detected (Not Detect); Coronavirus 229E Not Detected (Not Detect); Coronavirus HKU1 Not Detected (Not Detect); Coronavirus NL63 Not Detected (Not Detect); Coronavirus OC43 Not Detected (Not Detect); Human Metapneumovirus Not Detected (Not Detect); Human Rhinovirus/Enterovirus Not Detected (Not Detect); Influenza A Subtype 2009 H1 Not Detected (Not Detect); Influenza A Untypeable Not Detected (Not Detect); Influenza B Not Detected (Not Detect); Mycoplasma pneumoniae Not Detected (Not Detect); Parainfluenza Virus 1 Not Detected (Not Detect); Parainfluenza Virus 2 Not Detected (Not Detect); Parainfluenza Virus 3 Not Detected (Not Detect); Parainfluenza Virus 4 Not Detected (Not Detect); Respiratory Syncytial Virus Not Detected (Not Detect)
[2019-08-28] MEDS: *HR* Heparin 5,000 UNIT/ML VIAL SQ SCH ×3 (06:18→21:04)
[2019-08-28] MEDS: Budesonide/Formoterol 160/4.5 1 PUFF INH IH SCH ×2 (07:45→20:35)
[2019-08-28] MEDS: FLUoxetine 20 MG CAPSULE PO SCH (08:57)
[2019-08-28] MEDS: Insulin LISPRO 300 UNITS/3 ML VIAL SQ SCH ×4 (08:57→21:01)
[2019-08-28] MEDS: Isosorbide MONOnitrate (24 HR) 30 MG TAB.ER.24H PO SCH (08:57)
[2019-08-28] MEDS: Piperacillin/Tazobactam 3.375 GM in 0.9 % Sodium Chloride Mini Bag 100 ML IVPB SCH ×3 (08:58→23:30)
[2019-08-28] MEDS ORDERED: D5% in 0.9% NACL 1,000 ML IVC SCH (12:00)
[2019-08-28] MEDS ORDERED: Propofol 500 MG/50 ML INFUS..BTL ONE (12:31)
[2019-08-28] MEDS ORDERED: Ondansetron 4 MG/2 ML VIAL ONE (12:31)
[2019-08-28] MEDS ORDERED: Dexamethasone 4 MG/ML VIAL ONE (12:31)
[2019-08-28] MEDS ORDERED: *HR* Propofol 200 MG/20 ML VIAL IVP ONE (12:31)
[2019-08-28] MEDS ORDERED: Lidocaine -MPF 2% 2 ML VIAL ONE (12:31)
[2019-08-28] MEDS ORDERED: *HR* FentaNYL (PF) 100 MCG/2 ML VIAL ONE (12:31)
[2019-08-28] MEDS ORDERED: Lidocaine -MPF 4% 5 ML AMPUL ONE (12:36)
[2019-08-28] MEDS ORDERED: *HR* PHENYLEPHRINE 1,000 MCG/10 ML SYRINGE IVP ONE ×2 (13:06→13:33)
[2019-08-28 14:29] LABS: Source of Body Fluid LLL BAL; Source of Body Fluid RLL BAL; Source of Body Fluid RML BAL
[2019-08-28] MEDS: predniSONE 5 MG TABLET PO SCH (15:25)
[2019-08-28] MEDS: predniSONE 10 MG TABLET PO SCH (15:25)
[2019-08-28 16:06] LABS: Appearance of Body Fluid Cloudy (Clear)
[2019-08-28 16:08] LABS: Appearance of Body Fluid Cloudy (Clear); Volume of Body Fluid 13 mL; Volume of Body Fluid 15 mL
[2019-08-28 16:09] LABS: Appearance of Body Fluid Slightly Hazy (Clear); Volume of Body Fluid 10 mL
[2019-08-28 21:43] LABS: Bilirubin,Urine Negative (Negative); Blood,Urine Negative (Negative); Clarity,Urine Clear (Clear); Color,Urine Yellow (Yellow); Glucose,Urine (UA) 500 mg/dL (Normal); Ketones,Urine Negative (Negative); Leukocyte Esterase,Urine Negative (Negative); Nitrite,Urine Negative (Negative); Protein,Urine Negative (Neg-Trace); Specific Gravity,Urine 1.019 (1.010-1.025); Urobilinogen,Urine Normal (Normal)
[2019-08-29 03:58] LABS: Hematocrit 36.3 % (37.5-50.1); Hemoglobin 11.6 g/dL (12.9-16.9); Mean Corpuscular Hemoglobin 29.4 pg (28.0-33.3); Mean Corpuscular Volume 92.1 fL (83.0-100.0); Mean Platelet Volume 10.1 fL (9.4-12.4); Platelet Count 197 K/mcL (140-400); Red Blood Count 3.94 M/mcL (4.19-5.50)
[2019-08-29 04:09] LABS: BUN/Creatinine Ratio 19 (6-26); Blood Urea Nitrogen 17 mg/dL (8-23); Calcium 8.1 mg/dL (8.6-10.3); Carbon Dioxide 24 mEq/L (23-29); Chloride 99 mEq/L (98-107); Glucose 482 mg/dL (70-105); Osmolality,Calculated 295 (280-300); Potassium 5.1 mEq/L (3.5-5.1); Sodium 131 mEq/L (136-145); eGFR For African Americans > 60 (> 60); eGFR For Non-African Americans > 60 (> 60)
[2019-08-29] MEDS: *HR* Heparin 5,000 UNIT/ML VIAL SQ SCH ×3 (05:16→21:26)
[2019-08-29] MEDS: Piperacillin/Tazobactam 3.375 GM in 0.9 % Sodium Chloride Mini Bag 100 ML IVPB SCH ×2 (07:52→17:39)
[2019-08-29] MEDS: Budesonide/Formoterol 160/4.5 1 PUFF INH IH SCH ×2 (07:55→20:29)
[2019-08-29] MEDS: predniSONE 10 MG TABLET PO SCH (08:00)
[2019-08-29] MEDS: predniSONE 5 MG TABLET PO SCH (08:00)
[2019-08-29] MEDS: Isosorbide MONOnitrate (24 HR) 30 MG TAB.ER.24H PO SCH (08:01)
[2019-08-29] MEDS: FLUoxetine 20 MG CAPSULE PO SCH (08:01)
[2019-08-29] MEDS: Insulin LISPRO 300 UNITS/3 ML VIAL SQ SCH ×4 (09:45→21:23)
[2019-08-29] MEDS: Insulin DETEMIR 100 UNIT/ML X5UNITS SQ SCH ×2 (09:46→21:26)
[2019-08-30] MEDS: Piperacillin/Tazobactam 3.375 GM in 0.9 % Sodium Chloride Mini Bag 100 ML IVPB SCH ×3 (00:38→16:59)
[2019-08-30 04:51] LABS: Hematocrit 36.7 % (37.5-50.1); Hemoglobin 12.1 g/dL (12.9-16.9); Mean Corpuscular Hemoglobin 29.7 pg (28.0-33.3); Mean Corpuscular Volume 90.2 fL (83.0-100.0); Mean Platelet Volume 9.9 fL (9.4-12.4); Platelet Count 212 K/mcL (140-400); Red Blood Count 4.07 M/mcL (4.19-5.50); Red Cell Distribution Width 14.1 % (11.5-14.5); White Blood Count 11.6 K/mcL (4.3-11.1)
[2019-08-30 05:20] LABS: BUN/Creatinine Ratio 22 (6-26); Blood Urea Nitrogen 17 mg/dL (8-23); Calcium 8.3 mg/dL (8.6-10.3); Carbon Dioxide 28 mEq/L (23-29); Chloride 103 mEq/L (98-107); Glucose 61 mg/dL (70-105); Osmolality,Calculated 283 (280-300); Potassium 3.7 mEq/L (3.5-5.1); Sodium 137 mEq/L (136-145); Vancomycin,Trough 6 mcg/mL (5-10); eGFR For African Americans > 60 (> 60); eGFR For Non-African Americans > 60 (> 60)
[2019-08-30] MEDS: *HR* Heparin 5,000 UNIT/ML VIAL SQ SCH ×3 (06:26→21:01)
[2019-08-30] MEDS: Budesonide/Formoterol 160/4.5 1 PUFF INH IH SCH ×2 (07:45→19:59)
[2019-08-30] MEDS: Insulin LISPRO 300 UNITS/3 ML VIAL SQ SCH ×4 (07:59→20:57)
[2019-08-30] MEDS: FLUoxetine 20 MG CAPSULE PO SCH (08:05)
[2019-08-30] MEDS: predniSONE 5 MG TABLET PO SCH (08:05)
[2019-08-30] MEDS: Isosorbide MONOnitrate (24 HR) 30 MG TAB.ER.24H PO SCH (08:05)
[2019-08-30] MEDS: predniSONE 10 MG TABLET PO SCH (08:05)
[2019-08-31] MEDS: Piperacillin/Tazobactam 3.375 GM in 0.9 % Sodium Chloride Mini Bag 100 ML IVPB SCH ×2 (00:40→09:32)
[2019-08-31 04:30] LABS: Hematocrit 36.8 % (37.5-50.1); Mean Corpuscular HGB Conc 32.6 g/dL (31.6-35.5); Mean Corpuscular Hemoglobin 29.4 pg (28.0-33.3); Mean Corpuscular Volume 90.2 fL (83.0-100.0); Mean Platelet Volume 9.8 fL (9.4-12.4); Platelet Count 213 K/mcL (140-400); Red Blood Count 4.08 M/mcL (4.19-5.50); Red Cell Distribution Width 14.2 % (11.5-14.5); White Blood Count 8.3 K/mcL (4.3-11.1)
[2019-08-31 04:46] LABS: BUN/Creatinine Ratio 15 (6-26); Blood Urea Nitrogen 12 mg/dL (8-23); Calcium 8.3 mg/dL (8.6-10.3); Carbon Dioxide 29 mEq/L (23-29); Chloride 99 mEq/L (98-107); Glucose 234 mg/dL (70-105); Osmolality,Calculated 287 (280-300); Sodium 135 mEq/L (136-145); eGFR For African Americans > 60 (> 60); eGFR For Non-African Americans > 60 (> 60)
[2019-08-31] MEDS: *HR* Heparin 5,000 UNIT/ML VIAL SQ SCH ×3 (06:18→22:10)
[2019-08-31] MEDS ORDERED: Aminoglycoside Consult 1 EACH MC ONE ×2 (07:59→08:00)
[2019-08-31] MEDS: Budesonide/Formoterol 160/4.5 1 PUFF INH IH SCH ×2 (08:00→20:26)
[2019-08-31] MEDS: Isosorbide MONOnitrate (24 HR) 30 MG TAB.ER.24H PO SCH (09:30)
[2019-08-31] MEDS: predniSONE 10 MG TABLET PO SCH (09:30)
[2019-08-31] MEDS: FLUoxetine 20 MG CAPSULE PO SCH (09:32)
[2019-08-31] MEDS: predniSONE 5 MG TABLET PO SCH (09:32)
[2019-08-31] MEDS: Insulin LISPRO 300 UNITS/3 ML VIAL SQ SCH ×4 (09:34→22:17)
[2019-08-31] MEDS ORDERED: *HR* Propofol 200 MG/20 ML VIAL IVP ONE (13:32)
[2019-08-31] MEDS: Ringers Solution, Lactated 1,000 ML IVC SCH (19:41)
[2019-08-31] MEDS: Insulin DETEMIR 100 UNIT/ML X5UNITS SQ SCH (22:17)
[2019-09-01] MEDS: *HR* Heparin 5,000 UNIT/ML VIAL SQ SCH ×2 (05:47→14:38)
[2019-09-01] MEDS: Budesonide/Formoterol 160/4.5 1 PUFF INH IH SCH (08:01)
[2019-09-01] MEDS: predniSONE 5 MG TABLET PO SCH (09:45)
[2019-09-01] MEDS: predniSONE 10 MG TABLET PO SCH (09:45)
[2019-09-01] MEDS: FLUoxetine 20 MG CAPSULE PO SCH (09:46)
[2019-09-01] MEDS: Isosorbide MONOnitrate (24 HR) 30 MG TAB.ER.24H PO SCH (09:46)
[2019-09-01] MEDS: Insulin DETEMIR 100 UNIT/ML X5UNITS SQ SCH (09:56)
[2019-09-01] MEDS: Insulin LISPRO 300 UNITS/3 ML VIAL SQ SCH ×3 (09:56→16:46)
[2019-09-01 10:17] LABS: Hemoglobin 12.1 g/dL (12.9-16.9); Mean Corpuscular HGB Conc 31.8 g/dL (31.6-35.5); Mean Corpuscular Hemoglobin 29.4 pg (28.0-33.3); Mean Corpuscular Volume 92.5 fL (83.0-100.0); Mean Platelet Volume 9.7 fL (9.4-12.4); Platelet Count 204 K/mcL (140-400); Red Blood Count 4.11 M/mcL (4.19-5.50); White Blood Count 6.5 K/mcL (4.3-11.1)
[2019-09-01 10:23] VITALS: BP 145/67
== END 2019-09-01 17:25 | disposition home or self-care (01) | DRG 871 ==
LOC: EMEROOARM 21:51 → 3ANU 21:51 → SUATTDRO 08-28 01:48 → 3ANU 08-28 03:03
PROVIDERS: ADMIT Internal Medicine; ATTEND Family Medicine

== ENCOUNTER 2019-11-22 16:45 | Observation (INO) ==
[2019-11-22] MEDS ORDERED: Isovue-370 500 ML BOTTLE IVP ONE (17:14)
[2019-11-22 17:41] LABS: Basophils % 0.2 %; Hematocrit 35.3 % (37.5-50.1); Hemoglobin 11.1 g/dL (12.9-16.9); Immature Granulocytes % 0.7 % (0-4); Lymphocytes # 0.6 K/mcL (0.6-4.6); Lymphocytes % 7.4 %; Mean Corpuscular HGB Conc 31.4 g/dL (31.6-35.5); Mean Corpuscular Hemoglobin 29.6 pg (28.0-33.3); Mean Corpuscular Volume 94.1 fL (83.0-100.0); Monocytes # 0.9 K/mcL (0.0-1.3); Monocytes % 10.4 %; Neutrophils # 6.7 K/mcL (1.6-8.9); Platelet Count 240 K/mcL (140-400); Red Blood Count 3.75 M/mcL (4.19-5.50); Red Cell Distribution Width 15.2 % (11.5-14.5); Segmented Neutrophils % 81.3 %; White Blood Count 8.3 K/mcL (4.3-11.1)
[2019-11-22 18:07] LABS: BUN/Creatinine Ratio 22 (6-26); Blood Urea Nitrogen 17 mg/dL (8-23); Calcium 8.2 mg/dL (8.6-10.3); Carbon Dioxide 23 mEq/L (23-29); Chloride 97 mEq/L (98-107); Glucose 501 mg/dL (70-105); Osmolality,Calculated 298 (280-300); Potassium 4.4 mEq/L (3.5-5.1); Sodium 132 mEq/L (136-145); eGFR For African Americans > 60 (> 60); eGFR For Non-African Americans > 60 (> 60)
[2019-11-22] MEDS ORDERED: 0.9 % Sodium Chloride 1,000 ML IVC ONE (18:35)
[2019-11-22] MEDS ORDERED: Ondansetron 4 MG/2 ML VIAL IVP PRN (20:17)
[2019-11-22] MEDS ORDERED: Naloxone 0.4 MG/ML INJ IVP PRN (20:17)
[2019-11-22] MEDS ORDERED: *HR* Dextrose 50 % in Water (Syg) 50 ML SYRINGE IVP PRN (20:19)
[2019-11-22] MEDS ORDERED: D5% in Water 1,000 ML IVC PRN (20:19)
[2019-11-22] MEDS ORDERED: Dextrose Gel 15 GM/37.5 ML TUBE PO PRN ×2 (20:19)
[2019-11-22] MEDS ORDERED: 0.9 % Sodium Chloride 1,000 ML IVC SCH (20:30)
[2019-11-22] MEDS ORDERED: Insulin DETEMIR 100 UNIT/ML X5UNITS SQ SCH (21:00)
[2019-11-22] MEDS: Insulin LISPRO 300 UNITS/3 ML VIAL SQ SCH ×2 (21:22→21:54)
[2019-11-22] MEDS: *HR* Heparin 5,000 UNIT/ML VIAL SQ SCH (21:53)
[2019-11-23] MEDS: Insulin LISPRO 300 UNITS/3 ML VIAL SQ SCH ×6 (00:26→17:32)
[2019-11-23] MEDS ORDERED: Albuterol 2.5 MG/3 ML NEBULIZER IH PRN (01:07)
[2019-11-23] MEDS: D5% in 0.9% NACL 1,000 ML IVC SCH ×2 (03:31→14:03)
[2019-11-23 03:46] LABS: Basophils % 0.4 %; Eosinophils % 0.3 %; Hematocrit 32.9 % (37.5-50.1); Hemoglobin 10.8 g/dL (12.9-16.9); Immature Granulocytes % 0.9 % (0-4); Lymphocytes # 1.4 K/mcL (0.6-4.6); Lymphocytes % 20.3 %; Mean Corpuscular HGB Conc 32.8 g/dL (31.6-35.5); Mean Corpuscular Hemoglobin 29.5 pg (28.0-33.3); Mean Corpuscular Volume 89.9 fL (83.0-100.0); Mean Platelet Volume 9.6 fL (9.4-12.4); Monocytes # 1.3 K/mcL (0.0-1.3); Monocytes % 19.4 %; Platelet Count 235 K/mcL (140-400); Red Blood Count 3.66 M/mcL (4.19-5.50); Red Cell Distribution Width 15.2 % (11.5-14.5); Segmented Neutrophils % 58.7 %; White Blood Count 6.9 K/mcL (4.3-11.1)
[2019-11-23 03:50] LABS: Neutrophils # 4.1 K/mcL (1.6-8.9)
[2019-11-23 04:02] LABS: Alanine Aminotransferase 20 Units/L (7-52); Albumin 3.1 g/dL (3.5-5.7); Albumin/Globulin Ratio 1.6 (1.1-2.2); Alkaline Phosphatase 76 Units/L (34-104); Aspartate Amino Transferase 16 Units/L (13-39); BUN/Creatinine Ratio 26 (6-26); Bilirubin,Total 0.6 mg/dL (0.3-1.0); Blood Urea Nitrogen 15 mg/dL (8-23); Calcium 8.1 mg/dL (8.6-10.3); Carbon Dioxide 29 mEq/L (23-29); Chloride 107 mEq/L (98-107); Glucose 38 mg/dL (70-105); Osmolality,Calculated 285 (280-300); Potassium 3.3 mEq/L (3.5-5.1); Sodium 139 mEq/L (136-145); Total Protein 5.1 g/dL (6.4-8.9); eGFR For African Americans > 60 (> 60); eGFR For Non-African Americans > 60 (> 60)
[2019-11-23 04:29] LABS: Platelet Estimate Normal (Normal)
[2019-11-23] MEDS: *HR* Heparin 5,000 UNIT/ML VIAL SQ SCH ×3 (06:25→21:32)
[2019-11-23] MEDS: Budesonide/Formoterol 160/4.5 1 PUFF INH IH SCH ×2 (07:55→19:57)
[2019-11-23] MEDS ORDERED: Insulin LISPRO 300 UNITS/3 ML VIAL SQ SCH ×2 (12:00→21:00)
[2019-11-24] MEDS: *HR* Heparin 5,000 UNIT/ML VIAL SQ SCH ×2 (06:07→13:34)
[2019-11-24] MEDS: D5% in 0.9% NACL 1,000 ML IVC SCH (07:19)
[2019-11-24] MEDS: Budesonide/Formoterol 160/4.5 1 PUFF INH IH SCH (07:30)
[2019-11-24] MEDS: Insulin LISPRO 300 UNITS/3 ML VIAL SQ SCH ×2 (08:01→11:39)
[2019-11-24] MEDS ORDERED: D5% in 0.9% NACL 1,000 ML IVC SCH (09:30)
[2019-11-24 11:06] LABS: BUN/Creatinine Ratio 10 (6-26); Blood Urea Nitrogen 7 mg/dL (8-23); Calcium 8.1 mg/dL (8.6-10.3); Carbon Dioxide 25 mEq/L (23-29); Chloride 100 mEq/L (98-107); Glucose 296 mg/dL (70-105); Osmolality,Calculated 293 (280-300); Sodium 137 mEq/L (136-145); eGFR For African Americans > 60 (> 60); eGFR For Non-African Americans > 60 (> 60)
[2019-11-24 11:12] LABS: Basophils % 0.5 %; Eosinophils % 0.2 %; Hematocrit 34.8 % (37.5-50.1); Hemoglobin 11.5 g/dL (12.9-16.9); Immature Granulocytes % 0.6 % (0-4); Lymphocytes # 0.8 K/mcL (0.6-4.6); Lymphocytes % 12.2 %; Mean Corpuscular Hemoglobin 29.9 pg (28.0-33.3); Mean Corpuscular Volume 90.6 fL (83.0-100.0); Mean Platelet Volume 9.9 fL (9.4-12.4); Monocytes # 1.2 K/mcL (0.0-1.3); Monocytes % 19.2 %; Neutrophils # 4.3 K/mcL (1.6-8.9); Platelet Count 241 K/mcL (140-400); Red Blood Count 3.84 M/mcL (4.19-5.50); Red Cell Distribution Width 15.1 % (11.5-14.5); Segmented Neutrophils % 67.3 %; White Blood Count 6.4 K/mcL (4.3-11.1)
[2019-11-24 11:13] LABS: Platelet Estimate Normal (Normal)
[2019-11-24 11:31] VITALS: BP 133/69
== END 2019-11-24 16:30 | disposition other institution (70) ==
LOC: EMEROOARM 16:45 → 2ANU 16:45 → SUATTDRO 20:50 → 2ANU 21:25
PROVIDERS: ADMIT Internal Medicine; ATTEND Student in an Organized Health Care Education/Training Program

== ENCOUNTER 2021-03-31 14:25 | Inpatient (IN) ==
[2021-03-31] MEDS ORDERED: *HR* Dextrose 50 % in Water (Vial) 50 ML VIAL IVP ONE (14:35)
[2021-03-31 15:35] LABS: Basophils # 0.1 K/mcL (0.0-0.2); Basophils % 0.7 %; Eosinophils % 0.4 %; Hematocrit 33.5 % (37.5-50.1); Hemoglobin 10.4 g/dL (12.9-16.9); Immature Granulocytes % 0.3 % (0-4); Lymphocytes # 0.8 K/mcL (0.6-4.6); Lymphocytes % 11.4 %; Mean Corpuscular Hemoglobin 27.4 pg (28.0-33.3); Mean Corpuscular Volume 88.4 fL (83.0-100.0); Mean Platelet Volume 10.1 fL (9.4-12.4); Monocytes # 1.1 K/mcL (0.0-1.3); Neutrophils # 4.8 K/mcL (1.6-8.9); Platelet Count 266 K/mcL (140-400); Red Blood Count 3.79 M/mcL (4.19-5.50); Red Cell Distribution Width 14.6 % (11.5-14.5); Segmented Neutrophils % 71.2 %; White Blood Count 6.7 K/mcL (4.3-11.1)
[2021-03-31 15:56] LABS: Calcium 8.3 mg/dL (8.6-10.3); Potassium 6.1 mEq/L (3.5-5.1)
[2021-03-31 16:26] LABS: Bilirubin,Urine Negative (Negative); Blood,Urine Moderate (Negative); Clarity,Urine Ex.Turbid (Clear); Color,Urine Yellow (Yellow); Glucose,Urine (UA) Normal (Normal); Ketones,Urine Negative (Negative); Leukocyte Esterase,Urine Large (Negative); Nitrite,Urine Negative (Negative); Protein,Urine 70 mg/dL (Neg-Trace); Specific Gravity,Urine 1.011 (1.010-1.025); Urobilinogen,Urine Normal (Normal); WBC,Urine TNTC per hpf (0-3)
[2021-03-31] MEDS ORDERED: Albuterol 2.5 MG/3 ML NEBULIZER IH ONE (16:54)
[2021-03-31 17:51] LABS: Magnesium 1.4 mg/dL (1.6-2.6)
[2021-03-31] MEDS ORDERED: Naloxone 0.4 MG/ML INJ IVP PRN (18:01)
[2021-03-31] MEDS ORDERED: 0.9 % Sodium Chloride 1,000 ML IVC ONE (18:01)
[2021-03-31] MEDS ORDERED: Dextrose Gel 15 GM/37.5 ML TUBE PO PRN ×2 (18:54)
[2021-03-31] MEDS ORDERED: D5% in Water 1,000 ML IVC PRN (18:54)
[2021-03-31] MEDS ORDERED: *HR* Dextrose 50 % in Water (Vial) 50 ML VIAL IVP PRN (18:54)
[2021-03-31] MEDS ORDERED: Loratadine 10 MG TABLET PO PRN (19:34)
[2021-03-31] MEDS: Calcium Gluconate 1gm/50mL 1 GM/50 ML BAG IVPB SCH ×2 (19:46→20:23)
[2021-03-31 19:50] LABS: Protein/Creatinine Ratio,Urine 2.15 mg/mg (0.00-0.20)
[2021-03-31] MEDS ORDERED: Insulin DETEMIR 100 UNIT/ML X5UNITS SUBQ SCH (21:00)
[2021-03-31] MEDS: Sodium Bicarbonate 75 MEQ in 0.45 % Sodium Chloride 1,000 ML IVC SCH (21:23)
[2021-03-31 21:38] LABS: Estimated Average Glucose 235 mg/dl; Hemoglobin A1C 9.8 %
[2021-03-31 22:02] LABS: Calcium 8.6 mg/dL (8.6-10.3); Potassium 6.8 mEq/L (3.5-5.1)
[2021-03-31] MEDS ORDERED: Calcium Gluconate 1gm/50mL 1 GM/50 ML BAG IVPB ONE (22:05)
[2021-03-31] MEDS ORDERED: Insulin Human Regular 10 UNIT in 0.9 % Sodium Chloride 10 ML IV ONE (22:22)
[2021-03-31] MEDS ORDERED: Insulin DETEMIR 100 UNIT/ML X5UNITS SUBQ ONE (22:23)
[2021-03-31] MEDS: Budesonide/Formoterol 160/4.5 1 PUFF INH IH SCH (22:40)
[2021-03-31] MEDS: Insulin LISPRO 300 UNITS/3 ML VIAL SUBQ SCH (23:29)
[2021-04-01] MEDS ORDERED: Insulin LISPRO 300 UNITS/3 ML VIAL SUBQ SCH
[2021-04-01 06:32] LABS: Basophils % 0.4 %; Eosinophils % 0.3 %; Hematocrit 29.5 % (37.5-50.1); Hemoglobin 9.2 g/dL (12.9-16.9); Immature Granulocytes % 0.3 % (0-4); Lymphocytes # 0.8 K/mcL (0.6-4.6); Lymphocytes % 11.9 %; Mean Corpuscular HGB Conc 31.2 g/dL (31.6-35.5); Mean Corpuscular Hemoglobin 27.2 pg (28.0-33.3); Mean Corpuscular Volume 87.3 fL (83.0-100.0); Mean Platelet Volume 9.6 fL (9.4-12.4); Monocytes # 1.2 K/mcL (0.0-1.3); Monocytes % 17.2 %; Neutrophils # 4.8 K/mcL (1.6-8.9); Platelet Count 230 K/mcL (140-400); Red Blood Count 3.38 M/mcL (4.19-5.50); Red Cell Distribution Width 14.6 % (11.5-14.5); Segmented Neutrophils % 69.9 %; White Blood Count 6.9 K/mcL (4.3-11.1)
[2021-04-01 06:58] LABS: Calcium 8.2 mg/dL (8.6-10.3); Magnesium 1.9 mg/dL (1.6-2.6); Phosphorous 6.3 mg/dL (2.7-4.5)
[2021-04-01] MEDS: Insulin LISPRO 300 UNITS/3 ML VIAL SUBQ SCH ×4 (07:02→22:09)
[2021-04-01] MEDS: Isosorbide MONOnitrate (24 HR) 30 MG TAB.ER.24H PO SCH (08:03)
[2021-04-01] MEDS: Cholecalciferol (D-3) 1,000 UNIT (25MCG) TABLET PO SCH (08:03)
[2021-04-01] MEDS: Finasteride 5 MG TABLET PO SCH (08:03)
[2021-04-01] MEDS: FLUoxetine 20 MG CAPSULE PO SCH (08:03)
[2021-04-01] MEDS: Sodium Bicarbonate 75 MEQ in 0.45 % Sodium Chloride 1,000 ML IVC SCH ×3 (08:04→17:24)
[2021-04-01] MEDS: Budesonide/Formoterol 160/4.5 1 PUFF INH IH SCH ×2 (10:08→21:59)
[2021-04-01] MEDS ORDERED: Nitroglycerin 0.4 MG TAB.SUBL SL PRN (16:41)
[2021-04-01] MEDS: Pantoprazole 40 MG VIAL IVP SCH (16:54)
[2021-04-01] MEDS: *HR* Heparin 5,000 UNIT/ML VIAL SQ SCH (17:25)
[2021-04-01] MEDS: Insulin DETEMIR 100 UNIT/ML X5UNITS SUBQ SCH (22:08)
[2021-04-02] MEDS: *HR* Heparin 5,000 UNIT/ML VIAL SQ SCH ×3 (01:33→17:29)
[2021-04-02 01:55] LABS: Basophils % 0.3 %; Eosinophils # 0.1 K/mcL (0.0-0.6); Eosinophils % 0.6 %; Hematocrit 26.9 % (37.5-50.1); Hemoglobin 8.5 g/dL (12.9-16.9); Immature Granulocytes % 0.3 % (0-4); Lymphocytes # 0.8 K/mcL (0.6-4.6); Lymphocytes % 8.8 %; Mean Corpuscular HGB Conc 31.6 g/dL (31.6-35.5); Mean Corpuscular Hemoglobin 27.1 pg (28.0-33.3); Mean Corpuscular Volume 85.7 fL (83.0-100.0); Mean Platelet Volume 9.8 fL (9.4-12.4); Monocytes # 1.3 K/mcL (0.0-1.3); Monocytes % 15.2 %; Neutrophils # 6.5 K/mcL (1.6-8.9); Platelet Count 204 K/mcL (140-400); Red Blood Count 3.14 M/mcL (4.19-5.50); Red Cell Distribution Width 14.6 % (11.5-14.5); Segmented Neutrophils % 74.8 %; White Blood Count 8.8 K/mcL (4.3-11.1)
[2021-04-02 02:15] LABS: Calcium 7.6 mg/dL (8.6-10.3); Magnesium 1.6 mg/dL (1.6-2.6); Potassium 4.5 mEq/L (3.5-5.1)
[2021-04-02] MEDS: Sodium Bicarbonate 75 MEQ in 0.45 % Sodium Chloride 1,000 ML IVC SCH ×2 (04:30→17:57)
[2021-04-02] MEDS: Insulin LISPRO 300 UNITS/3 ML VIAL SUBQ SCH ×4 (08:25→21:20)
[2021-04-02] MEDS: Finasteride 5 MG TABLET PO SCH (08:40)
[2021-04-02] MEDS: Isosorbide MONOnitrate (24 HR) 30 MG TAB.ER.24H PO SCH (08:40)
[2021-04-02] MEDS: Cholecalciferol (D-3) 1,000 UNIT (25MCG) TABLET PO SCH (08:42)
[2021-04-02] MEDS: FLUoxetine 20 MG CAPSULE PO SCH (08:43)
[2021-04-02] MEDS: Pantoprazole 40 MG VIAL IVP SCH (08:44)
[2021-04-02] MEDS: Budesonide/Formoterol 160/4.5 1 PUFF INH IH SCH ×2 (10:00→20:40)
[2021-04-02] MEDS: Insulin DETEMIR 100 UNIT/ML X5UNITS SUBQ SCH (21:25)
[2021-04-03] MEDS: *HR* Heparin 5,000 UNIT/ML VIAL SQ SCH ×3 (00:02→16:14)
[2021-04-03 03:25] LABS: Basophils % 0.4 %; Eosinophils # 0.1 K/mcL (0.0-0.6); Eosinophils % 0.7 %; Hematocrit 25.2 % (37.5-50.1); Hemoglobin 8.1 g/dL (12.9-16.9); Immature Granulocytes % 0.4 % (0-4); Mean Corpuscular HGB Conc 32.1 g/dL (31.6-35.5); Mean Corpuscular Hemoglobin 27.3 pg (28.0-33.3); Mean Corpuscular Volume 84.8 fL (83.0-100.0); Mean Platelet Volume 9.9 fL (9.4-12.4); Monocytes # 1.5 K/mcL (0.0-1.3); Monocytes % 17.5 %; Neutrophils # 5.8 K/mcL (1.6-8.9); Platelet Count 180 K/mcL (140-400); Red Blood Count 2.97 M/mcL (4.19-5.50); Red Cell Distribution Width 14.6 % (11.5-14.5); White Blood Count 8.3 K/mcL (4.3-11.1)
[2021-04-03 03:42] LABS: Calcium 6.9 mg/dL (8.6-10.3); Potassium 3.6 mEq/L (3.5-5.1)
[2021-04-03 04:07] LABS: Folate 8.1 ng/mL (3.0-16.0)
[2021-04-03] MEDS: Sodium Bicarbonate 75 MEQ in 0.45 % Sodium Chloride 1,000 ML IVC SCH (05:17)
[2021-04-03] MEDS: Insulin LISPRO 300 UNITS/3 ML VIAL SUBQ SCH ×4 (07:42→20:50)
[2021-04-03] MEDS: Budesonide/Formoterol 160/4.5 1 PUFF INH IH SCH ×2 (07:50→20:14)
[2021-04-03] MEDS: Finasteride 5 MG TABLET PO SCH (07:51)
[2021-04-03] MEDS: FLUoxetine 20 MG CAPSULE PO SCH (07:51)
[2021-04-03] MEDS: Pantoprazole 40 MG VIAL IVP SCH (07:52)
[2021-04-03] MEDS: Isosorbide MONOnitrate (24 HR) 30 MG TAB.ER.24H PO SCH (07:52)
[2021-04-03] MEDS: Cholecalciferol (D-3) 1,000 UNIT (25MCG) TABLET PO SCH (07:52)
[2021-04-03] MEDS ORDERED: Calcium Gluconate 1gm/50mL 1 GM/50 ML BAG IVPB ONE (16:10)
[2021-04-03 19:59] LABS: Lambda Qnt Free Light Chains 126.62 mg/L (5.71-26.30)
[2021-04-03] MEDS: Sennosides/Docusate Sodium TABLET PO SCH (20:56)
[2021-04-03] MEDS ORDERED: Insulin DETEMIR 100 UNIT/ML X5UNITS SUBQ SCH (21:00)
[2021-04-04] MEDS: *HR* Heparin 5,000 UNIT/ML VIAL SQ SCH ×3 (01:00→18:05)
[2021-04-04 01:29] LABS: Basophils % 0.4 %; Eosinophils # 0.1 K/mcL (0.0-0.6); Eosinophils % 0.7 %; Hematocrit 25.5 % (37.5-50.1); Hemoglobin 8.2 g/dL (12.9-16.9); Immature Granulocytes % 0.4 % (0-4); Lymphocytes # 0.9 K/mcL (0.6-4.6); Lymphocytes % 10.2 %; Mean Corpuscular HGB Conc 32.2 g/dL (31.6-35.5); Mean Corpuscular Hemoglobin 27.4 pg (28.0-33.3); Mean Corpuscular Volume 85.3 fL (83.0-100.0); Mean Platelet Volume 10.1 fL (9.4-12.4); Monocytes # 1.5 K/mcL (0.0-1.3); Monocytes % 16.1 %; Neutrophils # 6.6 K/mcL (1.6-8.9); Platelet Count 181 K/mcL (140-400); Red Blood Count 2.99 M/mcL (4.19-5.50); Red Cell Distribution Width 14.5 % (11.5-14.5); Segmented Neutrophils % 72.2 %; White Blood Count 9.2 K/mcL (4.3-11.1)
[2021-04-04 01:50] LABS: Albumin 2.7 g/dL (3.5-5.7); Albumin/Globulin Ratio 0.9 (1.1-2.2); Bilirubin,Total 0.3 mg/dL (0.3-1.0); Globulin 2.9 g/dL (2.4-3.5); Total Protein 5.6 g/dL (6.4-8.9)
[2021-04-04] MEDS: Sodium Bicarbonate 75 MEQ in 0.45 % Sodium Chloride 1,000 ML IVC SCH ×2 (03:07→14:26)
[2021-04-04] MEDS: Budesonide/Formoterol 160/4.5 1 PUFF INH IH SCH ×2 (07:24→20:30)
[2021-04-04] MEDS: Insulin LISPRO 300 UNITS/3 ML VIAL SUBQ SCH ×4 (07:29→20:51)
[2021-04-04] MEDS: Isosorbide MONOnitrate (24 HR) 30 MG TAB.ER.24H PO SCH (07:30)
[2021-04-04] MEDS: Finasteride 5 MG TABLET PO SCH (07:30)
[2021-04-04] MEDS: Sennosides/Docusate Sodium TABLET PO SCH ×2 (07:30→19:44)
[2021-04-04] MEDS: FLUoxetine 20 MG CAPSULE PO SCH (07:30)
[2021-04-04] MEDS: Cholecalciferol (D-3) 1,000 UNIT (25MCG) TABLET PO SCH (07:31)
[2021-04-04] MEDS: Pantoprazole 40 MG VIAL IVP SCH (07:31)
[2021-04-04] MEDS: Acetaminophen 325 MG TABLET PO PRN (07:32)
[2021-04-04 10:29] LABS: Kappa Qnt Free Light Chains 122.49 mg/L (3.30-19.40)
[2021-04-04] MEDS ORDERED: Calcium Gluconate 1gm/50mL 1 GM/50 ML BAG IVPB ONE (18:11)
[2021-04-04] MEDS: Ondansetron 4 MG/2 ML VIAL IVP PRN (20:54)
[2021-04-05] MEDS: *HR* Heparin 5,000 UNIT/ML VIAL SQ SCH ×3 (01:32→16:49)
[2021-04-05] MEDS: Acetaminophen 325 MG TABLET PO PRN (01:39)
[2021-04-05 01:56] LABS: Basophils % 0.5 %; Eosinophils # 0.1 K/mcL (0.0-0.6); Eosinophils % 1.2 %; Hemoglobin 8.1 g/dL (12.9-16.9); Immature Granulocytes % 0.5 % (0-4); Lymphocytes # 0.8 K/mcL (0.6-4.6); Lymphocytes % 9.4 %; Mean Corpuscular HGB Conc 32.4 g/dL (31.6-35.5); Mean Corpuscular Hemoglobin 27.9 pg (28.0-33.3); Mean Corpuscular Volume 86.2 fL (83.0-100.0); Mean Platelet Volume 10.3 fL (9.4-12.4); Monocytes # 0.9 K/mcL (0.0-1.3); Monocytes % 10.7 %; Neutrophils # 6.4 K/mcL (1.6-8.9); Platelet Count 178 K/mcL (140-400); Red Cell Distribution Width 14.5 % (11.5-14.5); Segmented Neutrophils % 77.7 %; White Blood Count 8.2 K/mcL (4.3-11.1)
[2021-04-05 02:15] LABS: Calcium 6.9 mg/dL (8.6-10.3); Potassium 4.4 mEq/L (3.5-5.1)
[2021-04-05] MEDS: Budesonide/Formoterol 160/4.5 1 PUFF INH IH SCH ×2 (07:30→20:08)
[2021-04-05] MEDS: FLUoxetine 20 MG CAPSULE PO SCH (09:35)
[2021-04-05] MEDS: Isosorbide MONOnitrate (24 HR) 30 MG TAB.ER.24H PO SCH (09:35)
[2021-04-05] MEDS: Finasteride 5 MG TABLET PO SCH (09:35)
[2021-04-05] MEDS: Cholecalciferol (D-3) 1,000 UNIT (25MCG) TABLET PO SCH (09:35)
[2021-04-05] MEDS: Sennosides/Docusate Sodium TABLET PO SCH ×2 (09:36→21:06)
[2021-04-05] MEDS: Multivit/Ca/Min/Fe/FA 1 TAB TABLET PO SCH (09:36)
[2021-04-05] MEDS: Insulin LISPRO 300 UNITS/3 ML VIAL SUBQ SCH ×5 (09:37→21:06)
[2021-04-05] MEDS: Insulin DETEMIR 100 UNIT/ML X5UNITS SUBQ SCH (21:08)
[2021-04-06 03:39] LABS: Basophils # 0.1 K/mcL (0.0-0.2); Basophils % 0.6 %; Eosinophils # 0.1 K/mcL (0.0-0.6); Eosinophils % 0.9 %; Hematocrit 24.7 % (37.5-50.1); Hemoglobin 7.8 g/dL (12.9-16.9); Immature Granulocytes % 0.4 % (0-4); Lymphocytes # 1.2 K/mcL (0.6-4.6); Lymphocytes % 10.8 %; Mean Corpuscular HGB Conc 31.6 g/dL (31.6-35.5); Mean Corpuscular Hemoglobin 27.6 pg (28.0-33.3); Mean Corpuscular Volume 87.3 fL (83.0-100.0); Mean Platelet Volume 10.3 fL (9.4-12.4); Monocytes # 1.1 K/mcL (0.0-1.3); Monocytes % 10.3 %; Neutrophils # 8.3 K/mcL (1.6-8.9); Platelet Count 205 K/mcL (140-400); Red Blood Count 2.83 M/mcL (4.19-5.50); Red Cell Distribution Width 14.5 % (11.5-14.5); White Blood Count 10.7 K/mcL (4.3-11.1)
[2021-04-06 03:53] LABS: Calcium 7.1 mg/dL (8.6-10.3); Magnesium 1.4 mg/dL (1.6-2.6); Potassium 3.7 mEq/L (3.5-5.1)
[2021-04-06] MEDS: *HR* Heparin 5,000 UNIT/ML VIAL SQ SCH ×3 (04:51→22:29)
[2021-04-06] MEDS ORDERED: Ferumoxytol 510 MG in 0.9 % Sodium Chloride 100 ML IVPB ONE (06:55)
[2021-04-06] MEDS: Budesonide/Formoterol 160/4.5 1 PUFF INH IH SCH ×2 (07:44→19:51)
[2021-04-06] MEDS: Insulin LISPRO 300 UNITS/3 ML VIAL SUBQ SCH ×4 (08:05→22:27)
[2021-04-06] MEDS: Acetaminophen 325 MG TABLET PO PRN ×2 (08:21→22:29)
[2021-04-06] MEDS: Sennosides/Docusate Sodium TABLET PO SCH ×2 (08:22→19:55)
[2021-04-06] MEDS: Multivit/Ca/Min/Fe/FA 1 TAB TABLET PO SCH (08:23)
[2021-04-06] MEDS: Finasteride 5 MG TABLET PO SCH (08:24)
[2021-04-06] MEDS: Cholecalciferol (D-3) 1,000 UNIT (25MCG) TABLET PO SCH (08:24)
[2021-04-06] MEDS: FLUoxetine 20 MG CAPSULE PO SCH (08:24)
[2021-04-06] MEDS: Isosorbide MONOnitrate (24 HR) 30 MG TAB.ER.24H PO SCH (08:26)
[2021-04-06] MEDS ORDERED: Magnesium Sulfate 1 GM/102 ML PIGGYBACK IVPB ONE (14:52)
[2021-04-06 15:28] LABS: Alpha 2 Globulin (PEP) 0.76 g/dL (0.48-1.05); Beta Globulin (PEP) 0.62 g/dL (0.48-1.10)
[2021-04-06] MEDS: Insulin DETEMIR 100 UNIT/ML X5UNITS SUBQ SCH (22:29)
[2021-04-07] MEDS: *HR* Heparin 5,000 UNIT/ML VIAL SQ SCH ×3 (05:04→21:38)
[2021-04-07 05:48] LABS: Albumin 2.9 g/dL (3.5-5.7); Bilirubin,Total 0.4 mg/dL (0.3-1.0); Calcium 7.6 mg/dL (8.6-10.3); Potassium 3.7 mEq/L (3.5-5.1); Total Protein 5.9 g/dL (6.4-8.9)
[2021-04-07] MEDS: Insulin LISPRO 300 UNITS/3 ML VIAL SUBQ SCH ×4 (07:33→19:54)
[2021-04-07] MEDS: Budesonide/Formoterol 160/4.5 1 PUFF INH IH SCH ×2 (07:35→20:36)
[2021-04-07] MEDS: Sennosides/Docusate Sodium TABLET PO SCH ×2 (08:48→21:38)
[2021-04-07] MEDS: Cholecalciferol (D-3) 1,000 UNIT (25MCG) TABLET PO SCH (08:49)
[2021-04-07] MEDS: Amoxicillin/Clavulanate 500 MG TABLET PO SCH (08:49)
[2021-04-07] MEDS: Finasteride 5 MG TABLET PO SCH (08:50)
[2021-04-07] MEDS: Multivit/Ca/Min/Fe/FA 1 TAB TABLET PO SCH (08:50)
[2021-04-07] MEDS: Isosorbide MONOnitrate (24 HR) 30 MG TAB.ER.24H PO SCH (08:51)
[2021-04-07] MEDS: FLUoxetine 20 MG CAPSULE PO SCH (08:56)
[2021-04-07 14:55] LABS: Hematocrit 27.5 % (37.5-50.1); Hemoglobin 8.4 g/dL (12.9-16.9); Mean Corpuscular HGB Conc 30.5 g/dL (31.6-35.5); Mean Corpuscular Hemoglobin 26.8 pg (28.0-33.3); Mean Corpuscular Volume 87.9 fL (83.0-100.0); Mean Platelet Volume 10.1 fL (9.4-12.4); Platelet Count 205 K/mcL (140-400); Red Blood Count 3.13 M/mcL (4.19-5.50); Red Cell Distribution Width 14.6 % (11.5-14.5); White Blood Count 9.9 K/mcL (4.3-11.1)
[2021-04-07 18:34] LABS: IFE Reflexed IFE Done; Immunoglobulin A 323 mg/dL (68-408); Immunoglobulin G 1543 mg/dL (768-1632); Immunoglobulin M 52 mg/dL (35-263)
[2021-04-07] MEDS: Insulin DETEMIR 100 UNIT/ML X5UNITS SUBQ SCH (21:38)
[2021-04-08] MEDS: *HR* Heparin 5,000 UNIT/ML VIAL SQ SCH ×3 (06:04→20:53)
[2021-04-08 07:08] LABS: Hematocrit 26.4 % (37.5-50.1); Hemoglobin 8.4 g/dL (12.9-16.9); Mean Corpuscular HGB Conc 31.8 g/dL (31.6-35.5); Mean Corpuscular Hemoglobin 27.8 pg (28.0-33.3); Mean Corpuscular Volume 87.4 fL (83.0-100.0); Mean Platelet Volume 10.4 fL (9.4-12.4); Platelet Count 189 K/mcL (140-400); Red Blood Count 3.02 M/mcL (4.19-5.50); Red Cell Distribution Width 14.6 % (11.5-14.5)
[2021-04-08 07:29] LABS: Calcium 7.7 mg/dL (8.6-10.3); Potassium 3.7 mEq/L (3.5-5.1)
[2021-04-08] MEDS: Insulin LISPRO 300 UNITS/3 ML VIAL SUBQ SCH ×4 (07:33→20:54)
[2021-04-08] MEDS: FLUoxetine 20 MG CAPSULE PO SCH (07:40)
[2021-04-08] MEDS: Sennosides/Docusate Sodium TABLET PO SCH ×2 (07:40→20:53)
[2021-04-08] MEDS: Isosorbide MONOnitrate (24 HR) 30 MG TAB.ER.24H PO SCH (07:40)
[2021-04-08] MEDS: Cholecalciferol (D-3) 1,000 UNIT (25MCG) TABLET PO SCH (07:40)
[2021-04-08] MEDS: Amoxicillin/Clavulanate 500 MG TABLET PO SCH (07:41)
[2021-04-08] MEDS: Multivit/Ca/Min/Fe/FA 1 TAB TABLET PO SCH (07:41)
[2021-04-08] MEDS: Finasteride 5 MG TABLET PO SCH (07:41)
[2021-04-08] MEDS: Budesonide/Formoterol 160/4.5 1 PUFF INH IH SCH ×2 (07:53→19:52)
[2021-04-08] MEDS: levoFLOXacin 500 MG/100 ML 500 MG/100 ML BAG IVPB SCH (20:52)
[2021-04-08] MEDS: Insulin DETEMIR 100 UNIT/ML X5UNITS SUBQ SCH (20:54)
[2021-04-08] MEDS: Acetaminophen 325 MG TABLET PO PRN (20:57)
[2021-04-09] MEDS: *HR* Heparin 5,000 UNIT/ML VIAL SQ SCH ×3 (05:40→22:02)
[2021-04-09] MEDS: Budesonide/Formoterol 160/4.5 1 PUFF INH IH SCH ×2 (07:40→20:00)
[2021-04-09] MEDS: Ondansetron 4 MG/2 ML VIAL IVP PRN (08:22)
[2021-04-09] MEDS: Multivit/Ca/Min/Fe/FA 1 TAB TABLET PO SCH (08:25)
[2021-04-09] MEDS: Sennosides/Docusate Sodium TABLET PO SCH ×2 (08:25→22:02)
[2021-04-09] MEDS: Isosorbide MONOnitrate (24 HR) 30 MG TAB.ER.24H PO SCH (08:25)
[2021-04-09] MEDS: FLUoxetine 20 MG CAPSULE PO SCH (08:25)
[2021-04-09] MEDS: Cholecalciferol (D-3) 1,000 UNIT (25MCG) TABLET PO SCH (08:25)
[2021-04-09] MEDS: Finasteride 5 MG TABLET PO SCH (08:26)
[2021-04-09] MEDS: Insulin LISPRO 300 UNITS/3 ML VIAL SUBQ SCH ×4 (08:27→22:01)
[2021-04-09 09:43] LABS: Hematocrit 30.2 % (37.5-50.1); Hemoglobin 8.8 g/dL (12.9-16.9); Mean Corpuscular HGB Conc 29.1 g/dL (31.6-35.5); Mean Corpuscular Hemoglobin 27.3 pg (28.0-33.3); Mean Platelet Volume 10.5 fL (9.4-12.4); Platelet Count 192 K/mcL (140-400); Red Blood Count 3.22 M/mcL (4.19-5.50); Red Cell Distribution Width 14.8 % (11.5-14.5); White Blood Count 7.1 K/mcL (4.3-11.1)
[2021-04-09 09:44] LABS: Mean Corpuscular Volume 93.8 fL (83.0-100.0)
[2021-04-09 10:04] LABS: Calcium 7.9 mg/dL (8.6-10.3); Magnesium 1.5 mg/dL (1.6-2.6); Potassium 4.4 mEq/L (3.5-5.1)
[2021-04-09] MEDS: Insulin DETEMIR 100 UNIT/ML X5UNITS SUBQ SCH (22:02)
[2021-04-09] MEDS: Acetaminophen 325 MG TABLET PO PRN (22:03)
[2021-04-10 00:47] LABS: Hematocrit 24.6 % (37.5-50.1); Hemoglobin 7.8 g/dL (12.9-16.9); Mean Corpuscular HGB Conc 31.7 g/dL (31.6-35.5); Mean Corpuscular Hemoglobin 27.9 pg (28.0-33.3); Mean Corpuscular Volume 87.9 fL (83.0-100.0); Mean Platelet Volume 10.2 fL (9.4-12.4); Platelet Count 207 K/mcL (140-400); Red Cell Distribution Width 14.4 % (11.5-14.5); White Blood Count 8.6 K/mcL (4.3-11.1)
[2021-04-10 01:09] LABS: Calcium 7.6 mg/dL (8.6-10.3); Magnesium 1.9 mg/dL (1.6-2.6); Potassium 3.4 mEq/L (3.5-5.1)
[2021-04-10] MEDS: *HR* Heparin 5,000 UNIT/ML VIAL SQ SCH ×3 (06:28→21:04)
[2021-04-10] MEDS: Budesonide/Formoterol 160/4.5 1 PUFF INH IH SCH ×2 (07:28→21:53)
[2021-04-10] MEDS: Insulin LISPRO 300 UNITS/3 ML VIAL SUBQ SCH ×4 (08:23→20:57)
[2021-04-10] MEDS: Sennosides/Docusate Sodium TABLET PO SCH ×2 (09:10→21:04)
[2021-04-10] MEDS: Multivit/Ca/Min/Fe/FA 1 TAB TABLET PO SCH (09:10)
[2021-04-10] MEDS: FLUoxetine 20 MG CAPSULE PO SCH (09:10)
[2021-04-10] MEDS: Cholecalciferol (D-3) 1,000 UNIT (25MCG) TABLET PO SCH (09:10)
[2021-04-10] MEDS: Finasteride 5 MG TABLET PO SCH (09:10)
[2021-04-10] MEDS: Isosorbide MONOnitrate (24 HR) 30 MG TAB.ER.24H PO SCH (09:10)
[2021-04-10] MEDS: levoFLOXacin 500 MG/100 ML 500 MG/100 ML BAG IVPB SCH (18:17)
[2021-04-10] MEDS: Insulin DETEMIR 100 UNIT/ML X5UNITS SUBQ SCH (21:04)
[2021-04-11 00:27] LABS: Hemoglobin 8.1 g/dL (12.9-16.9); Mean Corpuscular HGB Conc 32.4 g/dL (31.6-35.5); Mean Corpuscular Hemoglobin 28.5 pg (28.0-33.3); Platelet Count 195 K/mcL (140-400); Red Blood Count 2.84 M/mcL (4.19-5.50); Red Cell Distribution Width 14.6 % (11.5-14.5); White Blood Count 8.4 K/mcL (4.3-11.1)
[2021-04-11 00:34] LABS: Calcium 7.7 mg/dL (8.6-10.3); Potassium 3.4 mEq/L (3.5-5.1)
[2021-04-11] MEDS: *HR* Heparin 5,000 UNIT/ML VIAL SQ SCH ×3 (05:45→21:58)
[2021-04-11] MEDS: Budesonide/Formoterol 160/4.5 1 PUFF INH IH SCH ×2 (08:23→20:15)
[2021-04-11] MEDS ORDERED: Potassium Chloride Elixir 20 MEQ/15 ML UDC PO ONE (08:57)
[2021-04-11] MEDS: Isosorbide MONOnitrate (24 HR) 30 MG TAB.ER.24H PO SCH (10:54)
[2021-04-11] MEDS: Insulin LISPRO 300 UNITS/3 ML VIAL SUBQ SCH ×4 (10:54→21:56)
[2021-04-11] MEDS: Cholecalciferol (D-3) 1,000 UNIT (25MCG) TABLET PO SCH (10:55)
[2021-04-11] MEDS: Finasteride 5 MG TABLET PO SCH (10:55)
[2021-04-11] MEDS: FLUoxetine 20 MG CAPSULE PO SCH (10:55)
[2021-04-11] MEDS: Sennosides/Docusate Sodium TABLET PO SCH ×2 (10:55→21:59)
[2021-04-11] MEDS: Multivit/Ca/Min/Fe/FA 1 TAB TABLET PO SCH (10:55)
[2021-04-11] MEDS: Insulin DETEMIR 100 UNIT/ML X5UNITS SUBQ SCH (21:57)
[2021-04-12 04:31] LABS: Hematocrit 27.2 % (37.5-50.1); Hemoglobin 8.4 g/dL (12.9-16.9); Mean Corpuscular HGB Conc 30.9 g/dL (31.6-35.5); Mean Corpuscular Hemoglobin 28.2 pg (28.0-33.3); Mean Corpuscular Volume 91.3 fL (83.0-100.0); Mean Platelet Volume 10.4 fL (9.4-12.4); Platelet Count 187 K/mcL (140-400); Red Blood Count 2.98 M/mcL (4.19-5.50); Red Cell Distribution Width 14.6 % (11.5-14.5); White Blood Count 6.8 K/mcL (4.3-11.1)
[2021-04-12 04:59] LABS: Calcium 7.7 mg/dL (8.6-10.3); Potassium 5.4 mEq/L (3.5-5.1)
[2021-04-12] MEDS: *HR* Heparin 5,000 UNIT/ML VIAL SQ SCH ×4 (05:38→20:47)
[2021-04-12] MEDS: Budesonide/Formoterol 160/4.5 1 PUFF INH IH SCH ×2 (07:40→20:12)
[2021-04-12] MEDS: Ondansetron 4 MG/2 ML VIAL IVP PRN (08:08)
[2021-04-12] MEDS: Finasteride 5 MG TABLET PO SCH (09:07)
[2021-04-12] MEDS: Cholecalciferol (D-3) 1,000 UNIT (25MCG) TABLET PO SCH (09:07)
[2021-04-12] MEDS: Isosorbide MONOnitrate (24 HR) 30 MG TAB.ER.24H PO SCH (09:07)
[2021-04-12] MEDS: FLUoxetine 20 MG CAPSULE PO SCH (09:07)
[2021-04-12] MEDS: Multivit/Ca/Min/Fe/FA 1 TAB TABLET PO SCH (09:07)
[2021-04-12] MEDS: Insulin LISPRO 300 UNITS/3 ML VIAL SUBQ SCH ×4 (09:08→20:55)
[2021-04-12] MEDS: Sennosides/Docusate Sodium TABLET PO SCH ×2 (09:08→20:47)
[2021-04-12 10:04] LABS: Calcium 8.4 mg/dL (8.6-10.3); Potassium 5.4 mEq/L (3.5-5.1)
[2021-04-12 19:47] LABS: Estimated Average Glucose 232 mg/dl; Hemoglobin A1C 9.7 %
[2021-04-12] MEDS: metroNIDAZOLE 500 MG TABLET PO SCH (20:47)
[2021-04-12] MEDS: Insulin DETEMIR 100 UNIT/ML X5UNITS SUBQ SCH (20:48)
[2021-04-12] MEDS: levoFLOXacin 500 MG/100 ML 500 MG/100 ML BAG IVPB SCH (20:49)
[2021-04-13] MEDS: Insulin LISPRO 300 UNITS/3 ML VIAL SUBQ SCH ×5 (00:21→16:41)
[2021-04-13 03:55] LABS: Hematocrit 25.5 % (37.5-50.1); Hemoglobin 7.8 g/dL (12.9-16.9); Mean Corpuscular HGB Conc 30.6 g/dL (31.6-35.5); Mean Corpuscular Hemoglobin 27.2 pg (28.0-33.3); Mean Corpuscular Volume 88.9 fL (83.0-100.0); Mean Platelet Volume 10.1 fL (9.4-12.4); Platelet Count 230 K/mcL (140-400); Red Blood Count 2.87 M/mcL (4.19-5.50); Red Cell Distribution Width 14.6 % (11.5-14.5)
[2021-04-13 04:10] LABS: White Blood Count 10.6 K/mcL (4.3-11.1)
[2021-04-13 04:35] LABS: Calcium 8.1 mg/dL (8.6-10.3); Potassium 3.7 mEq/L (3.5-5.1)
[2021-04-13] MEDS: *HR* Heparin 5,000 UNIT/ML VIAL SQ SCH ×2 (06:09→15:39)
[2021-04-13] MEDS: Budesonide/Formoterol 160/4.5 1 PUFF INH IH SCH (07:41)
[2021-04-13] MEDS: metroNIDAZOLE 500 MG TABLET PO SCH ×2 (08:03→16:41)
[2021-04-13] MEDS: Sennosides/Docusate Sodium TABLET PO SCH (08:03)
[2021-04-13] MEDS: Isosorbide MONOnitrate (24 HR) 30 MG TAB.ER.24H PO SCH (08:03)
[2021-04-13] MEDS: FLUoxetine 20 MG CAPSULE PO SCH (08:03)
[2021-04-13] MEDS: Multivit/Ca/Min/Fe/FA 1 TAB TABLET PO SCH ×2 (08:04→08:09)
[2021-04-13] MEDS: Finasteride 5 MG TABLET PO SCH (08:04)
[2021-04-13] MEDS: Cholecalciferol (D-3) 1,000 UNIT (25MCG) TABLET PO SCH (08:04)
[2021-04-13 14:44] VITALS: BP 148/69
[2021-04-13 17:47] LABS: Adenovirus Not Detected (Not Detect); Bordetella Pertussis Not Detected (Not Detect); Chlamydophila pneumoniae Not Detected (Not Detect); Coronavirus 229E Not Detected (Not Detect); Coronavirus HKU1 Not Detected (Not Detect); Coronavirus NL63 Not Detected (Not Detect); Coronavirus OC43 Not Detected (Not Detect); Human Metapneumovirus Not Detected (Not Detect); Human Rhinovirus/Enterovirus Not Detected (Not Detect); Influenza A Subtype 2009 H1 Not Detected (Not Detect); Influenza B Not Detected (Not Detect); Mycoplasma pneumoniae Not Detected (Not Detect); Parainfluenza Virus 1 Not Detected (Not Detect); Parainfluenza Virus 2 Not Detected (Not Detect); Parainfluenza Virus 3 Not Detected (Not Detect); Parainfluenza Virus 4 Not Detected (Not Detect); Respiratory Syncytial Virus Not Detected (Not Detect); SARS-CoV-2 Not Detected (Not Detect)
[2021-04-13] MEDS ORDERED: Insulin LISPRO 300 UNITS/3 ML VIAL SUBQ ONE (18:14)
== END 2021-04-13 19:21 | disposition other institution (70) | DRG 682 ==
LOC: EMEROOARM 14:25 → 2NENU 14:25 → SUATTDRO 17:41 → 2NENU 18:56 → SUATTDRO 04-02 17:15
PROVIDERS: ADMIT Internal Medicine; ATTEND Internal Medicine

== ENCOUNTER 2021-04-22 08:46 | Inpatient (IN) ==
[2021-04-22] MEDS ORDERED: Ondansetron 4 MG/2 ML VIAL IVP PRN (11:16)
[2021-04-22] MEDS ORDERED: Naloxone 0.4 MG/ML INJ IVP PRN (11:16)
[2021-04-22] MEDS ORDERED: Insulin Regular, Human 100 UNIT/ML IV ONE (11:21)
[2021-04-22] MEDS ORDERED: D5% in 0.45% NACL 1,000 ML IVC PRN (11:21)
[2021-04-22] MEDS ORDERED: Insulin Regular, Human 100 UNIT/ML IV PRN (11:21)
[2021-04-22] MEDS ORDERED: Calcium Gluconate 1gm/50mL 1 GM/50 ML BAG IVPB ONE ×2 (11:45→12:45)
[2021-04-22 12:05] LABS: Red Blood Count 2.78 M/mcL (4.19-5.50)
[2021-04-22 12:07] LABS: Hemoglobin 7.8 g/dL (12.9-16.9); Mean Corpuscular HGB Conc 28.9 g/dL (31.6-35.5); Mean Corpuscular Hemoglobin 28.1 pg (28.0-33.3); Mean Corpuscular Volume 97.1 fL (83.0-100.0); Mean Platelet Volume 9.9 fL (9.4-12.4); Platelet Count 340 K/mcL (140-400); Red Cell Distribution Width 15.5 % (11.5-14.5); White Blood Count 11.4 K/mcL (4.3-11.1)
[2021-04-22 12:13] LABS: INR 0.9; Prothrombin Time 10.9 Seconds (9.4-12.1)
[2021-04-22 12:15] LABS: VBG HCO3 16 mEq/L (21-27); VBG PCO2 36 mmHg (41-51); VBG PH 7.26 pH Units (7.32-7.42); VBG PO2 78 mmHg (25-50)
[2021-04-22] MEDS: 0.9 % Sodium Chloride 1,000 ML IVC SCH ×2 (12:15→13:24)
[2021-04-22 12:27] LABS: Magnesium 2.4 mg/dL (1.6-2.6); Phosphorous 3.8 mg/dL (2.7-4.5)
[2021-04-22 12:41] LABS: Troponin I 0.21 ng/mL (< 0.04)
[2021-04-22 12:41] LABS: Calcium 8.5 mg/dL (8.6-10.3); Potassium 5.5 mEq/L (3.5-5.1)
[2021-04-22 12:47] LABS: Basophils # 0.1 K/mcL (0.0-0.2); Lymphocytes # 0.9 K/mcL (0.6-4.6); Monocytes # 2.5 K/mcL (0.0-1.3); Neutrophils # 7.9 K/mcL (1.6-8.9); Platelet Estimate Normal (Normal)
[2021-04-22 16:04] LABS: Hemoglobin 7.5 g/dL (12.9-16.9)
[2021-04-22 16:06] LABS: VBG HCO3 20 mEq/L (21-27); VBG PCO2 42 mmHg (41-51); VBG PH 7.29 pH Units (7.32-7.42); VBG PO2 105 mmHg (25-50)
[2021-04-22] MEDS ORDERED: Ipratropium/Albuterol Neb 3 ML IH PRN (16:28)
[2021-04-22 16:38] LABS: Calcium 8.2 mg/dL (8.6-10.3); Potassium 4.9 mEq/L (3.5-5.1)
[2021-04-22] MEDS ORDERED: Dextrose Gel 15 GM/37.5 ML TUBE PO PRN ×2 (17:51)
[2021-04-22] MEDS ORDERED: D5% in Water 1,000 ML IVC PRN (17:51)
[2021-04-22] MEDS ORDERED: *HR* Dextrose 50 % in Water (Vial) 50 ML VIAL IVP PRN (17:51)
[2021-04-22] MEDS: Ringers Solution, Lactated 1,000 ML IVC SCH (18:05)
[2021-04-22] MEDS: Insulin DETEMIR 100 UNIT/ML X5UNITS SUBQ SCH ×2 (18:05→21:34)
[2021-04-22] MEDS: Insulin LISPRO 300 UNITS/3 ML VIAL SUBQ SCH (21:34)
[2021-04-22] MEDS ORDERED: *HR* Heparin 5,000 UNIT/ML VIAL IVP PRN ×2 (23:30)
[2021-04-22] MEDS ORDERED: *HR* Heparin 5,000 UNIT/ML VIAL IVP ONE (23:30)
[2021-04-22 23:37] LABS: Bacteria,Urine Few per hpf (None-Few); Bilirubin,Urine Negative (Negative); Blood,Urine Small (Negative); Clarity,Urine Turbid (Clear); Color,Urine Light-Yellow (Yellow); Glucose,Urine (UA) 150 mg/dL (Normal); Ketones,Urine Negative (Negative); Leukocyte Esterase,Urine Large (Negative); Mucus,Urine Few per lpf (None-Few); Nitrite,Urine Negative (Negative); Protein,Urine 30 mg/dL (Neg-Trace); RBC,Urine 30-50 per hpf (0-3); Urobilinogen,Urine Normal (Normal); WBC,Urine 50-100 per hpf (0-3)
[2021-04-23 00:27] LABS: Heparin anti-factor XA UFH < 0.04 IU/mL (0.30-0.70)
[2021-04-23 00:28] LABS: INR 0.9; Prothrombin Time 10.8 Seconds (9.4-12.1)
[2021-04-23 02:23] LABS: Basophils % 0.2 %; Eosinophils % 0.2 %; Hematocrit 23.3 % (37.5-50.1); Hemoglobin 7.2 g/dL (12.9-16.9); Immature Granulocytes % 0.2 % (0-4); Lymphocytes # 1.3 K/mcL (0.6-4.6); Lymphocytes % 10.6 %; Mean Corpuscular HGB Conc 30.9 g/dL (31.6-35.5); Mean Corpuscular Hemoglobin 27.8 pg (28.0-33.3); Mean Platelet Volume 9.9 fL (9.4-12.4); Monocytes # 1.8 K/mcL (0.0-1.3); Monocytes % 14.4 %; Neutrophils # 9.3 K/mcL (1.6-8.9); Platelet Count 305 K/mcL (140-400); Red Blood Count 2.59 M/mcL (4.19-5.50); Red Cell Distribution Width 15.6 % (11.5-14.5); Segmented Neutrophils % 74.4 %; White Blood Count 12.5 K/mcL (4.3-11.1)
[2021-04-23] MEDS: Heparin 25,000UNIT/250ML 1/2NS 25,000 UNIT/250 ML IV.SOLN IVC SCH (02:43)
[2021-04-23] MEDS ORDERED: Perflutren Lipid Microsphere 1.3 ML in 0.9 % Sodium Chloride 8.7 ML IVP PRN (05:42)
[2021-04-23] MEDS: *HR* Dextrose 50 % in Water (Vial) 50 ML VIAL IVP PRN ×2 (06:11→06:21)
[2021-04-23 07:28] LABS: Calcium 7.9 mg/dL (8.6-10.3); Potassium 4.3 mEq/L (3.5-5.1)
[2021-04-23 07:35] LABS: Troponin I 3.86 ng/mL (< 0.04)
[2021-04-23] MEDS: Insulin LISPRO 300 UNITS/3 ML VIAL SUBQ SCH ×4 (08:20→19:58)
[2021-04-23] MEDS: Metoprolol XL (24 HR) Succ 25 MG TAB.ER.24H PO SCH ×2 (08:21→19:55)
[2021-04-23 08:45] LABS: Basophils % 0.2 %; Eosinophils % 0.1 %; Hematocrit 24.6 % (37.5-50.1); Hemoglobin 7.5 g/dL (12.9-16.9); Immature Granulocytes % 0.4 % (0-4); Lymphocytes # 0.8 K/mcL (0.6-4.6); Lymphocytes % 5.3 %; Mean Corpuscular HGB Conc 30.5 g/dL (31.6-35.5); Mean Corpuscular Hemoglobin 27.9 pg (28.0-33.3); Mean Corpuscular Volume 91.4 fL (83.0-100.0); Mean Platelet Volume 9.8 fL (9.4-12.4); Monocytes % 12.9 %; Neutrophils # 12.7 K/mcL (1.6-8.9); Platelet Count 294 K/mcL (140-400); Red Blood Count 2.69 M/mcL (4.19-5.50); Red Cell Distribution Width 15.9 % (11.5-14.5); Segmented Neutrophils % 81.1 %; White Blood Count 15.7 K/mcL (4.3-11.1)
[2021-04-23] MEDS: Ringers Solution, Lactated 1,000 ML IVC SCH ×2 (15:10→15:51)
[2021-04-23] MEDS ORDERED: Nitroglycerin 0.4 MG TAB.SUBL SL PRN (15:45)
[2021-04-23] MEDS: Acetaminophen 325 MG TABLET PO PRN (19:55)
[2021-04-23] MEDS: Insulin DETEMIR 100 UNIT/ML X5UNITS SUBQ SCH (19:58)
[2021-04-23] MEDS ORDERED: Insulin DETEMIR 100 UNIT/ML X5UNITS SUBQ SCH (21:00)
[2021-04-23] MEDS: Budesonide/Formoterol 160/4.5 1 PUFF INH IH SCH (23:00)
[2021-04-24] MEDS: Ringers Solution, Lactated 1,000 ML IVC SCH ×2 (01:20→09:58)
[2021-04-24 04:26] LABS: Calcium 7.8 mg/dL (8.6-10.3); Potassium 4.9 mEq/L (3.5-5.1)
[2021-04-24 04:28] LABS: Basophils % 0.2 %; Eosinophils % 0.2 %; Hematocrit 23.5 % (37.5-50.1); Hemoglobin 7.5 g/dL (12.9-16.9); Immature Granulocytes % 0.2 % (0-4); Lymphocytes % 7.7 %; Mean Corpuscular HGB Conc 31.9 g/dL (31.6-35.5); Mean Corpuscular Hemoglobin 28.5 pg (28.0-33.3); Mean Corpuscular Volume 89.4 fL (83.0-100.0); Mean Platelet Volume 10.1 fL (9.4-12.4); Monocytes % 20.8 %; Neutrophils # 9.4 K/mcL (1.6-8.9); Platelet Count 269 K/mcL (140-400); Red Blood Count 2.63 M/mcL (4.19-5.50); Red Cell Distribution Width 15.9 % (11.5-14.5); Segmented Neutrophils % 70.9 %; White Blood Count 13.2 K/mcL (4.3-11.1)
[2021-04-24 04:33] LABS: Monocytes # 2.8 K/mcL (0.0-1.3)
[2021-04-24] MEDS: Budesonide/Formoterol 160/4.5 1 PUFF INH IH SCH ×2 (07:37→20:04)
[2021-04-24] MEDS ORDERED: Sennosides/Docusate Sodium TABLET PO ONE (08:48)
[2021-04-24] MEDS ORDERED: Sennosides/Docusate Sodium TABLET PO PRN (08:49)
[2021-04-24] MEDS ORDERED: NON-FORMULARY MEDICATION 1 EACH EACH (Pantoprazole Sodium 20 MG Tablet.Dr) PO SCH (09:00)
[2021-04-24] MEDS: FLUoxetine 20 MG CAPSULE PO SCH (09:19)
[2021-04-24] MEDS: Cholecalciferol (D-3) 1,000 UNIT (25MCG) TABLET PO SCH (09:19)
[2021-04-24] MEDS: Metoprolol XL (24 HR) Succ 25 MG TAB.ER.24H PO SCH ×2 (09:20→21:12)
[2021-04-24] MEDS: Isosorbide MONOnitrate (24 HR) 30 MG TAB.ER.24H PO SCH (09:20)
[2021-04-24] MEDS: Fluticasone Propionate Nasal 50 MCG/SPRAY BOTTLE NS SCH (09:20)
[2021-04-24] MEDS: Finasteride 5 MG TABLET PO SCH (09:20)
[2021-04-24] MEDS: Insulin LISPRO 300 UNITS/3 ML VIAL SUBQ SCH ×4 (09:20→21:13)
[2021-04-24] MEDS: Heparin 25,000UNIT/250ML 1/2NS 25,000 UNIT/250 ML IV.SOLN IVC SCH (09:21)
[2021-04-24] MEDS: Insulin DETEMIR 100 UNIT/ML X5UNITS SUBQ SCH ×2 (09:21→21:12)
[2021-04-24] MEDS ORDERED: polyethylene glycoL 3350 17 GM POWD.PACK PO PRN (12:19)
[2021-04-25 01:22] LABS: Basophils % 0.2 %; Eosinophils % 0.3 %; Hematocrit 21.5 % (37.5-50.1); Hemoglobin 6.9 g/dL (12.9-16.9); Immature Granulocytes % 0.3 % (0-4); Lymphocytes # 0.9 K/mcL (0.6-4.6); Lymphocytes % 9.1 %; Mean Corpuscular HGB Conc 32.1 g/dL (31.6-35.5); Mean Corpuscular Hemoglobin 28.8 pg (28.0-33.3); Mean Corpuscular Volume 89.6 fL (83.0-100.0); Mean Platelet Volume 10.2 fL (9.4-12.4); Monocytes # 1.9 K/mcL (0.0-1.3); Monocytes % 19.5 %; Neutrophils # 6.7 K/mcL (1.6-8.9); Platelet Count 223 K/mcL (140-400); Red Cell Distribution Width 15.8 % (11.5-14.5); Segmented Neutrophils % 70.6 %; White Blood Count 9.5 K/mcL (4.3-11.1)
[2021-04-25 01:43] LABS: Calcium 7.7 mg/dL (8.6-10.3); Potassium 4.7 mEq/L (3.5-5.1)
[2021-04-25 01:44] LABS: Platelet Estimate Normal (Normal)
[2021-04-25] MEDS: Heparin 25,000UNIT/250ML 1/2NS 25,000 UNIT/250 ML IV.SOLN IVC SCH (03:26)
[2021-04-25] MEDS: Insulin LISPRO 300 UNITS/3 ML VIAL SUBQ SCH ×4 (07:42→19:42)
[2021-04-25] MEDS: Cholecalciferol (D-3) 1,000 UNIT (25MCG) TABLET PO SCH (07:43)
[2021-04-25] MEDS: FLUoxetine 20 MG CAPSULE PO SCH (07:43)
[2021-04-25] MEDS: Isosorbide MONOnitrate (24 HR) 30 MG TAB.ER.24H PO SCH (07:43)
[2021-04-25] MEDS: Finasteride 5 MG TABLET PO SCH (07:43)
[2021-04-25] MEDS: Fluticasone Propionate Nasal 50 MCG/SPRAY BOTTLE NS SCH (07:45)
[2021-04-25] MEDS: Budesonide/Formoterol 160/4.5 1 PUFF INH IH SCH ×2 (07:50→21:36)
[2021-04-25] MEDS: Metoprolol XL (24 HR) Succ 25 MG TAB.ER.24H PO SCH ×2 (07:52→19:34)
[2021-04-25] MEDS: Insulin DETEMIR 100 UNIT/ML X5UNITS SUBQ SCH (07:53)
[2021-04-25 14:27] LABS: Hematocrit 23.1 % (37.5-50.1); Hemoglobin 7.1 g/dL (12.9-16.9)
[2021-04-25] MEDS: *HR* Heparin 5,000 UNIT/ML VIAL SQ SCH (17:13)
[2021-04-25 18:14] LABS: % Iron Saturation 8 % (20-55); Iron 16 mcg/dL (65-175); Transferrin 151 mg/dL (203-362)
[2021-04-25 18:29] LABS: Ferritin 495 ng/mL (20-250)
[2021-04-25 18:34] LABS: Folate 7.7 ng/mL (3.0-16.0)
[2021-04-25] MEDS ORDERED: Ferumoxytol 510 MG in 0.9 % Sodium Chloride 100 ML IVPB ONE (18:53)
[2021-04-25] MEDS: Cyanocobalamin (B-12) 1,000 MCG/ML VIAL IM SCH (19:35)
[2021-04-26 02:23] LABS: Hematocrit 25.4 % (37.5-50.1); Hemoglobin 7.8 g/dL (12.9-16.9); Mean Corpuscular HGB Conc 30.7 g/dL (31.6-35.5); Mean Corpuscular Hemoglobin 28.6 pg (28.0-33.3); Mean Platelet Volume 10.3 fL (9.4-12.4); Platelet Count 246 K/mcL (140-400); Red Blood Count 2.73 M/mcL (4.19-5.50); Red Cell Distribution Width 16.1 % (11.5-14.5); White Blood Count 11.6 K/mcL (4.3-11.1)
[2021-04-26 02:41] LABS: Calcium 7.8 mg/dL (8.6-10.3); Potassium 5.2 mEq/L (3.5-5.1)
[2021-04-26] MEDS: *HR* Heparin 5,000 UNIT/ML VIAL SQ SCH ×2 (04:33→16:53)
[2021-04-26] MEDS: Budesonide/Formoterol 160/4.5 1 PUFF INH IH SCH ×2 (07:35→20:13)
[2021-04-26] MEDS: Cholecalciferol (D-3) 1,000 UNIT (25MCG) TABLET PO SCH (07:40)
[2021-04-26] MEDS: FLUoxetine 20 MG CAPSULE PO SCH (07:40)
[2021-04-26] MEDS: Finasteride 5 MG TABLET PO SCH (07:40)
[2021-04-26] MEDS: Isosorbide MONOnitrate (24 HR) 30 MG TAB.ER.24H PO SCH (07:40)
[2021-04-26] MEDS: Metoprolol XL (24 HR) Succ 25 MG TAB.ER.24H PO SCH ×2 (07:40→20:28)
[2021-04-26] MEDS: Fluticasone Propionate Nasal 50 MCG/SPRAY BOTTLE NS SCH (07:43)
[2021-04-26] MEDS: Insulin LISPRO 300 UNITS/3 ML VIAL SUBQ SCH ×3 (07:45→16:52)
[2021-04-26] MEDS: Cyanocobalamin (B-12) 1,000 MCG/ML VIAL IM SCH (07:50)
[2021-04-26] MEDS ORDERED: Insulin DETEMIR 100 UNIT/ML X5UNITS SUBQ SCH (09:00)
[2021-04-26] MEDS: Insulin DETEMIR 100 UNIT/ML X5UNITS SUBQ SCH (20:29)
[2021-04-27 02:43] LABS: Basophils % 0.2 %; Eosinophils % 0.4 %; Hematocrit 22.4 % (37.5-50.1); Hemoglobin 7.1 g/dL (12.9-16.9); Immature Granulocytes % 0.3 % (0-4); Lymphocytes # 1.3 K/mcL (0.6-4.6); Lymphocytes % 13.7 %; Mean Corpuscular HGB Conc 31.7 g/dL (31.6-35.5); Mean Corpuscular Hemoglobin 28.4 pg (28.0-33.3); Mean Corpuscular Volume 89.6 fL (83.0-100.0); Mean Platelet Volume 10.2 fL (9.4-12.4); Monocytes % 10.8 %; Neutrophils # 7.2 K/mcL (1.6-8.9); Platelet Count 273 K/mcL (140-400); Red Cell Distribution Width 15.9 % (11.5-14.5); Segmented Neutrophils % 74.6 %; White Blood Count 9.6 K/mcL (4.3-11.1)
[2021-04-27 02:57] LABS: Calcium 8.1 mg/dL (8.6-10.3); Potassium 4.3 mEq/L (3.5-5.1)
[2021-04-27] MEDS: polyethylene glycoL 3350 17 GM POWD.PACK PO SCH ×2 (03:46→07:15)
[2021-04-27] MEDS: *HR* Heparin 5,000 UNIT/ML VIAL SQ SCH ×2 (05:15→16:56)
[2021-04-27] MEDS: Cholecalciferol (D-3) 1,000 UNIT (25MCG) TABLET PO SCH (07:13)
[2021-04-27] MEDS: Metoprolol XL (24 HR) Succ 25 MG TAB.ER.24H PO SCH ×2 (07:13→21:18)
[2021-04-27] MEDS: Sennosides/Docusate Sodium TABLET PO SCH (07:14)
[2021-04-27] MEDS: FLUoxetine 20 MG CAPSULE PO SCH (07:14)
[2021-04-27] MEDS: Isosorbide MONOnitrate (24 HR) 30 MG TAB.ER.24H PO SCH (07:14)
[2021-04-27] MEDS: Finasteride 5 MG TABLET PO SCH (07:14)
[2021-04-27] MEDS: Cyanocobalamin (B-12) 1,000 MCG/ML VIAL IM SCH (07:15)
[2021-04-27] MEDS: Acetaminophen 325 MG TABLET PO PRN (07:33)
[2021-04-27] MEDS: Insulin LISPRO 300 UNITS/3 ML VIAL SUBQ SCH ×3 (07:39→16:54)
[2021-04-27] MEDS: Fluticasone Propionate Nasal 50 MCG/SPRAY BOTTLE NS SCH (07:40)
[2021-04-27] MEDS: Insulin DETEMIR 100 UNIT/ML X5UNITS SUBQ SCH ×2 (07:40→21:18)
[2021-04-27] MEDS: Budesonide/Formoterol 160/4.5 1 PUFF INH IH SCH ×2 (07:53→20:16)
[2021-04-27 09:58] LABS: Hematocrit 22.2 % (37.5-50.1); Hemoglobin 6.8 g/dL (12.9-16.9); Mean Corpuscular HGB Conc 30.6 g/dL (31.6-35.5); Mean Corpuscular Hemoglobin 27.8 pg (28.0-33.3); Mean Corpuscular Volume 90.6 fL (83.0-100.0); Mean Platelet Volume 10.2 fL (9.4-12.4); Platelet Count 274 K/mcL (140-400); Red Blood Count 2.45 M/mcL (4.19-5.50); Red Cell Distribution Width 15.9 % (11.5-14.5); White Blood Count 7.9 K/mcL (4.3-11.1)
[2021-04-27 10:11] LABS: Calcium 7.9 mg/dL (8.6-10.3); Phosphorous 3.3 mg/dL (2.7-4.5); Potassium 4.2 mEq/L (3.5-5.1)
[2021-04-27] MEDS ORDERED: 0.9 % Sodium Chloride 250 ML IVC SCH (11:00)
[2021-04-27] MEDS ORDERED: Chloraseptic Spray 177 ML BOTTLE MM PRN (11:36)
[2021-04-27 17:57] LABS: Hematocrit 28.1 % (37.5-50.1); Hemoglobin 8.8 g/dL (12.9-16.9)
[2021-04-28 04:03] LABS: Hematocrit 26.2 % (37.5-50.1); Hemoglobin 8.2 g/dL (12.9-16.9); Mean Corpuscular HGB Conc 31.3 g/dL (31.6-35.5); Mean Corpuscular Hemoglobin 28.4 pg (28.0-33.3); Mean Corpuscular Volume 90.7 fL (83.0-100.0); Mean Platelet Volume 10.2 fL (9.4-12.4); Platelet Count 257 K/mcL (140-400); Red Blood Count 2.89 M/mcL (4.19-5.50); Red Cell Distribution Width 15.9 % (11.5-14.5); White Blood Count 7.3 K/mcL (4.3-11.1)
[2021-04-28 04:23] LABS: Calcium 7.9 mg/dL (8.6-10.3); Potassium 4.3 mEq/L (3.5-5.1)
[2021-04-28] MEDS: *HR* Heparin 5,000 UNIT/ML VIAL SQ SCH ×2 (06:09→17:24)
[2021-04-28] MEDS: Budesonide/Formoterol 160/4.5 1 PUFF INH IH SCH ×2 (07:48→20:19)
[2021-04-28] MEDS: Finasteride 5 MG TABLET PO SCH (08:25)
[2021-04-28] MEDS: Isosorbide MONOnitrate (24 HR) 30 MG TAB.ER.24H PO SCH (08:26)
[2021-04-28] MEDS: Sennosides/Docusate Sodium TABLET PO SCH (08:26)
[2021-04-28] MEDS: Metoprolol XL (24 HR) Succ 25 MG TAB.ER.24H PO SCH ×2 (08:27→20:30)
[2021-04-28] MEDS: FLUoxetine 20 MG CAPSULE PO SCH (08:27)
[2021-04-28] MEDS: Cholecalciferol (D-3) 1,000 UNIT (25MCG) TABLET PO SCH (08:27)
[2021-04-28] MEDS: Insulin DETEMIR 100 UNIT/ML X5UNITS SUBQ SCH ×2 (08:38→20:35)
[2021-04-28] MEDS: polyethylene glycoL 3350 17 GM POWD.PACK PO SCH (08:41)
[2021-04-28] MEDS: Fluticasone Propionate Nasal 50 MCG/SPRAY BOTTLE NS SCH (08:42)
[2021-04-28] MEDS: Insulin LISPRO 300 UNITS/3 ML VIAL SUBQ SCH ×3 (09:11→17:25)
[2021-04-29 04:46] LABS: Hematocrit 25.5 % (37.5-50.1); Hemoglobin 8.1 g/dL (12.9-16.9); Mean Corpuscular HGB Conc 31.8 g/dL (31.6-35.5); Mean Corpuscular Hemoglobin 28.8 pg (28.0-33.3); Mean Corpuscular Volume 90.7 fL (83.0-100.0); Mean Platelet Volume 10.3 fL (9.4-12.4); Platelet Count 245 K/mcL (140-400); Red Blood Count 2.81 M/mcL (4.19-5.50); Red Cell Distribution Width 15.9 % (11.5-14.5); White Blood Count 7.3 K/mcL (4.3-11.1)
[2021-04-29 05:06] LABS: Calcium 7.7 mg/dL (8.6-10.3); Magnesium 1.7 mg/dL (1.6-2.6); Potassium 4.1 mEq/L (3.5-5.1)
[2021-04-29] MEDS: *HR* Heparin 5,000 UNIT/ML VIAL SQ SCH (06:29)
[2021-04-29 07:13] VITALS: BP 157/78; PULSE 60; TEMP 98.5
[2021-04-29] MEDS: Budesonide/Formoterol 160/4.5 1 PUFF INH IH SCH (07:28)
[2021-04-29] MEDS: Insulin LISPRO 300 UNITS/3 ML VIAL SUBQ SCH (07:31)
[2021-04-29] MEDS: polyethylene glycoL 3350 17 GM POWD.PACK PO SCH (08:20)
[2021-04-29] MEDS: Finasteride 5 MG TABLET PO SCH (08:21)
[2021-04-29] MEDS: Cholecalciferol (D-3) 1,000 UNIT (25MCG) TABLET PO SCH (08:22)
[2021-04-29] MEDS: FLUoxetine 20 MG CAPSULE PO SCH (08:22)
[2021-04-29] MEDS: Isosorbide MONOnitrate (24 HR) 30 MG TAB.ER.24H PO SCH (08:22)
[2021-04-29] MEDS: Sennosides/Docusate Sodium TABLET PO SCH (08:22)
[2021-04-29] MEDS: Metoprolol XL (24 HR) Succ 25 MG TAB.ER.24H PO SCH (08:22)
[2021-04-29] MEDS: Fluticasone Propionate Nasal 50 MCG/SPRAY BOTTLE NS SCH (08:23)
[2021-04-29] MEDS: Insulin DETEMIR 100 UNIT/ML X5UNITS SUBQ SCH (08:23)
[2021-04-29 11:27] LABS: Adenovirus Not Detected (Not Detect); Coronavirus 229E Not Detected (Not Detect); Coronavirus HKU1 Not Detected (Not Detect); Coronavirus NL63 Not Detected (Not Detect); Coronavirus OC43 Not Detected (Not Detect); Human Metapneumovirus Not Detected (Not Detect); Human Rhinovirus/Enterovirus Not Detected (Not Detect); SARS-CoV-2 Not Detected (Not Detect)
[2021-04-29 11:28] LABS: Bordetella Pertussis Not Detected (Not Detect); Chlamydophila pneumoniae Not Detected (Not Detect); Influenza A Subtype 2009 H1 Not Detected (Not Detect); Influenza B Not Detected (Not Detect); Mycoplasma pneumoniae Not Detected (Not Detect); Parainfluenza Virus 1 Not Detected (Not Detect); Parainfluenza Virus 2 Not Detected (Not Detect); Parainfluenza Virus 3 Not Detected (Not Detect); Parainfluenza Virus 4 Not Detected (Not Detect); Respiratory Syncytial Virus Not Detected (Not Detect)
[2021-04-29 16:01] VITALS: O2SAT 96
== END 2021-04-29 11:49 | disposition other institution (70) | DRG 682 ==
LOC: 2NNU → SUATTDRO 11:16
PROVIDERS: ADMIT Pharmacist; ATTEND Student in an Organized Health Care Education/Training Program

== ENCOUNTER 2021-05-15 14:29 | Inpatient (IN) ==
[2021-05-15 19:04] LABS: Basophils # 0.1 K/mcL (0.0-0.2); Basophils % 0.9 %; Eosinophils # 0.1 K/mcL (0.0-0.6); Eosinophils % 1.1 %; Hematocrit 28.6 % (37.5-50.1); Hemoglobin 9.1 g/dL (12.9-16.9); Immature Granulocytes % 0.4 % (0-4); Lymphocytes # 0.7 K/mcL (0.6-4.6); Mean Corpuscular HGB Conc 31.8 g/dL (31.6-35.5); Mean Corpuscular Hemoglobin 29.5 pg (28.0-33.3); Mean Corpuscular Volume 92.9 fL (83.0-100.0); Mean Platelet Volume 10.2 fL (9.4-12.4); Monocytes # 0.9 K/mcL (0.0-1.3); Platelet Count 232 K/mcL (140-400); Red Blood Count 3.08 M/mcL (4.19-5.50); Red Cell Distribution Width 16.2 % (11.5-14.5); Segmented Neutrophils % 70.6 %; White Blood Count 5.7 K/mcL (4.3-11.1)
[2021-05-15 19:18] LABS: Albumin 3.7 g/dL (3.5-5.7); Albumin/Globulin Ratio 1.3 (1.1-2.2); Bilirubin,Total 0.4 mg/dL (0.3-1.0); Calcium 8.1 mg/dL (8.6-10.3); Globulin 2.8 g/dL (2.4-3.5); Potassium 5.1 mEq/L (3.5-5.1); Total Protein 6.5 g/dL (6.4-8.9)
[2021-05-15] MEDS ORDERED: Naloxone 0.4 MG/ML INJ IVP PRN (20:10)
[2021-05-15] MEDS ORDERED: Ondansetron 4 MG/2 ML VIAL IVP PRN (20:10)
[2021-05-15] MEDS ORDERED: Acetaminophen 325 MG TABLET PO PRN (20:10)
[2021-05-15] MEDS ORDERED: D5% in Water 1,000 ML IVC PRN (20:32)
[2021-05-15] MEDS ORDERED: *HR* Dextrose 50 % in Water (Vial) 50 ML VIAL IVP PRN (20:32)
[2021-05-15] MEDS ORDERED: Dextrose Gel 15 GM/37.5 ML TUBE PO PRN ×2 (20:32)
[2021-05-16 02:07] LABS: Basophils # 0.1 K/mcL (0.0-0.2); Basophils % 0.9 %; Eosinophils # 0.1 K/mcL (0.0-0.6); Eosinophils % 1.3 %; Hematocrit 25.5 % (37.5-50.1); Immature Granulocytes % 0.2 % (0-4); Lymphocytes % 18.5 %; Mean Corpuscular HGB Conc 31.4 g/dL (31.6-35.5); Mean Corpuscular Hemoglobin 29.1 pg (28.0-33.3); Mean Corpuscular Volume 92.7 fL (83.0-100.0); Monocytes # 0.9 K/mcL (0.0-1.3); Monocytes % 16.1 %; Neutrophils # 3.4 K/mcL (1.6-8.9); Platelet Count 203 K/mcL (140-400); Red Blood Count 2.75 M/mcL (4.19-5.50); Red Cell Distribution Width 16.5 % (11.5-14.5); White Blood Count 5.4 K/mcL (4.3-11.1)
[2021-05-16 02:26] LABS: Albumin 3.1 g/dL (3.5-5.7); Calcium 7.7 mg/dL (8.6-10.3); Magnesium 1.9 mg/dL (1.6-2.6); Phosphorous 4.7 mg/dL (2.7-4.5)
[2021-05-16 02:39] LABS: INR 1.1; Prothrombin Time 12.2 Seconds (9.4-12.1); Thyroid Stimulating Hormone 3.371 mcIU/mL (0.340-5.600)
[2021-05-16 03:17] LABS: Hepatitis B Surface Antigen Nonreactive (Nonreactive)
[2021-05-16] MEDS: Insulin LISPRO 300 UNITS/3 ML VIAL SUBQ SCH ×5 (03:24→22:45)
[2021-05-16 03:46] LABS: Hepatitis A Antibody IgM Nonreactive (Nonreactive)
[2021-05-16 03:47] LABS: Hepatitis B Core IgM Nonreactive (Nonreactive)
[2021-05-16 03:48] LABS: Hepatitis C Virus Antibody Nonreactive (Nonreactive)
[2021-05-16 04:29] LABS: Bacteria,Urine Few per hpf (None-Few); Bilirubin,Urine Negative (Negative); Blood,Urine Small (Negative); Clarity,Urine Clear (Clear); Color,Urine Light-Yellow (Yellow); Glucose,Urine (UA) Normal (Normal); Ketones,Urine Negative (Negative); Leukocyte Esterase,Urine Large (Negative); Mucus,Urine Few per lpf (None-Few); Nitrite,Urine Negative (Negative); Protein,Urine 30 mg/dL (Neg-Trace); Specific Gravity,Urine 1.009 (1.010-1.025); Squamous Epithelial Cell,Urine Few per hpf (None-Few); Urobilinogen,Urine Normal (Normal); WBC,Urine 15-30 per hpf (0-3)
[2021-05-16] MEDS ORDERED: Vancomycin 1 EACH in 0.9 % Sodium Chloride 250 ML IVPB PRN (06:00)
[2021-05-16 13:05] LABS: Sodium, Urine 69.4 mEq/L
[2021-05-16] MEDS: Piperacillin/Tazobactam 3.375 GM in 0.9 % Sodium Chloride Mini Bag 100 ML IVPB SCH (15:53)
[2021-05-16] MEDS: Budesonide/Formoterol 160/4.5 1 PUFF INH IH SCH (20:10)
[2021-05-16] MEDS ORDERED: Famotidine 20 MG TABLET PO SCH (21:00)
[2021-05-17] MEDS: Piperacillin/Tazobactam 3.375 GM in 0.9 % Sodium Chloride Mini Bag 100 ML IVPB SCH ×2 (04:02→17:03)
[2021-05-17 04:49] LABS: Basophils # 0.1 K/mcL (0.0-0.2); Eosinophils # 0.1 K/mcL (0.0-0.6); Eosinophils % 1.3 %; Hematocrit 27.6 % (37.5-50.1); Hemoglobin 8.5 g/dL (12.9-16.9); Immature Granulocytes % 0.2 % (0-4); Mean Corpuscular HGB Conc 30.8 g/dL (31.6-35.5); Mean Corpuscular Volume 94.2 fL (83.0-100.0); Mean Platelet Volume 10.3 fL (9.4-12.4); Monocytes # 0.9 K/mcL (0.0-1.3); Monocytes % 14.3 %; Platelet Count 228 K/mcL (140-400); Red Blood Count 2.93 M/mcL (4.19-5.50); Segmented Neutrophils % 67.2 %
[2021-05-17 05:04] LABS: Calcium 7.6 mg/dL (8.6-10.3); Phosphorous 4.8 mg/dL (2.7-4.5); Potassium 5.5 mEq/L (3.5-5.1)
[2021-05-17 05:11] LABS: Procalcitonin 0.23 ng/mL (0.00-0.15)
[2021-05-17 05:38] LABS: Hepatitis B Surface Antigen Nonreactive (Nonreactive)
[2021-05-17 06:07] LABS: Hepatitis B Core IgM Nonreactive (Nonreactive)
[2021-05-17] MEDS: Budesonide/Formoterol 160/4.5 1 PUFF INH IH SCH ×2 (07:31→20:00)
[2021-05-17] MEDS ORDERED: *HR* Heparin 10,000 UNIT/10 ML VIAL IV PRN (07:45)
[2021-05-17] MEDS ORDERED: 0.9 % Sodium Chloride 1,000 ML PRIME SCH (07:45)
[2021-05-17] MEDS ORDERED: 0.9 % Sodium Chloride 250 ML IVC PRN (07:45)
[2021-05-17] MEDS ORDERED: Insulin Human Regular 10 UNIT in 0.9 % Sodium Chloride 10 ML IV ONE (09:01)
[2021-05-17] MEDS: FLUoxetine 20 MG CAPSULE PO SCH (09:02)
[2021-05-17] MEDS: Isosorbide MONOnitrate (24 HR) 30 MG TAB.ER.24H PO SCH (09:02)
[2021-05-17] MEDS: Finasteride 5 MG TABLET PO SCH (09:02)
[2021-05-17] MEDS ORDERED: *HR* Dextrose 50 % in Water (Vial) 50 ML VIAL IVP ONE (09:02)
[2021-05-17] MEDS: Insulin LISPRO 300 UNITS/3 ML VIAL SUBQ SCH ×4 (09:03→20:10)
[2021-05-17] MEDS ORDERED: Heparin 1,000 UNITS/500 mL 500 ML ONE (11:39)
[2021-05-17] MEDS ORDERED: *HR* Heparin 5,000 UNIT/ML VIAL ONE (12:09)
[2021-05-17] MEDS: Famotidine 20 MG TABLET PO SCH (20:08)
[2021-05-18] MEDS: Piperacillin/Tazobactam 3.375 GM in 0.9 % Sodium Chloride Mini Bag 100 ML IVPB SCH ×2 (03:59→15:55)
[2021-05-18 04:49] LABS: Hematocrit 27.7 % (37.5-50.1); Hemoglobin 8.6 g/dL (12.9-16.9); Mean Corpuscular Hemoglobin 29.5 pg (28.0-33.3); Mean Corpuscular Volume 94.9 fL (83.0-100.0); Mean Platelet Volume 10.2 fL (9.4-12.4); Platelet Count 218 K/mcL (140-400); Red Blood Count 2.92 M/mcL (4.19-5.50); Red Cell Distribution Width 16.3 % (11.5-14.5)
[2021-05-18 04:58] LABS: Calcium 7.7 mg/dL (8.6-10.3); Magnesium 1.7 mg/dL (1.6-2.6); Phosphorous 4.8 mg/dL (2.7-4.5); Potassium 5.1 mEq/L (3.5-5.1)
[2021-05-18] MEDS: Budesonide/Formoterol 160/4.5 1 PUFF INH IH SCH ×2 (07:14→19:47)
[2021-05-18] MEDS: Insulin LISPRO 300 UNITS/3 ML VIAL SUBQ SCH ×4 (07:44→20:35)
[2021-05-18] MEDS: FLUoxetine 20 MG CAPSULE PO SCH (07:45)
[2021-05-18] MEDS: Finasteride 5 MG TABLET PO SCH (07:45)
[2021-05-18] MEDS: Isosorbide MONOnitrate (24 HR) 30 MG TAB.ER.24H PO SCH (07:45)
[2021-05-18] MEDS ORDERED: 0.9 % Sodium Chloride 250 ML IVC PRN (09:38)
[2021-05-18] MEDS ORDERED: *HR* Heparin 10,000 UNIT/10 ML VIAL IV PRN (09:38)
[2021-05-18] MEDS: Insulin DETEMIR 100 UNIT/ML X5UNITS SUBQ SCH ×2 (12:43→20:35)
[2021-05-18] MEDS: Famotidine 20 MG TABLET PO SCH (20:37)
[2021-05-19] MEDS: Piperacillin/Tazobactam 3.375 GM in 0.9 % Sodium Chloride Mini Bag 100 ML IVPB SCH ×2 (04:16→17:08)
[2021-05-19 05:41] LABS: Hematocrit 27.3 % (37.5-50.1); Hemoglobin 8.7 g/dL (12.9-16.9); Mean Corpuscular HGB Conc 31.9 g/dL (31.6-35.5); Mean Corpuscular Hemoglobin 29.2 pg (28.0-33.3); Mean Corpuscular Volume 91.6 fL (83.0-100.0); Mean Platelet Volume 10.1 fL (9.4-12.4); Platelet Count 207 K/mcL (140-400); Red Blood Count 2.98 M/mcL (4.19-5.50); Red Cell Distribution Width 15.9 % (11.5-14.5); White Blood Count 9.1 K/mcL (4.3-11.1)
[2021-05-19 06:20] LABS: Magnesium 1.7 mg/dL (1.6-2.6)
[2021-05-19 06:32] LABS: Calcium 7.6 mg/dL (8.6-10.3); Potassium 3.2 mEq/L (3.5-5.1)
[2021-05-19] MEDS: Insulin LISPRO 300 UNITS/3 ML VIAL SUBQ SCH ×4 (07:39→21:38)
[2021-05-19] MEDS: Budesonide/Formoterol 160/4.5 1 PUFF INH IH SCH ×2 (07:51→19:59)
[2021-05-19] MEDS: Finasteride 5 MG TABLET PO SCH (07:55)
[2021-05-19] MEDS: FLUoxetine 20 MG CAPSULE PO SCH (07:55)
[2021-05-19] MEDS: Isosorbide MONOnitrate (24 HR) 30 MG TAB.ER.24H PO SCH (07:55)
[2021-05-19] MEDS: Insulin DETEMIR 100 UNIT/ML X5UNITS SUBQ SCH (07:55)
[2021-05-19] MEDS ORDERED: *HR* Propofol 200 MG/20 ML VIAL IVP ONE (13:15)
[2021-05-19] MEDS ORDERED: Ondansetron 4 MG/2 ML VIAL ONE (13:15)
[2021-05-19] MEDS ORDERED: *HR* FentaNYL (PF) 100 MCG/2 ML VIAL ONE (13:15)
[2021-05-19] MEDS ORDERED: Lidocaine -MPF 2% 2 ML VIAL ONE (13:15)
[2021-05-19] MEDS ORDERED: Acetaminophen IV 1,000 MG/100 ML BAG IVPB ONE (13:29)
[2021-05-19] MEDS ORDERED: Famotidine 20 MG/2 ML VIAL IVP ONE (13:29)
[2021-05-19] MEDS ORDERED: *HR* Labetalol 20 MG/4 ML SYRINGE IVP PRN (13:29)
[2021-05-19] MEDS ORDERED: *HR* OxyCODONE Immed Rel 5 MG TABLET PO PRN (13:29)
[2021-05-19] MEDS ORDERED: *HR* HYDROmorphone 2 MG TABLET PO PRN (13:29)
[2021-05-19] MEDS ORDERED: *HR* HYDROmorphone PF 0.5 MG/0.5 ML SYRINGE IVP PRN (13:34)
[2021-05-19] MEDS ORDERED: 0.9 % Sodium Chloride 250 ML IVC PRN (15:34)
[2021-05-19] MEDS ORDERED: Dextrose Gel 15 GM/37.5 ML TUBE PO PRN ×2 (15:34)
[2021-05-19] MEDS ORDERED: *HR* Dextrose 50 % in Water (Vial) 50 ML VIAL IVP PRN (15:34)
[2021-05-19] MEDS ORDERED: D5% in Water 1,000 ML IVC PRN (15:34)
[2021-05-19] MEDS ORDERED: Ondansetron 4 MG/2 ML VIAL IVP PRN (15:34)
[2021-05-19] MEDS ORDERED: Acetaminophen 325 MG TABLET PO PRN (15:34)
[2021-05-19] MEDS ORDERED: 0.9 % Sodium Chloride 1,000 ML PRIME SCH (15:34)
[2021-05-19] MEDS: Simethicone 80 MG TAB.CHEW PO PRN (18:23)
[2021-05-19] MEDS: Famotidine 20 MG TABLET PO SCH (21:38)
[2021-05-20 04:28] LABS: Hematocrit 27.1 % (37.5-50.1); Hemoglobin 8.3 g/dL (12.9-16.9); Mean Corpuscular HGB Conc 30.6 g/dL (31.6-35.5); Mean Corpuscular Hemoglobin 29.4 pg (28.0-33.3); Mean Corpuscular Volume 96.1 fL (83.0-100.0); Mean Platelet Volume 10.3 fL (9.4-12.4); Platelet Count 172 K/mcL (140-400); Red Blood Count 2.82 M/mcL (4.19-5.50); Red Cell Distribution Width 15.7 % (11.5-14.5); White Blood Count 6.8 K/mcL (4.3-11.1)
[2021-05-20 04:41] LABS: Calcium 7.4 mg/dL (8.6-10.3); Magnesium 1.7 mg/dL (1.6-2.6); Phosphorous 5.1 mg/dL (2.7-4.5)
[2021-05-20] MEDS: Piperacillin/Tazobactam 3.375 GM in 0.9 % Sodium Chloride Mini Bag 100 ML IVPB SCH ×2 (06:02→16:19)
[2021-05-20] MEDS ORDERED: Insulin LISPRO 300 UNITS/3 ML VIAL SUBQ ONE (06:11)
[2021-05-20] MEDS ORDERED: Insulin DETEMIR 100 UNIT/ML X5UNITS SUBQ ONE ×3 (07:50→21:00)
[2021-05-20] MEDS: Budesonide/Formoterol 160/4.5 1 PUFF INH IH SCH ×2 (07:58→20:19)
[2021-05-20] MEDS ORDERED: *HR* Heparin 10,000 UNIT/10 ML VIAL IV PRN ×2 (08:24)
[2021-05-20] MEDS ORDERED: 0.9 % Sodium Chloride 250 ML IVC PRN (08:24)
[2021-05-20] MEDS: FLUoxetine 20 MG CAPSULE PO SCH (09:22)
[2021-05-20] MEDS: Finasteride 5 MG TABLET PO SCH (09:22)
[2021-05-20] MEDS: Isosorbide MONOnitrate (24 HR) 30 MG TAB.ER.24H PO SCH (09:23)
[2021-05-20] MEDS: Insulin LISPRO 300 UNITS/3 ML VIAL SUBQ SCH ×4 (09:23→20:54)
[2021-05-20] MEDS: Famotidine 20 MG TABLET PO SCH (20:53)
[2021-05-21 01:48] LABS: Basophils % 0.5 %; Eosinophils # 0.1 K/mcL (0.0-0.6); Eosinophils % 1.2 %; Hematocrit 26.9 % (37.5-50.1); Hemoglobin 8.8 g/dL (12.9-16.9); Immature Granulocytes % 0.2 % (0-4); Lymphocytes % 11.5 %; Mean Corpuscular HGB Conc 32.7 g/dL (31.6-35.5); Mean Corpuscular Hemoglobin 30.4 pg (28.0-33.3); Mean Corpuscular Volume 93.1 fL (83.0-100.0); Monocytes # 1.5 K/mcL (0.0-1.3); Neutrophils # 5.7 K/mcL (1.6-8.9); Platelet Count 182 K/mcL (140-400); Red Blood Count 2.89 M/mcL (4.19-5.50); Red Cell Distribution Width 15.3 % (11.5-14.5); Segmented Neutrophils % 68.6 %; White Blood Count 8.3 K/mcL (4.3-11.1)
[2021-05-21 02:10] LABS: Calcium 7.6 mg/dL (8.6-10.3); Magnesium 1.6 mg/dL (1.6-2.6); Phosphorous 2.6 mg/dL (2.7-4.5); Potassium 3.1 mEq/L (3.5-5.1)
[2021-05-21] MEDS: Piperacillin/Tazobactam 3.375 GM in 0.9 % Sodium Chloride Mini Bag 100 ML IVPB SCH ×2 (03:39→17:29)
[2021-05-21] MEDS: Insulin LISPRO 300 UNITS/3 ML VIAL SUBQ SCH ×4 (08:16→20:53)
[2021-05-21] MEDS: Finasteride 5 MG TABLET PO SCH (08:26)
[2021-05-21] MEDS: Isosorbide MONOnitrate (24 HR) 30 MG TAB.ER.24H PO SCH (08:26)
[2021-05-21] MEDS: FLUoxetine 20 MG CAPSULE PO SCH (08:26)
[2021-05-21] MEDS: Budesonide/Formoterol 160/4.5 1 PUFF INH IH SCH ×2 (09:20→19:45)
[2021-05-21] MEDS ORDERED: 0.9 % Sodium Chloride 250 ML IVC ONE (18:02)
[2021-05-21] MEDS: Insulin DETEMIR 100 UNIT/ML X5UNITS SUBQ SCH (20:52)
[2021-05-21] MEDS: Famotidine 20 MG TABLET PO SCH (20:53)
[2021-05-21] MEDS: Simethicone 80 MG TAB.CHEW PO PRN (20:55)
[2021-05-22] MEDS: Piperacillin/Tazobactam 3.375 GM in 0.9 % Sodium Chloride Mini Bag 100 ML IVPB SCH (03:48)
[2021-05-22] MEDS: Budesonide/Formoterol 160/4.5 1 PUFF INH IH SCH ×2 (07:26→20:13)
[2021-05-22 07:52] LABS: Basophils % 0.5 %; Eosinophils # 0.2 K/mcL (0.0-0.6); Eosinophils % 1.8 %; Hematocrit 26.6 % (37.5-50.1); Hemoglobin 8.3 g/dL (12.9-16.9); Immature Granulocytes % 0.2 % (0-4); Mean Corpuscular HGB Conc 31.2 g/dL (31.6-35.5); Mean Corpuscular Hemoglobin 28.8 pg (28.0-33.3); Mean Corpuscular Volume 92.4 fL (83.0-100.0); Mean Platelet Volume 10.7 fL (9.4-12.4); Monocytes # 1.5 K/mcL (0.0-1.3); Monocytes % 16.7 %; Neutrophils # 6.1 K/mcL (1.6-8.9); Platelet Count 180 K/mcL (140-400); Red Blood Count 2.88 M/mcL (4.19-5.50); Segmented Neutrophils % 69.8 %; White Blood Count 8.8 K/mcL (4.3-11.1)
[2021-05-22 08:12] LABS: Calcium 7.4 mg/dL (8.6-10.3); Magnesium 1.5 mg/dL (1.6-2.6); Phosphorous 3.5 mg/dL (2.7-4.5); Potassium 3.1 mEq/L (3.5-5.1)
[2021-05-22] MEDS: Insulin LISPRO 300 UNITS/3 ML VIAL SUBQ SCH ×4 (08:28→21:07)
[2021-05-22] MEDS: Finasteride 5 MG TABLET PO SCH (08:37)
[2021-05-22] MEDS: FLUoxetine 20 MG CAPSULE PO SCH (08:37)
[2021-05-22] MEDS: Isosorbide MONOnitrate (24 HR) 30 MG TAB.ER.24H PO SCH (08:37)
[2021-05-22] MEDS: Insulin DETEMIR 100 UNIT/ML X5UNITS SUBQ SCH (21:07)
[2021-05-22] MEDS: Famotidine 20 MG TABLET PO SCH (21:08)
[2021-05-23 03:00] LABS: Basophils # 0.1 K/mcL (0.0-0.2); Eosinophils # 0.1 K/mcL (0.0-0.6); Eosinophils % 1.4 %; Hematocrit 25.3 % (37.5-50.1); Hemoglobin 8.1 g/dL (12.9-16.9); Immature Granulocytes % 0.3 % (0-4); Lymphocytes # 0.8 K/mcL (0.6-4.6); Lymphocytes % 10.6 %; Mean Corpuscular Hemoglobin 29.2 pg (28.0-33.3); Mean Corpuscular Volume 91.3 fL (83.0-100.0); Mean Platelet Volume 10.3 fL (9.4-12.4); Monocytes # 1.2 K/mcL (0.0-1.3); Monocytes % 14.8 %; Neutrophils # 5.7 K/mcL (1.6-8.9); Platelet Count 178 K/mcL (140-400); Red Blood Count 2.77 M/mcL (4.19-5.50); Red Cell Distribution Width 14.6 % (11.5-14.5); Segmented Neutrophils % 71.9 %; White Blood Count 7.9 K/mcL (4.3-11.1)
[2021-05-23 03:18] LABS: Calcium 7.4 mg/dL (8.6-10.3); Magnesium 1.8 mg/dL (1.6-2.6); Phosphorous 3.3 mg/dL (2.7-4.5); Potassium 3.5 mEq/L (3.5-5.1)
[2021-05-23] MEDS: Insulin LISPRO 300 UNITS/3 ML VIAL SUBQ SCH ×4 (07:25→20:59)
[2021-05-23] MEDS: FLUoxetine 20 MG CAPSULE PO SCH (07:30)
[2021-05-23] MEDS: Finasteride 5 MG TABLET PO SCH (07:31)
[2021-05-23] MEDS: Isosorbide MONOnitrate (24 HR) 30 MG TAB.ER.24H PO SCH (07:31)
[2021-05-23] MEDS: Budesonide/Formoterol 160/4.5 1 PUFF INH IH SCH ×2 (07:41→21:47)
[2021-05-23] MEDS ORDERED: *HR* Heparin 10,000 UNIT/10 ML VIAL IV PRN ×2 (07:47)
[2021-05-23] MEDS ORDERED: 0.9 % Sodium Chloride 250 ML IVC PRN (07:47)
[2021-05-23] MEDS: Famotidine 20 MG TABLET PO SCH (20:57)
[2021-05-23] MEDS: Insulin DETEMIR 100 UNIT/ML X5UNITS SUBQ SCH (21:00)
[2021-05-24 03:16] LABS: Basophils # 0.1 K/mcL (0.0-0.2); Basophils % 0.8 %; Eosinophils # 0.1 K/mcL (0.0-0.6); Eosinophils % 0.8 %; Hematocrit 26.8 % (37.5-50.1); Hemoglobin 8.3 g/dL (12.9-16.9); Immature Granulocytes % 0.3 % (0-4); Lymphocytes # 0.7 K/mcL (0.6-4.6); Lymphocytes % 8.1 %; Mean Corpuscular Volume 93.7 fL (83.0-100.0); Mean Platelet Volume 10.7 fL (9.4-12.4); Monocytes # 0.9 K/mcL (0.0-1.3); Monocytes % 11.8 %; Neutrophils # 6.3 K/mcL (1.6-8.9); Platelet Count 197 K/mcL (140-400); Red Blood Count 2.86 M/mcL (4.19-5.50); Red Cell Distribution Width 14.7 % (11.5-14.5); Segmented Neutrophils % 78.2 %
[2021-05-24 03:39] LABS: Calcium 7.6 mg/dL (8.6-10.3); Magnesium 1.8 mg/dL (1.6-2.6); Phosphorous 3.4 mg/dL (2.7-4.5)
[2021-05-24] MEDS: Insulin LISPRO 300 UNITS/3 ML VIAL SUBQ SCH ×3 (06:24→16:23)
[2021-05-24] MEDS: Finasteride 5 MG TABLET PO SCH (07:37)
[2021-05-24] MEDS: FLUoxetine 20 MG CAPSULE PO SCH (07:37)
[2021-05-24] MEDS: Isosorbide MONOnitrate (24 HR) 30 MG TAB.ER.24H PO SCH (07:37)
[2021-05-24] MEDS: Budesonide/Formoterol 160/4.5 1 PUFF INH IH SCH (10:26)
[2021-05-24] MEDS ORDERED: Heparin 1,000 UNITS/500 mL 500 ML ONE (11:17)
[2021-05-24] MEDS ORDERED: Lidocaine/EPI 1:100k 1% 50 ML VIAL ONE (11:17)
[2021-05-24] MEDS ORDERED: 0.9 % Sodium Chloride 500 ML ONE (11:21)
[2021-05-24] MEDS ORDERED: *HR* FentaNYL (PF) 100 MCG/2 ML VIAL IVP ONE (11:27)
[2021-05-24] MEDS ORDERED: *HR* Heparin 5,000 UNIT/ML VIAL ONE (11:29)
[2021-05-24] MEDS ORDERED: *HR* FentaNYL (PF) 100 MCG/2 ML VIAL ONE (11:29)
[2021-05-24] MEDS: CeFAZolin 2,000MG/50ML DUPLEX 2,000 MG/50 ML BAG IVPB ONE ×2 (11:45→12:50)
[2021-05-24 16:25] VITALS: BP 162/72; PULSE 76; TEMP 97.5; O2SAT 100
== END 2021-05-24 19:18 | disposition home or self-care (01) | DRG 660 ==
LOC: EMEROOARM 14:29 → 2ANU 14:29 → SUATTDRO 05-16 16:54
PROVIDERS: ADMIT Internal Medicine; ATTEND Internal Medicine
PROC: IRPERMA (2021-05-17 12:00)

== ENCOUNTER 2021-07-16 22:14 | Inpatient (IN) ==
[2021-07-16] MEDS ORDERED: Ondansetron 4 MG/2 ML VIAL IVP ONE (22:56)
[2021-07-16] MEDS ORDERED: 0.9 % Sodium Chloride 1,000 ML IVC ONE (22:56)
[2021-07-16] MEDS ORDERED: Ipratropium/Albuterol Neb 3 ML IH ONE (22:57)
[2021-07-16] MEDS ORDERED: Isovue-370 500 ML BOTTLE IVP ONE (23:30)
[2021-07-17] MEDS ORDERED: Isovue-370 500 ML BOTTLE IVP ONE (00:09)
[2021-07-17 00:53] LABS: Basophils % 0.4 %; Eosinophils % 0.2 %; Hematocrit 32.4 % (37.5-50.1); Hemoglobin 9.8 g/dL (12.9-16.9); Immature Granulocytes % 0.6 % (0-4); Lymphocytes # 0.7 K/mcL (0.6-4.6); Lymphocytes % 7.9 %; Mean Corpuscular HGB Conc 30.2 g/dL (31.6-35.5); Mean Corpuscular Hemoglobin 29.8 pg (28.0-33.3); Mean Corpuscular Volume 98.5 fL (83.0-100.0); Mean Platelet Volume 9.6 fL (9.4-12.4); Monocytes % 10.2 %; Neutrophils # 7.6 K/mcL (1.6-8.9); Platelet Count 212 K/mcL (140-400); Red Blood Count 3.29 M/mcL (4.19-5.50); Red Cell Distribution Width 14.6 % (11.5-14.5); Segmented Neutrophils % 80.7 %; White Blood Count 9.4 K/mcL (4.3-11.1)
[2021-07-17 01:32] LABS: BUN/Creatinine Ratio 5 (6-26); Blood Urea Nitrogen 22 mg/dL (8-23); Calcium 7.5 mg/dL (8.6-10.3); Carbon Dioxide 23 mEq/L (23-29); Chloride 93 mEq/L (98-107); Creatine Kinase 34 Units/L (30-223); Glucose 582 mg/dL (70-105); Magnesium 1.7 mg/dL (1.6-2.6); Osmolality,Calculated 302 (280-300); Sodium 131 mEq/L (136-145); Troponin I < 0.03 ng/mL (< 0.04); eGFR For African Americans 15 (> 60); eGFR For Non-African Americans 12 (> 60)
[2021-07-17] MEDS ORDERED: 0.9 % Sodium Chloride 1,000 ML IVC ONE (01:45)
[2021-07-17] MEDS ORDERED: Piperacillin/Tazobactam 3.375 GM in Water for inj. (sterile) 20 ML IVP ONE (02:16)
[2021-07-17 02:49] LABS: VBG HCO3 24 mEq/L (21-27); VBG PCO2 50 mmHg (41-51); VBG PH 7.29 pH Units (7.32-7.42); VBG PO2 81 mmHg (25-50)
[2021-07-17 03:30] LABS: Bacteria,Urine Many per hpf (None-Few); Bilirubin,Urine Negative (Negative); Blood,Urine Small (Negative); Clarity,Urine Ex.Turbid (Clear); Color,Urine Dark-Orange (Yellow); Glucose,Urine (UA) 100 mg/dL (Normal); Ketones,Urine Trace mg/dL (Negative); Leukocyte Esterase,Urine Large (Negative); Mucus,Urine Few per lpf (None-Few); Nitrite,Urine Negative (Negative); Protein,Urine >=600 mg/dL (Neg-Trace); Specific Gravity,Urine 1.013 (1.010-1.025); Urobilinogen,Urine Normal (Normal); WBC,Urine TNTC per hpf (0-3)
[2021-07-17] MEDS ORDERED: Naloxone 0.4 MG/ML INJ IVP PRN (03:35)
[2021-07-17] MEDS ORDERED: Ondansetron 4 MG/2 ML VIAL IVP PRN (03:35)
[2021-07-17] MEDS ORDERED: Acetaminophen 325 MG TABLET PO PRN (03:35)
[2021-07-17] MEDS ORDERED: D5% in 0.45% NACL 1,000 ML IVC PRN (04:37)
[2021-07-17] MEDS ORDERED: Insulin LISPRO 300 UNITS/3 ML VIAL SUBQ PRN (04:37)
[2021-07-17] MEDS ORDERED: D5% in 0.45% NACL w KCl 20 MEQ/1,000 ML MLS IVC PRN (04:37)
[2021-07-17] MEDS ORDERED: *HR* Dextrose 50 % in Water (Syg) 50 ML SYRINGE IVP PRN (04:37)
[2021-07-17] MEDS ORDERED: 0.45 % Sodium Chloride w/KCl 20 MEQ/1,000 ML MLS IVC SCH (04:45)
[2021-07-17] MEDS ORDERED: 0.9 % Sodium Chloride 1,000 ML IVC SCH (04:45)
[2021-07-17] MEDS ORDERED: 0.45 % Sodium Chloride w/KCl 20 MEQ/1,000 ML MLS IVC PRN (04:54)
[2021-07-17] MEDS ORDERED: 0.9 % Sodium Chloride 1,000 ML IVC PRN (04:54)
[2021-07-17] MEDS: *HR* Heparin 5,000 UNIT/ML VIAL SQ SCH ×2 (05:15→18:04)
[2021-07-17 05:34] LABS: INR 1.2; Prothrombin Time 13.2 Seconds (9.4-12.1)
[2021-07-17 05:45] LABS: Albumin 2.4 g/dL (3.5-5.7); Bilirubin,Direct 0.1 mg/dL (0.0-0.2); Bilirubin,Indirect 0.4 mg/dL (0.0-1.0); Bilirubin,Total 0.5 mg/dL (0.3-1.0); Globulin 2.5 g/dL (2.4-3.5); Magnesium 1.6 mg/dL (1.6-2.6); Total Protein 4.9 g/dL (6.4-8.9)
[2021-07-17 06:19] LABS: Adenovirus Not Detected (Not Detect); Bordetella Pertussis Not Detected (Not Detect); Chlamydophila pneumoniae Not Detected (Not Detect); Coronavirus 229E Not Detected (Not Detect); Coronavirus HKU1 Not Detected (Not Detect); Coronavirus NL63 Not Detected (Not Detect); Coronavirus OC43 Not Detected (Not Detect); Human Metapneumovirus Not Detected (Not Detect); Human Rhinovirus/Enterovirus Not Detected (Not Detect); Influenza A Subtype 2009 H1 Not Detected (Not Detect); Influenza B Not Detected (Not Detect); Mycoplasma pneumoniae Not Detected (Not Detect); Parainfluenza Virus 1 Not Detected (Not Detect); Parainfluenza Virus 2 Not Detected (Not Detect); Parainfluenza Virus 3 Not Detected (Not Detect); Parainfluenza Virus 4 Not Detected (Not Detect); Respiratory Syncytial Virus Not Detected (Not Detect); SARS-CoV-2 Not Detected (Not Detect)
[2021-07-17 06:27] LABS: Calcium 7.2 mg/dL (8.6-10.3); Potassium 3.1 mEq/L (3.5-5.1)
[2021-07-17] MEDS ORDERED: D5% in Water 1,000 ML IVC PRN (06:32)
[2021-07-17] MEDS ORDERED: Dextrose Gel 15 GM/37.5 ML TUBE PO PRN ×2 (06:32)
[2021-07-17] MEDS ORDERED: Insulin DETEMIR 100 UNIT/ML X5UNITS SUBQ SCH (06:45)
[2021-07-17] MEDS ORDERED: Vancomycin 1 EACH in 0.9 % Sodium Chloride 250 ML IVPB PRN (08:00)
[2021-07-17] MEDS: Insulin LISPRO 300 UNITS/3 ML VIAL SUBQ SCH ×4 (08:16→23:59)
[2021-07-17] MEDS ORDERED: *HR* Heparin 10,000 UNIT/10 ML VIAL IV PRN ×2 (08:53)
[2021-07-17] MEDS ORDERED: 0.9 % Sodium Chloride 250 ML IVC PRN (08:53)
[2021-07-17] MEDS ORDERED: 0.9 % Sodium Chloride 1,000 ML PRIME SCH (09:00)
[2021-07-17 10:04] LABS: Hepatitis B Surface Antibody < 3.10 mIU/mL
[2021-07-17 10:15] LABS: Hepatitis B Surface Antigen Nonreactive (Nonreactive)
[2021-07-17 11:21] LABS: Estimated Average Glucose 209 mg/dl; Hemoglobin A1C 8.9 %
[2021-07-17] MEDS: *HR* Dextrose 50 % in Water (Syg) 50 ML SYRINGE IVP PRN ×3 (11:46→14:48)
[2021-07-17] MEDS ORDERED: D10% in Water 500 ML IVC SCH (13:15)
[2021-07-17] MEDS: Piperacillin/Tazobactam 3.375 GM in 0.9 % Sodium Chloride Mini Bag 100 ML IVPB SCH (15:03)
[2021-07-17] MEDS: D10% in Water 500 ML IVC SCH ×2 (15:04→21:19)
[2021-07-18] MEDS: Piperacillin/Tazobactam 3.375 GM in 0.9 % Sodium Chloride Mini Bag 100 ML IVPB SCH ×2 (02:12→15:09)
[2021-07-18] MEDS: *HR* Heparin 5,000 UNIT/ML VIAL SQ SCH ×2 (05:09→17:48)
[2021-07-18] MEDS: Insulin LISPRO 300 UNITS/3 ML VIAL SUBQ SCH ×3 (05:10→17:48)
[2021-07-18 06:33] LABS: Basophils # 0.1 K/mcL (0.0-0.2); Basophils % 0.6 %; Eosinophils # 0.2 K/mcL (0.0-0.6); Eosinophils % 1.6 %; Hematocrit 35.6 % (37.5-50.1); Hemoglobin 10.9 g/dL (12.9-16.9); Immature Granulocytes % 0.3 % (0-4); Lymphocytes # 0.9 K/mcL (0.6-4.6); Mean Corpuscular HGB Conc 30.6 g/dL (31.6-35.5); Mean Corpuscular Hemoglobin 29.9 pg (28.0-33.3); Mean Corpuscular Volume 97.5 fL (83.0-100.0); Mean Platelet Volume 9.6 fL (9.4-12.4); Monocytes # 1.7 K/mcL (0.0-1.3); Monocytes % 16.3 %; Neutrophils # 7.5 K/mcL (1.6-8.9); Platelet Count 212 K/mcL (140-400); Red Blood Count 3.65 M/mcL (4.19-5.50); Red Cell Distribution Width 14.7 % (11.5-14.5); Segmented Neutrophils % 72.2 %; White Blood Count 10.4 K/mcL (4.3-11.1)
[2021-07-18 06:51] LABS: Calcium 7.6 mg/dL (8.6-10.3); Potassium 3.2 mEq/L (3.5-5.1)
[2021-07-18] MEDS ORDERED: Loratadine 10 MG TABLET PO PRN (07:29)
[2021-07-18] MEDS: Cholecalciferol (D-3) 1,000 UNIT (25MCG) TABLET PO SCH (08:19)
[2021-07-18] MEDS: Multivit/Ca/Min/Fe/FA 1 TAB TABLET PO SCH (08:19)
[2021-07-18] MEDS: NIFEdipine XL (24 HR) 60 MG TAB.ER.24 PO SCH (08:19)
[2021-07-18] MEDS: carvediloL 6.25 MG TABLET PO SCH ×2 (08:19→17:48)
[2021-07-18] MEDS: Isosorbide MONOnitrate (24 HR) 30 MG TAB.ER.24H PO SCH (08:19)
[2021-07-18] MEDS: FLUoxetine 20 MG CAPSULE PO SCH (08:19)
[2021-07-18] MEDS: Finasteride 5 MG TABLET PO SCH (08:19)
[2021-07-18] MEDS: Fluticasone Propionate Nasal 50 MCG/SPRAY BOTTLE NS PRN (08:22)
[2021-07-18] MEDS: Budesonide/Formoterol 160/4.5 1 PUFF INH IH SCH ×2 (11:20→20:53)
[2021-07-18 14:41] LABS: Total Protein,Pleural Fluid 2.9 g/dL
[2021-07-18] MEDS ORDERED: E-Z-HD (BARIUM SULF) SUSPENSION PO ONE (14:55)
[2021-07-18 15:52] LABS: Appearance of Pleural Fl Bloody (Clear)
[2021-07-18 16:01] LABS: Basophils,Pleural Fluid 0 %; Eosinophils,Pleural Fluid 0 %; Monocytes,Pleural Fluid 0 %
[2021-07-18 19:07] LABS: Lactate Dehydrogenase 185 Units/L (140-271); Total Protein 5.3 g/dL (6.4-8.9)
[2021-07-18] MEDS ORDERED: Famotidine 20 MG TABLET PO SCH (21:00)
[2021-07-19] MEDS: Piperacillin/Tazobactam 3.375 GM in 0.9 % Sodium Chloride Mini Bag 100 ML IVPB SCH ×2 (02:26→15:39)
[2021-07-19] MEDS: *HR* Heparin 5,000 UNIT/ML VIAL SQ SCH ×2 (05:51→17:12)
[2021-07-19] MEDS: Insulin LISPRO 300 UNITS/3 ML VIAL SUBQ SCH ×3 (08:06→17:12)
[2021-07-19] MEDS: carvediloL 6.25 MG TABLET PO SCH ×2 (08:08→17:12)
[2021-07-19] MEDS: FLUoxetine 20 MG CAPSULE PO SCH (08:09)
[2021-07-19] MEDS: Cholecalciferol (D-3) 1,000 UNIT (25MCG) TABLET PO SCH (08:09)
[2021-07-19] MEDS: Multivit/Ca/Min/Fe/FA 1 TAB TABLET PO SCH (08:09)
[2021-07-19] MEDS: Isosorbide MONOnitrate (24 HR) 30 MG TAB.ER.24H PO SCH (08:09)
[2021-07-19] MEDS: NIFEdipine XL (24 HR) 60 MG TAB.ER.24 PO SCH (08:09)
[2021-07-19] MEDS ORDERED: 0.9 % Sodium Chloride 250 ML IVC PRN (09:01)
[2021-07-19] MEDS: Budesonide/Formoterol 160/4.5 1 PUFF INH IH SCH ×2 (09:01→21:23)
[2021-07-19] MEDS ORDERED: *HR* Heparin 10,000 UNIT/10 ML VIAL IV PRN (09:01)
[2021-07-19 09:19] LABS: Basophils # 0.1 K/mcL (0.0-0.2); Basophils % 1.1 %; Eosinophils # 0.1 K/mcL (0.0-0.6); Eosinophils % 1.8 %; Hematocrit 35.5 % (37.5-50.1); Hemoglobin 10.5 g/dL (12.9-16.9); Immature Granulocytes % 0.4 % (0-4); Lymphocytes # 0.7 K/mcL (0.6-4.6); Lymphocytes % 9.1 %; Mean Corpuscular HGB Conc 29.6 g/dL (31.6-35.5); Mean Corpuscular Hemoglobin 29.3 pg (28.0-33.3); Mean Corpuscular Volume 99.2 fL (83.0-100.0); Mean Platelet Volume 9.7 fL (9.4-12.4); Monocytes % 12.8 %; Neutrophils # 5.9 K/mcL (1.6-8.9); Platelet Count 201 K/mcL (140-400); Red Blood Count 3.58 M/mcL (4.19-5.50); Red Cell Distribution Width 14.2 % (11.5-14.5); Segmented Neutrophils % 74.8 %; White Blood Count 7.9 K/mcL (4.3-11.1)
[2021-07-19 09:26] LABS: Calcium 7.5 mg/dL (8.6-10.3); Potassium 4.1 mEq/L (3.5-5.1)
[2021-07-19] MEDS: Finasteride 5 MG TABLET PO SCH (13:38)
[2021-07-19] MEDS: Insulin DETEMIR 100 UNIT/ML X5UNITS SUBQ SCH ×2 (13:38→20:11)
[2021-07-19] MEDS: Doxycycline 100 MG CAPSULE PO SCH (15:40)
[2021-07-19] MEDS: Fluticasone Propionate Nasal 50 MCG/SPRAY BOTTLE NS PRN (17:16)
[2021-07-20] MEDS ORDERED: *HR* Dextrose 50 % in Water (Vial) 50 ML VIAL ONE (02:53)
[2021-07-20] MEDS: Piperacillin/Tazobactam 3.375 GM in 0.9 % Sodium Chloride Mini Bag 100 ML IVPB SCH ×2 (03:25→14:26)
[2021-07-20 05:03] LABS: Hematocrit 30.3 % (37.5-50.1); Hemoglobin 9.5 g/dL (12.9-16.9); Mean Corpuscular HGB Conc 31.4 g/dL (31.6-35.5); Mean Corpuscular Hemoglobin 29.9 pg (28.0-33.3); Mean Corpuscular Volume 95.3 fL (83.0-100.0); Mean Platelet Volume 9.5 fL (9.4-12.4); Platelet Count 178 K/mcL (140-400); Red Blood Count 3.18 M/mcL (4.19-5.50); White Blood Count 7.2 K/mcL (4.3-11.1)
[2021-07-20 05:21] LABS: Calcium 7.3 mg/dL (8.6-10.3); Potassium 3.4 mEq/L (3.5-5.1)
[2021-07-20] MEDS: *HR* Heparin 5,000 UNIT/ML VIAL SQ SCH ×2 (07:25→16:34)
[2021-07-20] MEDS: Doxycycline 100 MG CAPSULE PO SCH ×2 (07:25→16:33)
[2021-07-20] MEDS: Budesonide/Formoterol 160/4.5 1 PUFF INH IH SCH ×2 (07:47→19:59)
[2021-07-20] MEDS: Finasteride 5 MG TABLET PO SCH (08:53)
[2021-07-20] MEDS: FLUoxetine 20 MG CAPSULE PO SCH (08:53)
[2021-07-20] MEDS: Isosorbide MONOnitrate (24 HR) 30 MG TAB.ER.24H PO SCH (08:53)
[2021-07-20] MEDS: Cholecalciferol (D-3) 1,000 UNIT (25MCG) TABLET PO SCH (08:53)
[2021-07-20] MEDS: Multivit/Ca/Min/Fe/FA 1 TAB TABLET PO SCH (08:53)
[2021-07-20] MEDS: NIFEdipine XL (24 HR) 60 MG TAB.ER.24 PO SCH (08:54)
[2021-07-20] MEDS: carvediloL 6.25 MG TABLET PO SCH ×2 (08:54→16:33)
[2021-07-20] MEDS: Insulin LISPRO 300 UNITS/3 ML VIAL SUBQ SCH ×3 (08:55→16:36)
[2021-07-20] MEDS: Insulin DETEMIR 100 UNIT/ML X5UNITS SUBQ SCH (12:22)
[2021-07-20 13:01] LABS: Fluid Source for Albumin PLEURAL
[2021-07-20] MEDS ORDERED: Insulin DETEMIR 100 UNIT/ML X5UNITS SUBQ SCH (21:00)
[2021-07-21] MEDS: Piperacillin/Tazobactam 3.375 GM in 0.9 % Sodium Chloride Mini Bag 100 ML IVPB SCH ×2 (03:00→15:11)
[2021-07-21 05:55] LABS: Hematocrit 32.6 % (37.5-50.1); Hemoglobin 9.9 g/dL (12.9-16.9); Mean Corpuscular HGB Conc 30.4 g/dL (31.6-35.5); Mean Corpuscular Hemoglobin 29.2 pg (28.0-33.3); Mean Corpuscular Volume 96.2 fL (83.0-100.0); Mean Platelet Volume 9.4 fL (9.4-12.4); Platelet Count 193 K/mcL (140-400); Red Blood Count 3.39 M/mcL (4.19-5.50); Red Cell Distribution Width 14.4 % (11.5-14.5)
[2021-07-21 06:16] LABS: Calcium 7.6 mg/dL (8.6-10.3); Potassium 4.2 mEq/L (3.5-5.1)
[2021-07-21] MEDS: *HR* Heparin 5,000 UNIT/ML VIAL SQ SCH ×2 (06:36→18:47)
[2021-07-21] MEDS: Doxycycline 100 MG CAPSULE PO SCH ×2 (06:36→18:47)
[2021-07-21] MEDS: Budesonide/Formoterol 160/4.5 1 PUFF INH IH SCH ×2 (07:44→19:57)
[2021-07-21] MEDS: Insulin LISPRO 300 UNITS/3 ML VIAL SUBQ SCH ×3 (08:00→18:48)
[2021-07-21] MEDS: carvediloL 6.25 MG TABLET PO SCH ×2 (08:00→15:13)
[2021-07-21] MEDS ORDERED: 0.9 % Sodium Chloride 250 ML IVC PRN (08:50)
[2021-07-21] MEDS: Multivit/Ca/Min/Fe/FA 1 TAB TABLET PO SCH ×2 (09:00→15:13)
[2021-07-21] MEDS: Insulin DETEMIR 100 UNIT/ML X5UNITS SUBQ SCH ×2 (09:00→15:22)
[2021-07-21] MEDS: FLUoxetine 20 MG CAPSULE PO SCH ×2 (09:00→15:14)
[2021-07-21] MEDS: Cholecalciferol (D-3) 1,000 UNIT (25MCG) TABLET PO SCH ×2 (09:00→15:14)
[2021-07-21] MEDS: NIFEdipine XL (24 HR) 60 MG TAB.ER.24 PO SCH (09:00)
[2021-07-21] MEDS: Isosorbide MONOnitrate (24 HR) 30 MG TAB.ER.24H PO SCH ×2 (09:00→15:14)
[2021-07-21] MEDS: Finasteride 5 MG TABLET PO SCH ×2 (09:00→15:15)
[2021-07-21] MEDS: *HR* Dextrose 50 % in Water (Syg) 50 ML SYRINGE IVP PRN ×2 (23:30→23:45)
[2021-07-22] MEDS: Piperacillin/Tazobactam 3.375 GM in 0.9 % Sodium Chloride Mini Bag 100 ML IVPB SCH ×2 (05:23→16:26)
[2021-07-22] MEDS: *HR* Heparin 5,000 UNIT/ML VIAL SQ SCH ×2 (05:24→18:00)
[2021-07-22] MEDS: Doxycycline 100 MG CAPSULE PO SCH ×2 (05:24→17:59)
[2021-07-22] MEDS: Insulin LISPRO 300 UNITS/3 ML VIAL SUBQ SCH ×3 (07:41→17:59)
[2021-07-22] MEDS: Finasteride 5 MG TABLET PO SCH (08:45)
[2021-07-22] MEDS: Multivit/Ca/Min/Fe/FA 1 TAB TABLET PO SCH (08:45)
[2021-07-22] MEDS: FLUoxetine 20 MG CAPSULE PO SCH (08:45)
[2021-07-22] MEDS: Cholecalciferol (D-3) 1,000 UNIT (25MCG) TABLET PO SCH (08:45)
[2021-07-22] MEDS: NIFEdipine XL (24 HR) 60 MG TAB.ER.24 PO SCH (08:49)
[2021-07-22] MEDS: carvediloL 6.25 MG TABLET PO SCH ×2 (08:49→18:52)
[2021-07-22] MEDS: Isosorbide MONOnitrate (24 HR) 30 MG TAB.ER.24H PO SCH (08:49)
[2021-07-22] MEDS: Insulin DETEMIR 100 UNIT/ML X5UNITS SUBQ SCH (09:06)
[2021-07-22] MEDS: Budesonide/Formoterol 160/4.5 1 PUFF INH IH SCH ×2 (10:03→20:00)
[2021-07-23] MEDS: Piperacillin/Tazobactam 3.375 GM in 0.9 % Sodium Chloride Mini Bag 100 ML IVPB SCH ×2 (02:31→15:24)
[2021-07-23] MEDS: *HR* Heparin 5,000 UNIT/ML VIAL SQ SCH ×2 (05:58→17:10)
[2021-07-23] MEDS: Doxycycline 100 MG CAPSULE PO SCH ×2 (05:58→16:57)
[2021-07-23] MEDS: Budesonide/Formoterol 160/4.5 1 PUFF INH IH SCH ×2 (07:49→20:26)
[2021-07-23] MEDS: carvediloL 6.25 MG TABLET PO SCH ×2 (08:49→17:11)
[2021-07-23] MEDS: Finasteride 5 MG TABLET PO SCH (08:50)
[2021-07-23] MEDS: Isosorbide MONOnitrate (24 HR) 30 MG TAB.ER.24H PO SCH (08:50)
[2021-07-23] MEDS: FLUoxetine 20 MG CAPSULE PO SCH (08:50)
[2021-07-23] MEDS: NIFEdipine XL (24 HR) 60 MG TAB.ER.24 PO SCH (08:50)
[2021-07-23] MEDS: Insulin DETEMIR 100 UNIT/ML X5UNITS SUBQ SCH (08:51)
[2021-07-23] MEDS: Insulin LISPRO 300 UNITS/3 ML VIAL SUBQ SCH ×3 (08:51→17:11)
[2021-07-23] MEDS: Cholecalciferol (D-3) 1,000 UNIT (25MCG) TABLET PO SCH (09:01)
[2021-07-23] MEDS: Multivit/Ca/Min/Fe/FA 1 TAB TABLET PO SCH (09:01)
[2021-07-24] MEDS: Piperacillin/Tazobactam 3.375 GM in 0.9 % Sodium Chloride Mini Bag 100 ML IVPB SCH (03:27)
[2021-07-24] MEDS: *HR* Heparin 5,000 UNIT/ML VIAL SQ SCH ×2 (05:21→18:15)
[2021-07-24] MEDS: Doxycycline 100 MG CAPSULE PO SCH (05:21)
[2021-07-24] MEDS: Budesonide/Formoterol 160/4.5 1 PUFF INH IH SCH ×2 (07:49→21:15)
[2021-07-24] MEDS ORDERED: 0.9 % Sodium Chloride 250 ML IVC PRN (08:41)
[2021-07-24] MEDS: Isosorbide MONOnitrate (24 HR) 30 MG TAB.ER.24H PO SCH (08:54)
[2021-07-24] MEDS: Finasteride 5 MG TABLET PO SCH (08:54)
[2021-07-24] MEDS: FLUoxetine 20 MG CAPSULE PO SCH (08:54)
[2021-07-24] MEDS: NIFEdipine XL (24 HR) 60 MG TAB.ER.24 PO SCH (08:54)
[2021-07-24] MEDS: Cholecalciferol (D-3) 1,000 UNIT (25MCG) TABLET PO SCH (08:55)
[2021-07-24] MEDS: Multivit/Ca/Min/Fe/FA 1 TAB TABLET PO SCH ×2 (08:55→09:16)
[2021-07-24] MEDS: Insulin LISPRO 300 UNITS/3 ML VIAL SUBQ SCH ×3 (08:55→18:12)
[2021-07-24] MEDS: carvediloL 6.25 MG TABLET PO SCH ×2 (08:55→18:12)
[2021-07-24] MEDS: Insulin DETEMIR 100 UNIT/ML X5UNITS SUBQ SCH (08:56)
[2021-07-25] MEDS: *HR* Heparin 5,000 UNIT/ML VIAL SQ SCH (05:38)
[2021-07-25] MEDS: Budesonide/Formoterol 160/4.5 1 PUFF INH IH SCH (08:06)
[2021-07-25] MEDS: Cholecalciferol (D-3) 1,000 UNIT (25MCG) TABLET PO SCH (09:11)
[2021-07-25] MEDS: FLUoxetine 20 MG CAPSULE PO SCH (09:12)
[2021-07-25] MEDS: Isosorbide MONOnitrate (24 HR) 30 MG TAB.ER.24H PO SCH (09:12)
[2021-07-25] MEDS: Multivit/Ca/Min/Fe/FA 1 TAB TABLET PO SCH (09:12)
[2021-07-25] MEDS: Finasteride 5 MG TABLET PO SCH (09:12)
[2021-07-25] MEDS: carvediloL 6.25 MG TABLET PO SCH (09:17)
[2021-07-25] MEDS: NIFEdipine XL (24 HR) 60 MG TAB.ER.24 PO SCH (09:18)
[2021-07-25] MEDS: Insulin LISPRO 300 UNITS/3 ML VIAL SUBQ SCH (09:21)
[2021-07-25] MEDS: Insulin DETEMIR 100 UNIT/ML X5UNITS SUBQ SCH (09:21)
[2021-07-25] MEDS ORDERED: *HR* LORazepam 2 MG/ML VIAL IVP PRN (09:51)
[2021-07-25 11:38] VITALS: BP 77/38; PULSE 79; TEMP 97.5; O2SAT 74
== END 2021-07-25 11:33 | disposition hospice, inpatient (51) | DRG 595 ==
LOC: EMEROOARM 22:14 → 2NENU 22:14 → SUATTDRO 07-17 03:59 → 2ANU 07-22 19:10
PROVIDERS: ADMIT Student in an Organized Health Care Education/Training Program; ATTEND Internal Medicine

== ENCOUNTER 2021-07-25 11:30 | Inpatient (IN) ==
[2021-07-25] MEDS ORDERED: *HR* FentaNYL (PF) 100 MCG/2 ML VIAL IVP PRN (12:20)
[2021-07-25] MEDS ORDERED: Scopolamine Patch 1.5 MG PATCH.TD72 TD SCH (12:30)
[2021-07-25] MEDS: *HR* LORazepam 2 MG/ML VIAL IVP PRN ×2 (12:36→16:52)
[2021-07-25 15:10] VITALS: O2SAT 98
[2021-07-25] MEDS ORDERED: Ondansetron 4 MG/2 ML VIAL IVP SCH (18:00)
[2021-07-25] MEDS ORDERED: Sennosides/Docusate Sodium TABLET PO SCH (21:00)
[2021-07-25] MEDS ORDERED: Budesonide/Formoterol 160/4.5 1 PUFF INH IH SCH (22:00)
[2021-07-26] MEDS ORDERED: FLUoxetine HCl Oral Soln 20 MG/5 ML UDC PO SCH (09:00)
[2021-07-26] MEDS ORDERED: Finasteride 5 MG TABLET PO SCH (09:00)
== END 2021-07-25 18:46 | disposition expired | DRG 951 ==
LOC: 2ANU 11:35
PROVIDERS: ADMIT Internal Medicine Hospice and Palliative Medicine; ATTEND Internal Medicine Hospice and Palliative Medicine